=== PATIENT | male | born 1955 | race Hispanic/Latino ===

== ENCOUNTER 2018-04-17 01:37 | Inpatient (IN) | payer MEDICARE ==
[2018-04-17] MEDS ORDERED: Albuterol-Ipratrop 3 mg / 0.5 (3 ml) UD INH STA (01:52)
--- NOTE | 2018-04-17 01:54 | C.PDOC ---
History Of Present Illness 62-year-old male brought in by ambulance after he was found in a friend's bed having a seizure. EMS arrived and found patient to be post-ictal, with blood sugar of 28. Patient was given dextrose in the field, and sugar improved. Records reviewed, and patient was just discharged home on 03/12/18. PMHx includes stage 5 chronic kidney disease, HTN, hypercholesterolemia, CHF, CVA w/ resulting right hemiparesis, and diabetes mellitus. Last admission patient was refusing dialysis. Recent echocardiogram revealed diastolic dysfunction and EF of 55-56%. All history obtained via EMS. There is no evidence of trauma to head or extremities. Time Seen by Provider: 04/17/18 01:42 Chief Complaint (Nursing): Altered Mental Status History Per: EMS History/Exam Limitations: None Onset/Duration Of Symptoms: Unknown Onset Of Symptoms: Cannot Confirm Onset Current Symptoms Are (Timing): Better Associated Symptoms: Seizure Past Medical History Reviewed: Historical Data, Nursing Documentation, Vital Signs Vital Signs: Last Vital Signs Temp 97.4 F L 04/17/18 02:43 Pulse 47 L 04/17/18 04:09 Resp 12 04/17/18 04:09 BP 131/67 04/17/18 04:09 Pulse Ox 99 04/17/18 04:12 - Medical History PMH: CHF, CVA (x3), Diabetes, HTN, Kidney Stones, Chronic Kidney Disease Surgical History: No Surg Hx Family History: States: Unknown Family Hx - Social History Hx Alcohol Use: Yes Hx Substance Use: No - Immunization History Hx Tetanus Toxoid Vaccination: No Hx Influenza Vaccination: No Hx Pneumococcal Vaccination: No Review Of Systems Review Of Systems: ROS cannot be obtained secondary to pt's inabilty to answer questions. Constitutional: Negative for: Fever, Chills Eyes: Negative for: Pain, Vision Change ENT: Negative for: Ear Pain, Ear Discharge, Nose Pain Cardiovascular: Negative for: Chest Pain, Palpitations, Orthopnea, Paroxysmal Noc. Dyspnea Respiratory: Positive for: Shortness of Breath. Negative for: Cough Gastrointestinal: Negative for: Nausea, Vomiting Genitourinary: Negative for: Dysuria, Incontinence Neurological: Negative for: Weakness, Numbness Psych: Negative for: Anxiety Physical Exam - Physical Exam Appears: Non-toxic, No Acute Distress Skin: Normal Color, Warm Head: Atraumatic, Normacephalic, No Swelling (or hematoma) Eye(s): bilateral: Normal Inspection (no scleral icterus), PERRL, EOMI Ear(s): Bilateral: Normal Nose: Normal Oral Mucosa: Moist Tongue: Normal Appearing Lips: Normal Appearing Teeth: Normal Dentition Neck: Supple Chest: Symmetrical Cardiovascular: Rhythm Regular, No Murmur Respiratory: No Accessory Muscle Use, No Rales, No Rhonchi, Wheezing ( expiratory wheezing bilaterally) Gastrointestinal/Abdominal: Soft, No Tenderness, No Distention Extremity: Bilateral: Atraumatic, No Pedal Edema, Normal Color And Temperature, Normal ROM Pulses: Left Dorsalis Pedis: Normal, Right Dorsalis Pedis: Normal Neurological/Psych: Other (Alert, awake, responds appropriately to questions) ED Course And Treatment - Laboratory Results Result Diagrams: 04/17/18 02:06 04/17/18 02:06 ECG: Interpreted By Me, Viewed By Nh ECG Rhythm: Sinus Bradycardia Interpretation Of ECG: sinus meliza at 46 bpm, AK 196, QRS 126, QT 504, QTc 450. T-wave inversions in 1 and avL. Rate From EC O2 Sat by Pulse Oximetry: 99 (RA) Pulse Ox Interpretation: Normal - Radiology CXR: Interpreted by Me, Viewed By Nh CXR Interpretation: Yes: Infiltrates (Right-sided) - CT Scan/US Head CT Other Rad Studies (CT/US): Read By Radiologist, Radiology Report Reviewed CT/US Interpretation: Name: CHIARA CHAN Age: 62Years M Date: 04/17/2018. Requesting Physician: Mitchell Cassidy : 1955. [facility] Procedure Ordered As Accession Number of Images. CT HEAD WO CT HEAD W O CONTRAST [id number] 132. Provided Clinical History: AMS. EXAM: CT Head Without Intravenous Contrast. EXAM DATE/TIME: 04/17/2018 1:51 AM. CLINICAL HISTORY: 62 years old, male; Pain; Headache and other: AMS; Patient HX: 8- 18. TECHNIQUE: Axial computed tomography images of the head/brain without intravenous contrast. 132 images are. submitted. Axial reformatted images are submitted in bone windows. All CT scans at this facility use at least one of these dose optimization techniques: automated. exposure control; mA and/or kV adjustment per patient size (includes targeted exams where dose is. matched to clinical indication); or iterative reconstruction. COMPARISON: No relevant prior studies available. FINDINGS: Brain: Cerebral and cerebellar volume loss. Patchy hypodensity is seen in the periventricular and. subcortical white matter. Left hemispheric encephalomalacia near the vertex secondary to chronic. infarct. Bilateral chronic lacunar infarcts. Ventricles: Normal. No ventriculomegaly. Bones/joints: There is chronic fracture deformity of left medial orbital wall. Nonspecific nasal. fracture deformity representing chronic trauma. Sinuses: Patchy sinus disease. Mastoid air cells: Normal as visualized. No mastoid effusion. Orbits: The globe and lens are intact. Soft tissues: Normal. Vasculature: Vascular calcifications. IMPRESSION: No evidence of an acute intracranial hemorrhage, midline shift or mass effect is identified. Chest CT Other Rad Studies (CT/US): Read By Radiologist, Radiology Report Reviewed CT/US Interpretation: Name: CHIARA CHAN Age: 62Years M Date: 04/17/2018. Requesting Physician: Mitchell Cassidy : 1955. [facility] Procedure Ordered As Accession Number of Images. CT CHEST WO CT CHEST W O CONTRAST [id number]. CT ABDOMEN WO CT CHEST W O CONTRAST [id number]. Provided Clinical History: sob. EXAM: CT Chest Without Intravenous Contrast. EXAM DATE/TIME: 04/17/2018 2:38 AM. CLINICAL HISTORY: 62 years old, male; Pain; Chest pain; Patient HX: 11-3-17; Additional info: SOB. TECHNIQUE: Axial computed tomography images of the chest without intravenous contrast. All CT scans at this facility use at least one of these dose optimization techniques: automated. exposure control; mA and/or kV adjustment per patient size (includes targeted exams where dose is. matched to clinical indication); or iterative reconstruction. Coronal and sagittal reformatted images were created and reviewed. COMPARISON: SD - CHEST ONE VIEW 08/23/2015 6:48 PM. FINDINGS: Lungs: Mild parabronchial cuffing, with bilateral basilar infiltration which can be seen with bronchitis,. reactive airway disease or viral pneumonitis versus mild failure. Pleural space: Normal. No pneumothorax. No pleural effusion. Heart: Cardiomegaly. Mediastinum : Small hiatal hernia. Aorta: Normal. No aortic aneurysm. Lymph nodes: Unremarkable. No enlarged lymph nodes. Bones/joints: There is misregistration artifact involving the inferior sternum seen on image 95. series 602 with an artifactual fracture. Correlation with clinical data is recommended if sternal fracture. is clinically suspected. Soft tissues: Unremarkable. IMPRESSION: Mild parabronchial cuffing, with bilateral basilar infiltration which can be seen with bronchitis, reactive. airway disease or viral pneumonitis versus mild failure. Abdomen CT Other Rad Studies (CT/US): Read By Radiologist, Radiology Report Reviewed CT/US Interpretation: EXAM: CT Abdomen Without Intravenous Contrast. EXAM DATE /TIME: 04/17/2018 2:38 AM. CLINICAL HISTORY: 62 years old, male; Pain; Chest pain; Patient HX: 1117; Additional info: SOB. TECHNIQUE: Axial computed tomography images of the abdomen without intravenous contrast. COMPARISON: SD - CHEST ONE VIEW 08/23/2015 6:48 PM. FINDINGS: Lower thorax: Unremarkable. Liver: Hyperdense liver. Correlation with patient's clinical history of amiodarone use can be helpful. Gallbladder and bile ducts: Normal. No calcified stones. No ductal dilation. Pancreas: Normal. No ductal dilation. Spleen: Normal. No splenomegaly. Adrenals: Normal. No mass. Kidneys and ureters: There are renal hypodensities too small to characterize. Right renal. hypodensity with associated calcification. Stomach and bowel: Possible diverticulosis. No obstruction. No mucosal thickening. Intraperitoneal space: Unremarkable. No free air. No significant fluid collection. Bones/joints: Unremarkable.No acute fracture. No dislocation. Soft tissues: Unremarkable. Vasculature: The aorta demonstrates calcified plaque and is mildly ectatic but normal in caliber. Lymph nodes: Unremarkable. No enlarged lymph nodes. IMPRESSION: No acute abnormality on this noncontrast CT examination of the abdomen. Critical Care Time - Critical Care Note Total Time (in mins): 39 Documented critical care: time excludes all time spent performing seperately billable procedures. Medical Decision Making Medical Decision Making: Initial Impression: Seizure - loaded with keppra 1 grma her with hypoglycemia trteated with dextrose by EMS prior to arrival. Initial Plan: --EKG --Labs --Head CT- ordered adn reviewed without acute pathology --Chest X-Ray - right sided opacity --Duoneb x2 INH for sob/ wheezing and abdominal retractions --Peak Flow pre/post neb --Reassessment CXR shows right-sided infiltrate. Non-contrast CT Chest ordered for further evaluation. Head CT is negative. CT Chest shows mild parabronchial cuffing, with bilateral basilar infiltration. will cover with broda spectrum abx. pt wit second episode of hypoglycemia. dextrose 50 ml of 50% as well as 5mcg octreotide ordered 3:40am Paged Dr. Kiya Massey, who accepts patient for admission. Disposition Discussed With Dr.: Ji Massey Doctor Will See Patient In The: Hospital - Disposition Disposition: HOSPITALIZED Disposition Time: 03:40 Condition: GUARDED Forms: [employer] (Maltese) - Clinical Impression Clinical Impression: SOB (shortness of breath), Hypoglycemia, Seizure - Scribe Statement The provider has reviewed the documentation as recorded by the Dian Church Provider Attestation: All medical record entries made by the Aileenibloren were at my direction and personally dictated by me. I have reviewed the chart and agree that the record accurately reflects my personal performance of the history, physical exam, medical decision making, and the department course for this patient. I have also personally directed, reviewed, and agree with the discharge instructions and disposition.
[2018-04-17] MEDS ORDERED: Albuterol-Ipratrop 3 mg / 0.5 (3 ml) UD ONE (02:04)
[2018-04-17 02:28] LABS: ALB/GLOB RATIO 1.3 (1.0-2.1); ALBUMIN 4.5 g/dL (3.5-5.0); BASO # 0.1 K/uL (0.0-0.2); BASO % 1.1 % (0.0-2.0); BLOOD UREA NITROGEN 47 mg/dL (9-20); CALCIUM 8.8 mg/dl (8.6-10.4); EOS # 0.4 K/uL (0.0-0.7); EOS % 6.3 % (0.0-4.0); GFR NON-AFRICAN AMERICAN 15; HEMOGLOBIN 10.4 g/dL (12.0-18.0); LIPASE 160 U/L (23-300); LYMPH # 1.3 K/uL (1.0-4.3); LYMPH % 20.2 % (20.0-40.0); MEAN CELL VOLUME 90.9 fL (80.0-94.0); MEAN CORPUSCULAR HEMOGLOBIN 31.2 pg (27.0-31.0); MEAN CORPUSCULAR HGB CONC 34.4 g/dL (33.0-37.0); MEAN PLATELET VOLUME 7.2 fL (7.2-11.7); MONO # 0.6 K/uL (0.0-0.8); MONO % 9.5 % (0.0-10.0); NEUT # 4.1 K/uL (1.8-7.0); NEUT % 62.9 % (50.0-75.0); RBC 3.32 Mil/uL (4.40-5.90); RED CELL DISTRIBUTION WIDTH 13.7 % (11.5-14.5); WHITE BLOOD COUNT 6.6 K/uL (4.8-10.8)
[2018-04-17 02:30] LABS: PROTHROMBIN TIME 10.9 SECONDS (9.7-12.2)
[2018-04-17 02:51] LABS: ALT/SGPT 20 U/L (21-72); AST/SGOT 18 U/L (17-59)
[2018-04-17] MEDS ORDERED: Azithromycin 500mg/250ML NS 500 MG/250 ML BAG IV STA (03:38)
[2018-04-17] MEDS ORDERED: cefTRIAXone IV 1 gm in Dextros 50 ML IV STA (03:38)
[2018-04-17] MEDS ORDERED: Dextrose 50% SYRINGE Inj (50 ml) ONE (03:40)
[2018-04-17] MEDS: Dextrose 50% SYRINGE Inj (50 ml) IV STA ×2 (03:40→03:52)
[2018-04-17] MEDS ORDERED: Dextrose 50% SYRINGE Inj (50 ml) IV STA (03:45)
[2018-04-17] MEDS ORDERED: Ergocalciferol 50,000 Intl Units Cap PO SCH (04:00)
[2018-04-17] MEDS ORDERED: Azithromycin 500mg/250ML NS 500 MG/250 ML BAG IVPB ONE (05:03)
[2018-04-17 05:32] LABS: URINE BACTERIA RARE (<OCC); URINE BILIRUBIN NEGATIVE (NEGATIVE); URINE CLARITY Clear (Clear); URINE COLOR Straw (YELLOW); URINE GLUCOSE (UA) NORMAL (Normal); URINE LEUKOCYTE ESTERASE NEG Leu/uL (Negative); URINE PROTEIN 3+ mg/dL (NEGATIVE); URINE UROBILINOGEN NORMAL mg/dL (0.2-1.0)
[2018-04-17 05:46] LABS: BENZODIAZEPINES, UR NEGATIVE (NEGATIVE); OPIATES, UR NEGATIVE (NEGATIVE); PHENCYCLIDINE, UR NEGATIVE (NEGATIVE)
[2018-04-17 05:51] LABS: BARBITURATES, UR NEGATIVE (NEGATIVE)
[2018-04-17 06:05] LABS: URINE BLOOD TRACE (NEGATIVE)
--- NOTE | 2018-04-17 07:16 | CT ---
Date of service: 04/17/2018 PROCEDURE: CT HEAD WITHOUT CONTRAST. HISTORY: Altered mental status COMPARISON: None available. TECHNIQUE: Axial computed tomography images were obtained through the head/brain without intravenous contrast. Radiation dose: Total exam DLP = 971 mGy-cm. This CT exam was performed using one or more of the following dose reduction techniques: Automated exposure control, adjustment of the mA and/or kV according to patient size, and/or use of iterative reconstruction technique. FINDINGS: HEMORRHAGE: No intracranial hemorrhage. BRAIN: Cerebral and cerebellar volume loss. Scattered focal lucencies in the subcortical and periventricular white matter suggestive for chronic microvascular ischemic change. Left hemispheric encephalomalacia near the vertex secondary to chronic infarct. Bilateral chronic lacunar infarcts. Small focal hypodensity in the left inferior cerebellum suggestive for a small infarct. VENTRICLES: Unremarkable. No hydrocephalus. CALVARIUM: Chronic fracture deformity of the left medial orbital wall. Nonspecific nasal fracture deformity likely representing chronic trauma. PARANASAL SINUSES: Patchy sinus mucosal disease. MASTOID AIR CELLS: Unremarkable as visualized. No inflammatory changes. OTHER FINDINGS: Vascular calcifications. IMPRESSION: No acute intracranial abnormality. If symptoms persists, consider correlation with MRI. Chronic microvascular ischemic change. Left hemispheric encephalomalacia likely secondary to chronic infarct. Bilateral chronic lacunar infarcts. Small focal hypodensity in the left inferior cerebellum suggestive for a small infarct. Chronic fracture deformities as described above. These findings were preliminarily reported at 3:16 a.m. on 04/17/[address] Mirta Kerns from [facility].
--- NOTE | 2018-04-17 10:35 | RAD ---
Date of service: 04/17/2018 PROCEDURE: CHEST RADIOGRAPH, 1 VIEW HISTORY: AMS COMPARISON: Portable chest 06/08/2017. FINDINGS: LUNGS: Prominent elevation the right hemidiaphragm is appreciated of uncertain origin in the interval. No airspace disease identified bilaterally. PLEURA: No pneumothorax or pleural fluid seen. CARDIOVASCULAR: Cardiomegaly is stable. Mild pulmonary vascular congestion is suspected. Limited penetration technique accentuates the vascular anatomy however and further clinical correlation is recommended prior OSSEOUS STRUCTURES: No significant abnormalities. VISUALIZED UPPER ABDOMEN: Normal. OTHER FINDINGS: None. IMPRESSION: Mild pulmonary vascular congestion suspected. Stable cardiomegaly. No acute airspace disease bilaterally. The liver hemidiaphragm of uncertain origin.
[2018-04-17] MEDS: Pantoprazole 40 mg EC Tab PO SCH (11:08)
[2018-04-17] MEDS: Ergocalciferol 50,000 Intl Units Cap PO SCH (11:08)
[2018-04-17] MEDS: Azithromycin 500 MG in Sodium Chloride 0.9% 250 ML IVPB SCH (11:09)
[2018-04-17] MEDS ORDERED: Potassium Chloride 20 mEq/15 ml LIQ UD PO ONE (14:30)
--- NOTE | 2018-04-17 15:20 | CT ---
Date of Service: 04/17/18 CT chest without IV contrast Indication: Shortness of breath Technique: Contiguous axial images were obtained through the chest without intravenous contrast enhancement. Sagittal and coronal reconstructions were generated and reviewed. This CT exam was performed using 1 or more of the following dose reduction techniques: Automated exposure control, adjustment of the MAA and/or kV according to patient size, and/or use of iterative reconstruction technique. Radiation dose (DLP): 1127.62 MGy-cm. Comparison: Chest x-ray performed 04/17/18 Findings: Visualized portions of the inferior thyroid gland appear unremarkable. Cardiomegaly. Coronary artery calcifications. At the right lung base, irregularly-shaped opacity re-identified with questionable vascular continuity with the esophagus; indeterminate by noncontrast chest CT. Considerations include but not limited to pulmonary sequestration.Mild peribronchial cuffing and bibasilar atelectasis which may be seen with reactive airways disease, bronchitis, viral pneumonitis. No pleural effusion. No pneumothorax. Small hiatal hernia/distal esophageal wall thickening. Hyperdense liver ; correlate clinically for amiodarone use. The noncontrast gallbladder, pancreas, spleen, and adrenal glands appear unremarkable. Too small to characterize renal hypodensities ; statistically likely cysts. Right renal hypodensity contains punctate calcification and measures approximately 3.2 cm. Degenerative changes of the osseous structures. Impression: At the right lung base, irregularly-shaped opacity re-identified with questionable vascular continuity with the esophagus; indeterminate by noncontrast chest CT. Considerations include but not limited to pulmonary sequestration.Mild peribronchial cuffing and bibasilar atelectasis which may be seen with reactive airways disease, bronchitis, viral pneumonitis. Hyperdense liver ; correlate clinically for amiodarone use. Too small to characterize renal hypodensities ; statistically likely cysts. Indeterminate right renal hypodensity contains punctate calcification and measures approximately 3.2 cm in 20 HU higher than expected for simple cyst ; renal ultrasound may be considered for further evaluation. Additional findings as above. Preliminary impression was provided by [facility].
[2018-04-17] MEDS ORDERED: Pneumococcal 23-Valent Vaccine IM ONE (19:53)
[2018-04-17] MEDS ORDERED: Potassium Chloride 20 mEq ER Tab PO STA (19:53)
[2018-04-17] MEDS ORDERED: Potassium Chloride 10 mEq ER Tab PO STA (19:55)
--- NOTE | 2018-04-17 20:38 | CP.PCM.HP ---
Past Patient History - Infectious Disease Hx of Infectious Diseases: None - Past Medical History & Family History Past Medical History?: Yes - Past Social History Smoking Status: Former Smoker - CARDIAC Hx Cardiac Disorders: Yes Hx Congestive Heart Failure: Yes Hx Hypertension: Yes - PULMONARY Hx Respiratory Disorders: No - NEUROLOGICAL Hx Neurological Disorder: Yes HX Cerebrovascular Accident: Yes Hx Seizures: Yes - HEENT Hx HEENT Problems: No - RENAL Hx Chronic Kidney Disease: Yes Hx Kidney Stones: Yes - ENDOCRINE/METABOLIC Hx Endocrine Disorders: Yes Hx Diabetes Mellitus Type 2: Yes - HEMATOLOGICAL/ONCOLOGICAL Hx Blood Disorders: No Hx Blood Transfusions: No - INTEGUMENTARY Hx Dermatological Problems: No - MUSCULOSKELETAL/RHEUMATOLOGICAL Hx Falls: No - GASTROINTESTINAL Hx Gastrointestinal Disorders: No - GENITOURINARY/GYNECOLOGICAL Hx Genitourinary Disorders: No - PSYCHIATRIC Hx Psychophysiologic Disorder: No Hx Substance Use: No - SURGICAL HISTORY Hx Surgeries: No - ANESTHESIA Hx Anesthesia: No Hx Anesthesia Reactions: No Hx Malignant Hyperthermia: No Has any member of the family had a problem w/ anesthesia?: No Meds Allergies/Adverse Reactions: Allergies Allergy/AdvReac Type Severity Reaction Status Date / Time No Known Allergies Allergy Verified 04/17/18 01:49 Physical Exam - Constitutional Appears: Well - Head Exam Head Exam: ATRAUMATIC, NORMAL INSPECTION, NORMOCEPHALIC - Eye Exam Eye Exam: EOMI, Normal appearance, PERRL Pupil Exam: NORMAL ACCOMODATION, PERRL - ENT Exam ENT Exam: Mucous Membranes Moist, Normal Exam - Neck Exam Neck exam: Positive for: Normal Inspection - Respiratory Exam Respiratory Exam: Decreased Breath Sounds - Cardiovascular Exam Cardiovascular Exam: REGULAR RHYTHM, +S1, +S2 - GI/Abdominal Exam GI & Abdominal Exam: Diminished Bowel Sounds, Soft - Rectal Exam Rectal Exam: Deferred Results - Vital Signs Recent Vital Signs: Last Vital Signs Temp 98.6 F 04/17/18 20:34 Pulse 68 04/17/18 20:34 Resp 24 04/17/18 20:34 BP 169/85 H 04/17/18 20:34 Pulse Ox 100 04/17/18 20:34 - Labs Result Diagrams: 04/17/18 02:06 04/17/18 02:06 Labs: Laboratory Results - last 24 hr 04/17/18 04/17/18 04/17/18 01:43 02:06 02:06 WBC 6.6 D RBC 3.32 L Hgb 10.4 L Hct 30.2 L MCV 90.9 D MCH 31.2 H MCHC 34.4 RDW 13.7 Plt Count 233 MPV 7.2 Neut % (Auto) 62.9 Lymph % (Auto) 20.2 Cannon % (Auto) 9.5 Eos % (Auto) 6.3 H Baso % (Auto) 1.1 Neut # (Auto) 4.1 Lymph # (Auto) 1.3 Cannon # (Auto) 0.6 Eos # (Auto) 0.4 Baso # (Auto) 0.1 PT 10.9 INR 1.0 APTT 31 Sodium Potassium Chloride Carbon Dioxide Anion Gap BUN Creatinine Est GFR ( Amer) Est GFR (Non-Af Amer) POC Glucose (mg/dL) 112 H Random Glucose Lactic Acid Calcium Total Bilirubin AST ALT Alkaline Phosphatase Troponin I Total Protein Albumin Globulin Albumin/Globulin Ratio Lipase Urine Color Urine Clarity Urine pH Ur Specific [place] Urine Protein Urine Glucose (UA) Urine Ketones Urine Blood Urine Nitrate Urine Bilirubin Urine Urobilinogen Ur Leukocyte Esterase Urine WBC (Auto) Urine RBC (Auto) Urine Bacteria Urine Opiates Screen Urine Methadone Screen Ur Barbiturates Screen Ur Phencyclidine Scrn Ur Amphetamines Screen U Benzodiazepines Scrn U Oth Cocaine Metabols U Cannabinoids Screen Alcohol, Quantitative 04/17/18 04/17/18 04/17/18 02:06 02:07 03:32 WBC RBC Hgb Hct MCV MCH MCHC RDW Plt Count MPV Neut % (Auto) Lymph % (Auto) Cannon % (Auto) Eos % (Auto) Baso % (Auto) Neut # (Auto) Lymph # (Auto) Cannon # (Auto) Eos # (Auto) Baso # (Auto) PT INR APTT Sodium 138 Potassium 3.3 L Chloride 101 Carbon Dioxide 18 L Anion Gap 22 H BUN 47 H Creatinine 4.1 H Est GFR ( Amer) 18 Est GFR (Non-Af Amer) 15 POC Glucose (mg/dL) 37 L* Random Glucose 100 Lactic Acid 0.8 Calcium 8.8 Total Bilirubin 0.6 AST 18 ALT 20 L Alkaline Phosphatase 123 Troponin I 0.0330 Total Protein 8.1 Albumin 4.5 Globulin 3.6 Albumin/Globulin Ratio 1.3 Lipase 160 Urine Color Urine Clarity Urine pH Ur Specific [place] Urine Protein Urine Glucose (UA) Urine Ketones Urine Blood Urine Nitrate Urine Bilirubin Urine Urobilinogen Ur Leukocyte Esterase Urine WBC (Auto) Urine RBC (Auto) Urine Bacteria Urine Opiates Screen Urine Methadone Screen Ur Barbiturates Screen Ur Phencyclidine Scrn Ur Amphetamines Screen U Benzodiazepines Scrn U Oth Cocaine Metabols U Cannabinoids Screen Alcohol, Quantitative < 10 04/17/18 04/17/18 04/17/18 03:34 04:16 05:27 WBC RBC Hgb Hct MCV MCH MCHC RDW Plt Count MPV Neut % (Auto) Lymph % (Auto) Cannon % (Auto) Eos % (Auto) Baso % (Auto) Neut # (Auto) Lymph # (Auto) Cannon # (Auto) Eos # (Auto) Baso # (Auto) PT INR APTT Sodium Potassium Chloride Carbon Dioxide Anion Gap BUN Creatinine Est GFR ( Amer) Est GFR (Non-Af Amer) POC Glucose (mg/dL) 36 L* 120 H Random Glucose Lactic Acid Calcium Total Bilirubin AST ALT Alkaline Phosphatase Troponin I Total Protein Albumin Globulin Albumin/Globulin Ratio Lipase Urine Color Straw Urine Clarity Clear Urine pH 6.0 Ur Specific [place] 1.007 Urine Protein 3+ H Urine Glucose (UA) Normal Urine Ketones Negative Urine Blood Trace H Urine Nitrate Negative Urine Bilirubin Negative Urine Urobilinogen Normal Ur Leukocyte Esterase Neg Urine WBC (Auto) 1 Urine RBC (Auto) 1 Urine Bacteria Rare Urine Opiates Screen Urine Methadone Screen Ur Barbiturates Screen Ur Phencyclidine Scrn Ur Amphetamines Screen U Benzodiazepines Scrn U Oth Cocaine Metabols U Cannabinoids Screen Alcohol, Quantitative 04/17/18 04/17/18 04/17/18 05:27 05:36 06:19 WBC RBC Hgb Hct MCV MCH MCHC RDW Plt Count MPV Neut % (Auto) Lymph % (Auto) Cannon % (Auto) Eos % (Auto) Baso % (Auto) Neut # (Auto) Lymph # (Auto) Cannon # (Auto) Eos # (Auto) Baso # (Auto) PT INR APTT Sodium Potassium Chloride Carbon Dioxide Anion Gap BUN Creatinine Est GFR ( Amer) Est GFR (Non-Af Amer) POC Glucose (mg/dL) 93 85 Random Glucose Lactic Acid Calcium Total Bilirubin AST ALT Alkaline Phosphatase Troponin I Total Protein Albumin Globulin Albumin/Globulin Ratio Lipase Urine Color Urine Clarity Urine pH Ur Specific [place] Urine Protein Urine Glucose (UA) Urine Ketones Urine Blood Urine Nitrate Urine Bilirubin Urine Urobilinogen Ur Leukocyte Esterase Urine WBC (Auto) Urine RBC (Auto) Urine Bacteria Urine Opiates Screen Negative Urine Methadone Screen Negative Ur Barbiturates Screen Negative Ur Phencyclidine Scrn Negative Ur Amphetamines Screen Negative U Benzodiazepines Scrn Negative U Oth Cocaine Metabols Negative U Cannabinoids Screen Negative Alcohol, Quantitative 04/17/18 04/17/18 04/17/18 08:32 12:49 16:03 WBC RBC Hgb Hct MCV MCH MCHC RDW Plt Count MPV Neut % (Auto) Lymph % (Auto) Cannon % (Auto) Eos % (Auto) Baso % (Auto) Neut # (Auto) Lymph # (Auto) Cannon # (Auto) Eos # (Auto) Baso # (Auto) PT INR APTT Sodium Potassium Chloride Carbon Dioxide Anion Gap BUN Creatinine Est GFR ( Amer) Est GFR (Non-Af Amer) POC Glucose (mg/dL) 117 H 145 H 127 H Random Glucose Lactic Acid Calcium Total Bilirubin AST ALT Alkaline Phosphatase Troponin I Total Protein Albumin Globulin Albumin/Globulin Ratio Lipase Urine Color Urine Clarity Urine pH Ur Specific [place] Urine Protein Urine Glucose (UA) Urine Ketones Urine Blood Urine Nitrate Urine Bilirubin Urine Urobilinogen Ur Leukocyte Esterase Urine WBC (Auto) Urine RBC (Auto) Urine Bacteria Urine Opiates Screen Urine Methadone Screen Ur Barbiturates Screen Ur Phencyclidine Scrn Ur Amphetamines Screen U Benzodiazepines Scrn U Oth Cocaine Metabols U Cannabinoids Screen Alcohol, Quantitative
[2018-04-18 08:43] VITALS: RESP 20
--- NOTE | 2018-04-18 10:32 | CP.PCM.PN ---
Subjective - Date & Time of Evaluation Date of Evaluation: 04/18/18 Time of Evaluation: 10:30 - Subjective Subjective: clinically same Objective - Vital Signs/Intake and Output Vital Signs (last 24 hours): Temp Pulse Resp BP Pulse Ox 98.5 F 68 20 168/82 H 99 04/18/18 08:42 04/18/18 08:45 04/18/18 08:42 04/18/18 08:42 04/18/18 08:42 Intake and Output: 04/18/18 04/18/18 06:59 18:59 Intake Total 660 Output Total 900 Balance -240 - Medications Medications: Current Medications Allopurinol (Zyloprim) 100 mg PO DAILY [facility] Last Admin: 04/17/18 11:09 Dose: 100 mg Amlodipine Besylate (Norvasc) 10 mg PO Q24H [facility] Last Admin: 04/17/18 17:44 Dose: 10 mg Aspirin (Aspirin Chewable) 81 mg PO DAILY [facility] Last Admin: 04/17/18 11:07 Dose: 81 mg Calcitriol (Rocaltrol) 0.5 mcg PO DAILY [facility] Last Admin: 04/17/18 11:09 Dose: 0.5 mcg Carvedilol (Coreg) 25 mg PO BID [facility] Last Admin: 04/17/18 17:44 Dose: 25 mg Ergocalciferol (Drisdol 50,000 Intl Units Cap) 1 cap PO Q7D [facility] Last Admin: 04/17/18 11:08 Dose: 1 cap Finasteride (Proscar) 5 mg PO DAILY [facility] Last Admin: 04/17/18 11:08 Dose: 5 mg Furosemide (Lasix) 20 mg PO DAILY [facility] Last Admin: 04/17/18 11:08 Dose: 20 mg Heparin Sodium (Porcine) (Heparin) 5,000 units SC DAILY [facility] Last Admin: 04/17/18 12:09 Dose: Not Given Azithromycin 500 mg/ Sodium (Chloride) 250 mls @ 250 mls/hr IVPB DAILY [facility] PRN Reason: Protocol Last Admin: 04/17/18 11:09 Dose: 250 mls/hr Ceftriaxone Sodium 1 gm/ (Sodium Chloride) 100 mls @ 50 mls/30 min IVPB Q24H [facility] PRN Reason: Protocol Last Admin: 04/18/18 03:58 Dose: 50 mls/30 min Dextrose (Dextrose 10% In Water) 1,000 mls @ 20 mls/hr IV .Q24H [facility] Last Admin: 04/18/18 03:51 Dose: Not Given Pantoprazole Sodium (Protonix Ec Tab) 40 mg PO DAILY [facility] Last Admin: 04/17/18 11:08 Dose: 40 mg Rosuvastatin Calcium (Crestor) 5 mg PO HS [facility] Last Admin: 04/17/18 21:34 Dose: 5 mg Sodium Bicarbonate (Sodium Bicarbonate Tab) 1,300 mg PO BID [facility] Last Admin: 04/17/18 17:45 Dose: 1,300 mg Tamsulosin HCl (Flomax) 0.4 mg PO DAILY [facility] Last Admin: 04/17/18 11:08 Dose: 0.4 mg - Labs Labs: 04/17/18 02:06 04/17/18 02:06 PT 10.9 SECONDS (9.7-12.2) 04/17/18 02:06 INR 1.0 04/17/18 02:06 APTT 31 SECONDS (21-34) 04/17/18 02:06
[2018-04-18] MEDS: Azithromycin 500 MG in Sodium Chloride 0.9% 250 ML IVPB SCH (10:54)
[2018-04-18] MEDS: Pantoprazole 40 mg EC Tab PO SCH (10:55)
[2018-04-18 13:38] VITALS: BMI 32.4
[2018-04-18] MEDS: Albuterol-Ipratrop 3 mg / 0.5 (3 ml) UD INH SCH ×2 (13:39→19:48)
--- NOTE | 2018-04-18 17:57 | CP.PCM.CON ---
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 On the morning of admission, patient was found in bed having a seizure. EMS found patient in postictal state on arrival. EMS assessed blood glucose to be 28 and he was given dextrose. He does not recall when his last meal was before going to bed and was feeling well before bed. He does not know how long he was convulsing for or if it was a whole body convulsion vs local shaking. He's had recent admission for symptoms related to low glucose in the past, In ED patient was given 1g Keppra. CT scan ordered in ED showed no ICH. At the time of exam he denies headache, blurry vision, dizziness, lightheadedness, numbness, weakness, paresthesias. 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 Denies alcohol use. Former Smoker quit 25 years ago. Review of Systems - Constitutional Constitutional: absent: Chills, Fever - EENT Eyes: absent: Blurred Vision - Cardiovascular Cardiovascular: absent: Chest Pain - Respiratory Respiratory: absent: Dyspnea - Gastrointestinal Gastrointestinal: absent: Abdominal Pain - Neurological Neurological: Numbness, Focal Weakness. absent: Abnormal Hearing, Convulsions, Disequilibrium, Dizziness, Restless Legs, Syncope, Vertigo Past Patient History - Infectious Disease Hx of Infectious Diseases: None - Past Medical History & Family History Past Medical History?: Yes - Past Social History Smoking Status: Former Smoker - CARDIAC Hx Cardiac Disorders: Yes Hx Congestive Heart Failure: Yes Hx Hypertension: Yes - PULMONARY Hx Respiratory Disorders: No - NEUROLOGICAL Hx Neurological Disorder: Yes HX Cerebrovascular Accident: Yes Hx Seizures: Yes - HEENT Hx HEENT Problems: No - RENAL Hx Chronic Kidney Disease: Yes Hx Kidney Stones: Yes - ENDOCRINE/METABOLIC Hx Endocrine Disorders: Yes Hx Diabetes Mellitus Type 2: Yes - HEMATOLOGICAL/ONCOLOGICAL Hx Blood Disorders: No Hx Blood Transfusions: No - INTEGUMENTARY Hx Dermatological Problems: No - MUSCULOSKELETAL/RHEUMATOLOGICAL Hx Falls: No - GASTROINTESTINAL Hx Gastrointestinal Disorders: No - GENITOURINARY/GYNECOLOGICAL Hx Genitourinary Disorders: No - PSYCHIATRIC Hx Psychophysiologic Disorder: No Hx Substance Use: No - SURGICAL HISTORY Hx Surgeries: No - ANESTHESIA Hx Anesthesia: No Hx Anesthesia Reactions: No Hx Malignant Hyperthermia: No Has any member of the family had a problem w/ anesthesia?: No Meds Allergies/Adverse Reactions: Allergies Allergy/AdvReac Type Severity Reaction Status Date / Time No Known Allergies Allergy Verified 04/17/18 01:49 - Medications Medications: Current Medications Albuterol/Ipratropium (Duoneb 3 Mg/0.5 Mg (3 Ml) Ud) 3 ml INH RQ6 [facility] Last Admin: 04/18/18 13:39 Dose: Not Given Allopurinol (Zyloprim) 100 mg PO DAILY [facility] Last Admin: 04/18/18 10:56 Dose: 100 mg Amlodipine Besylate (Norvasc) 10 mg PO Q24H [facility] Last Admin: 04/18/18 17:37 Dose: 10 mg Aspirin (Aspirin Chewable) 81 mg PO DAILY [facility] Last Admin: 04/18/18 10:56 Dose: 81 mg Calcitriol (Rocaltrol) 0.5 mcg PO DAILY [facility] Last Admin: 04/18/18 10:55 Dose: 0.5 mcg Carvedilol (Coreg) 25 mg PO BID [facility] Last Admin: 04/18/18 17:37 Dose: 25 mg Ergocalciferol (Drisdol 50,000 Intl Units Cap) 1 cap PO Q7D [facility] Last Admin: 04/17/18 11:08 Dose: 1 cap Finasteride (Proscar) 5 mg PO DAILY [facility] Last Admin: 04/18/18 10:56 Dose: 5 mg Furosemide (Lasix) 40 mg IVP Q12 [facility] Last Admin: 04/18/18 12:38 Dose: 40 mg Heparin Sodium (Porcine) (Heparin) 5,000 units SC Q12 [facility] Azithromycin 500 mg/ Sodium (Chloride) 250 mls @ 250 mls/hr IVPB DAILY [facility] PRN Reason: Protocol Last Admin: 04/18/18 10:54 Dose: 250 mls/hr Ceftriaxone Sodium 1 gm/ (Sodium Chloride) 100 mls @ 50 mls/30 min IVPB Q24H [facility] PRN Reason: Protocol Last Admin: 04/18/18 03:58 Dose: 50 mls/30 min Dextrose (Dextrose 10% In Water) 1,000 mls @ 20 mls/hr IV .Q24H [facility] Last Admin: 04/18/18 03:51 Dose: Not Given Pantoprazole Sodium (Protonix Ec Tab) 40 mg PO DAILY [facility] Last Admin: 04/18/18 10:55 Dose: 40 mg Potassium Chloride (K-Dur 20 Meq Er Tab) 20 meq PO DAILY [facility] Stop: 04/21/18 23:59 Rosuvastatin Calcium (Crestor) 5 mg PO HS [facility] Last Admin: 04/17/18 21:34 Dose: 5 mg Sodium Bicarbonate (Sodium Bicarbonate Tab) 1,300 mg PO BID [facility] Last Admin: 04/18/18 17:36 Dose: 1,300 mg Tamsulosin HCl (Flomax) 0.4 mg PO DAILY [facility] Last Admin: 04/18/18 10:55 Dose: 0.4 mg Physical Exam - Constitutional Appears: Well, Non-toxic, No Acute Distress - Head Exam Head Exam: ATRAUMATIC, NORMAL INSPECTION - Eye Exam Eye Exam: EOMI, PERRL. absent: Nystagmus, Scleral icterus - ENT Exam ENT Exam: Mucous Membranes Moist - Neck Exam Neck exam: Positive for: Normal Inspection. Negative for: Tenderness - Respiratory Exam Respiratory Exam: Clear to Auscultation Bilateral, NORMAL BREATHING PATTERN. absent: Rales, Rhonchi, Wheezes - Cardiovascular Exam Cardiovascular Exam: REGULAR RHYTHM, +S1, +S2. absent: Tachycardia, JVD, Systolic Murmur - GI/Abdominal Exam GI & Abdominal Exam: Normal Bowel Sounds, Soft. absent: Tenderness - Extremities Exam Extremities exam: Positive for: pedal edema - Neurological Exam Neurological exam: Abnormal Gait, Alert, Motor Sensory Deficit, Oriented x3 - Expanded Neurological Exam Expanded Patient oriented to: person, place, time Speech: Stutter Cranial nerves: EOM's Intact: Normal, Facial Sensation: Normal, Gag Reflex: Normal, Nystagmus: Normal, Tongue Deviation: Normal Cerebellar Function: Finger to Nose: Normal Upper motor neuron: Babinski Sign: Normal Sensory exam: Lower Extremity 2 Point Discrimination: Normal, Upper Extremity 2 Point Discrimination: Normal Neuro motor strength exam: Left Upper Extremity: 5, Right Upper Extremity: 4, Left Lower Extremity: 5, Right Lower Extremity: 4 DTR: Patellar Left: 2+, Patellar Right: 2+ Coma Scale Eye Opening: SPONTANEOUS Coma Scale Motor Response: OBEYS COMMANDS - Skin Skin Exam: Normal Color, Warm Results - Vital Signs Recent Vital Signs: Last Vital Signs Temp 97.7 F 04/18/18 16:00 Pulse 66 04/18/18 16:00 Resp 20 04/18/18 16:00 BP 155/66 H 04/18/18 17:37 Pulse Ox 98 04/18/18 16:00 - Labs Result Diagrams: 04/17/18 02:06 04/17/18 02:06 Labs: Laboratory Results - last 24 hr 04/17/18 04/18/18 04/18/18 20:48 02:23 06:06 POC Glucose (mg/dL) 116 H 98 90 04/18/18 04/18/18 11:48 17:00 POC Glucose (mg/dL) 163 H 117 H Assessment & Plan - Assessment and Plan (Free Text) Plan: Patient is a 62yo M with PMHx of CVAx3 w/ residual right hemiparesis, Diastolic CHF, DM, HTN, CKD stage 5, and nephrolithiasis, who presented with seizure activity: Seizure -Likely 2/2 to hypoglycemia, EMS found blood glucose to be 28 -No additional seizure activity reported -CT head w/o contrast: * No acute intracranial abnormality. If symptoms persists, consider correlation with MRI. Chronic microvascular ischemic change. Left hemispheric encephalomalacia likely secondary to chronic infarct. Bilateral chronic lacunar infarcts. Small focal hypodensity in the left inferior cerebellum suggestive for a small infarct. Chronic fracture deformities as described above. -MRI Brain w/o contrast ordered: -Ativan 2mg IVP Q4h PRN for seizure activity -AED agents not needed as seizure isolated and secondary to hypoglycemia, patient needs better management of his diabetes to avoid future hypoglycemia episodes -Seizure precautions Case discussed with Dr Biswas
[2018-04-19] MEDS: Albuterol-Ipratrop 3 mg / 0.5 (3 ml) UD INH SCH ×4 (01:17→19:58)
--- NOTE | 2018-04-19 10:45 | MRI ---
Date of service: 04/18/2018 PROCEDURE: MRI BRAIN WITHOUT CONTRAST HISTORY: abnormal ct scan of the head COMPARISON: Noncontrast head CT from 04/17/2018. TECHNIQUE: Multiplanar, multisequence MR images of the brain were obtained without intravenous contrast enhancement. FINDINGS: HEMORRHAGE: None DWI: No evidence of an acute or early subacute infarction. BRAIN PARENCHYMA: There are severe chronic microangiopathic changes. There are focal areas of cystic encephalomalacia and gliosis in the left frontal and left parietal lobes. There are old infarctions in the right basal ganglia. There is a small lacunar infarction in the left basal ganglia. The midline sagittal structures are normal. There are normal signal voids in the larger intracranial arteries. VENTRICLES: There is moderate age advanced global parenchymal volume loss and proportionate enlargement of the ventricles and cortical sulci. CRANIUM: There is normal bone marrow signal pattern. ORBITS: Grossly unremarkable. PARANASAL SINUSES/MASTOIDS: There is mild mucosal thickening in the paranasal sinuses and a small retention cyst/ polyp in the left maxillary sinus. VASCULAR SYSTEM: There are normal signal voids in the larger intracranial arteries. OTHER FINDINGS: None. IMPRESSION: No acute intracranial abnormality. Old lacunar infarctions in the bilateral basal ganglia, worse on the right. Multifocal cystic encephalomalacia and gliosis in the left frontal and parietal lobes, sequela of remote MCA territory infarction. Severe chronic microangiopathic changes and moderate age advanced global parenchymal volume loss. . A preliminary report was provided by [facility] services.
[2018-04-19] MEDS: Potassium Chloride 20 mEq ER Tab PO SCH (10:46)
[2018-04-19] MEDS: Azithromycin 500 MG in Sodium Chloride 0.9% 250 ML IVPB SCH (13:37)
--- NOTE | 2018-04-19 15:49 | CP.PCM.PN ---
Subjective - Date & Time of Evaluation Date of Evaluation: 04/19/18 Time of Evaluation: 11:15 - Subjective Subjective: clinically same Objective - Vital Signs/Intake and Output Vital Signs (last 24 hours): Temp Pulse Resp BP Pulse Ox 97.8 F 69 20 164/84 H 96 04/19/18 08:20 04/19/18 08:20 04/19/18 08:20 04/19/18 10:47 04/19/18 08:20 Intake and Output: 04/19/18 04/19/18 06:59 18:59 Intake Total 500 Output Total 1000 Balance -500 - Medications Medications: Current Medications Albuterol/Ipratropium (Duoneb 3 Mg/0.5 Mg (3 Ml) Ud) 3 ml INH RQ6 [facility] Last Admin: 04/19/18 13:43 Dose: Not Given Allopurinol (Zyloprim) 100 mg PO DAILY [facility] Last Admin: 04/19/18 10:46 Dose: 100 mg Amlodipine Besylate (Norvasc) 10 mg PO Q24H [facility] Last Admin: 04/18/18 17:37 Dose: 10 mg Aspirin (Aspirin Chewable) 81 mg PO DAILY [facility] Last Admin: 04/19/18 10:46 Dose: 81 mg Calcitriol (Rocaltrol) 0.5 mcg PO DAILY [facility] Last Admin: 04/19/18 10:46 Dose: 0.5 mcg Carvedilol (Coreg) 25 mg PO BID [facility] Last Admin: 04/19/18 10:46 Dose: 25 mg Ergocalciferol (Drisdol 50,000 Intl Units Cap) 1 cap PO Q7D [facility] Last Admin: 04/17/18 11:08 Dose: 1 cap Finasteride (Proscar) 5 mg PO DAILY [facility] Last Admin: 04/19/18 10:46 Dose: 5 mg Furosemide (Lasix) 40 mg IVP Q12 [facility] Last Admin: 04/19/18 10:47 Dose: 40 mg Heparin Sodium (Porcine) (Heparin) 5,000 units SC Q12 [facility] Last Admin: 04/19/18 10:51 Dose: Not Given Azithromycin 500 mg/ Sodium (Chloride) 250 mls @ 250 mls/hr IVPB DAILY [facility] PRN Reason: Protocol Last Admin: 04/19/18 13:37 Dose: 250 mls/hr Ceftriaxone Sodium 1 gm/ (Sodium Chloride) 100 mls @ 50 mls/30 min IVPB Q24H [facility] PRN Reason: Protocol Last Admin: 04/19/18 03:41 Dose: 50 mls/30 min Dextrose (Dextrose 10% In Water) 1,000 mls @ 20 mls/hr IV .Q24H [facility] Last Admin: 04/18/18 03:51 Dose: Not Given Lorazepam (Ativan) 2 mg IVP Q6H [facility] PRN Reason: Seizure activity Pantoprazole Sodium (Protonix Ec Tab) 40 mg PO DAILY [facility] Last Admin: 04/18/18 10:55 Dose: 40 mg Potassium Chloride (K-Dur 20 Meq Er Tab) 20 meq PO DAILY [facility] Stop: 04/21/18 23:59 Last Admin: 04/19/18 10:46 Dose: 20 meq Rosuvastatin Calcium (Crestor) 5 mg PO HS [facility] Last Admin: 04/18/18 22:30 Dose: 5 mg Sodium Bicarbonate (Sodium Bicarbonate Tab) 1,300 mg PO BID [facility] Last Admin: 04/19/18 10:46 Dose: 1,300 mg Tamsulosin HCl (Flomax) 0.4 mg PO DAILY [facility] Last Admin: 04/19/18 10:46 Dose: 0.4 mg - Labs Labs: 04/17/18 02:06 04/17/18 02:06 PT 10.9 SECONDS (9.7-12.2) 04/17/18 02:06 INR 1.0 04/17/18 02:06 APTT 31 SECONDS (21-34) 04/17/18 02:06
--- NOTE | 2018-04-19 19:09 | PQF ---
PROVIDER RESPONSE TEXT: Acute on chronic Diastolic CHF REVIEWER QUERY TEXT: CHF Acuity and Type Congestive Heart Failure is documented in the Medical Record. Please document the type and acuity (in cludes probable or suspected) Such as: Type: -- Systolic -- Diastolic -- Combined -- Other, please specify Acuity: -- Acute -- Chronic -- Acute on chronic -- Other, please specify Also please document the underlying cause of the CHF (includes probable or suspected) The patient's Clinical Indicators include: Pt. is 62 Y.O. male brought in by ambulance for seizure, EMS found pt. post-ictal with blood sugar 28 , Dextrose given in the field, and sugar improved. PMHx. CKD 5, HTN, CHF, CVA, DM. Admitted with Dx. SOB, Hypoglycemia, Seizure Echo: 03/09/18: Left EF is 55-60% As per ER notes: "Pt. with Diastolic Dysfunction". As per Discharge Notes: 03/12/18 : Dx. Chronic CHF Diastolic Dysfunction Tx; Lasix 20 mg PO OD, CMP monitoring. CXR: Cardiomegaly is stable, Mild Pulmonary vascular congestion. Query created by: Leidy Bettencourt on 04/18/2018 12:02 PM Electronically signed by: Ji GARCIA 04/19/2018 7:07 PM
[2018-04-19] MEDS ORDERED: Potassium Chloride 20 mEq ER Tab PO STA (19:11)
[2018-04-20] MEDS: Albuterol-Ipratrop 3 mg / 0.5 (3 ml) UD INH SCH ×5 (01:24→19:23)
[2018-04-20] MEDS: Potassium Chloride 20 mEq ER Tab PO SCH (10:50)
[2018-04-20] MEDS: Pantoprazole 40 mg EC Tab PO SCH (10:51)
[2018-04-20] MEDS: Azithromycin 500 MG in Sodium Chloride 0.9% 250 ML IVPB SCH (14:18)
--- NOTE | 2018-04-20 16:05 | CP.PCM.PN ---
Subjective - Date & Time of Evaluation Date of Evaluation: 04/20/18 Time of Evaluation: 11:15 - Subjective Subjective: clinically same Objective - Vital Signs/Intake and Output Vital Signs (last 24 hours): Temp Pulse Resp BP Pulse Ox 97.7 F 76 20 166/90 H 96 04/20/18 07:47 04/20/18 07:47 04/20/18 07:47 04/20/18 10:51 04/20/18 07:47 Intake and Output: 04/20/18 04/20/18 06:59 18:59 Output Total 650 Balance -650 - Medications Medications: Current Medications Albuterol/Ipratropium (Duoneb 3 Mg/0.5 Mg (3 Ml) Ud) 3 ml INH RQ6 [facility] Last Admin: 04/20/18 13:34 Dose: Not Given Allopurinol (Zyloprim) 100 mg PO DAILY [facility] Last Admin: 04/20/18 10:51 Dose: 100 mg Amlodipine Besylate (Norvasc) 10 mg PO Q24H [facility] Last Admin: 04/19/18 17:14 Dose: 10 mg Aspirin (Aspirin Chewable) 81 mg PO DAILY [facility] Last Admin: 04/20/18 10:50 Dose: 81 mg Calcitriol (Rocaltrol) 0.5 mcg PO DAILY [facility] Last Admin: 04/20/18 10:51 Dose: 0.5 mcg Carvedilol (Coreg) 25 mg PO BID [facility] Last Admin: 04/20/18 10:50 Dose: 25 mg Ergocalciferol (Drisdol 50,000 Intl Units Cap) 1 cap PO Q7D [facility] Last Admin: 04/17/18 11:08 Dose: 1 cap Finasteride (Proscar) 5 mg PO DAILY [facility] Last Admin: 04/20/18 10:51 Dose: 5 mg Furosemide (Lasix) 40 mg IVP Q12 [facility] Last Admin: 04/20/18 10:51 Dose: 40 mg Heparin Sodium (Porcine) (Heparin) 5,000 units SC Q12 [facility] Last Admin: 04/20/18 10:52 Dose: Not Given Azithromycin 500 mg/ Sodium (Chloride) 250 mls @ 250 mls/hr IVPB DAILY [facility] PRN Reason: Protocol Last Admin: 04/20/18 14:18 Dose: Not Given Ceftriaxone Sodium 1 gm/ (Sodium Chloride) 100 mls @ 50 mls/30 min IVPB Q24H [facility] PRN Reason: Protocol Last Admin: 04/20/18 03:17 Dose: 50 mls/30 min Lorazepam (Ativan) 2 mg IVP Q6H [facility] PRN Reason: Seizure activity Pantoprazole Sodium (Protonix Ec Tab) 40 mg PO DAILY [facility] Last Admin: 04/20/18 10:51 Dose: 40 mg Potassium Chloride (K-Dur 20 Meq Er Tab) 20 meq PO DAILY [facility] Stop: 04/21/18 23:59 Last Admin: 04/20/18 10:50 Dose: 20 meq Rosuvastatin Calcium (Crestor) 5 mg PO HS [facility] Last Admin: 04/19/18 21:39 Dose: 5 mg Sodium Bicarbonate (Sodium Bicarbonate Tab) 1,300 mg PO BID [facility] Last Admin: 04/20/18 10:51 Dose: 1,300 mg Tamsulosin HCl (Flomax) 0.4 mg PO DAILY [facility] Last Admin: 04/20/18 10:50 Dose: 0.4 mg - Labs Labs: 04/17/18 02:06 04/17/18 02:06 PT 10.9 SECONDS (9.7-12.2) 04/17/18 02:06 INR 1.0 04/17/18 02:06 APTT 31 SECONDS (21-34) 04/17/18 02:06 - Constitutional Appears: Well - Head Exam Head Exam: ATRAUMATIC, NORMAL INSPECTION, NORMOCEPHALIC - Eye Exam Eye Exam: EOMI, Normal appearance, PERRL Pupil Exam: NORMAL ACCOMODATION, PERRL - ENT Exam ENT Exam: Mucous Membranes Moist, Normal Exam - Neck Exam Neck Exam: Full ROM, Normal Inspection. absent: Lymphadenopathy - Respiratory Exam Respiratory Exam: Decreased Breath Sounds - Cardiovascular Exam Cardiovascular Exam: REGULAR RHYTHM, +S1, +S2 - GI/Abdominal Exam GI & Abdominal Exam: Soft, Diminished Bowel Sounds - Rectal Exam Rectal Exam: Deferred
[2018-04-21] MEDS: Albuterol-Ipratrop 3 mg / 0.5 (3 ml) UD INH SCH ×4 (01:30→20:28)
--- NOTE | 2018-04-21 08:21 | CARD ---
APPROVED REPORT Date of service: 04/17/2018 EKG Measurement Heart [id number] <Conclusion> Sinus bradycardia Left ventricular hypertrophy with QRS widening T wave abnormality, consider lateral ischemia Abnormal ECG
[2018-04-21] MEDS: Potassium Chloride 20 mEq ER Tab PO SCH ×2 (10:00→10:30)
[2018-04-21] MEDS: Azithromycin 500 MG in Sodium Chloride 0.9% 250 ML IVPB SCH ×2 (10:22→10:42)
[2018-04-21] MEDS: Pantoprazole 40 mg EC Tab PO SCH (10:30)
--- NOTE | 2018-04-21 12:02 | US ---
Date of service: 04/21/2018 PROCEDURE: Ultrasound of the Kidneys HISTORY: abn chest ct COMPARISON: Renal ultrasound dated 06/08/2017. TECHNIQUE: Sonogram of the kidneys. FINDINGS: RIGHT KIDNEY: Measures: 10.4 x 5.1 x 5.4 cm. Upper pole cyst measuring 1.8 x 1.4 x 1.5 cm. Midpole cyst with calcifications lying dependently measuring 3.4 x 2.9 x 3.4 cm. Normal in size, contour and echogenicity. No stone, solid mass lesion or hydronephrosis visualized. LEFT KIDNEY: Measures: 10.1 x 4.6 x 4.9 cm. Upper pole cyst measuring 1.5 x 1.3 x 1.3 cm. Normal in size, contour and echogenicity. No stone, solid mass lesion or hydronephrosis visualized. OTHER FINDINGS: Prevoid urinary bladder volume measures 113.4 cm. No significant postvoid residual volume. Bilateral ureteral jets were not visualized. Prostate volume measures 10.3 mL. IMPRESSION: Stable bilateral renal cysts. Right midpole cyst contains dependent calcifications, grossly unchanged in appearance. Unremarkable ultrasound of the bladder.
--- NOTE | 2018-04-21 14:10 | CP.PCM.PN ---
Subjective - Date & Time of Evaluation Date of Evaluation: 04/21/18 Time of Evaluation: 11:30 - Subjective Subjective: clinically same Objective - Vital Signs/Intake and Output Vital Signs (last 24 hours): Temp Pulse Resp BP Pulse Ox 97.9 F 59 L 20 170/90 H 97 04/21/18 07:25 04/21/18 12:09 04/21/18 07:25 04/21/18 10:32 04/21/18 07:25 Intake and Output: 04/21/18 04/21/18 06:59 18:59 Intake Total 900 Output Total 800 Balance 100 - Medications Medications: Current Medications Albuterol/Ipratropium (Duoneb 3 Mg/0.5 Mg (3 Ml) Ud) 3 ml INH RQ6 [facility] Last Admin: 04/21/18 13:31 Dose: Not Given Allopurinol (Zyloprim) 100 mg PO DAILY [facility] Last Admin: 04/21/18 10:30 Dose: 100 mg Amlodipine Besylate (Norvasc) 10 mg PO Q24H [facility] Last Admin: 04/20/18 18:00 Dose: 10 mg Aspirin (Aspirin Chewable) 81 mg PO DAILY [facility] Last Admin: 04/21/18 10:31 Dose: 81 mg Calcitriol (Rocaltrol) 0.5 mcg PO DAILY [facility] Last Admin: 04/21/18 10:30 Dose: 0.5 mcg Carvedilol (Coreg) 25 mg PO BID [facility] Last Admin: 04/21/18 10:32 Dose: 25 mg Ergocalciferol (Drisdol 50,000 Intl Units Cap) 1 cap PO Q7D [facility] Last Admin: 04/17/18 11:08 Dose: 1 cap Finasteride (Proscar) 5 mg PO DAILY [facility] Last Admin: 04/21/18 10:31 Dose: 5 mg Furosemide (Lasix) 40 mg IVP Q12 [facility] Last Admin: 04/21/18 10:25 Dose: 40 mg Heparin Sodium (Porcine) (Heparin) 5,000 units SC Q12 [facility] Last Admin: 04/21/18 10:37 Dose: Not Given Azithromycin 500 mg/ Sodium (Chloride) 250 mls @ 250 mls/hr IVPB DAILY [facility] PRN Reason: Protocol Last Admin: 04/21/18 10:42 Dose: Not Given Ceftriaxone Sodium 1 gm/ (Sodium Chloride) 100 mls @ 50 mls/30 min IVPB Q24H [facility] PRN Reason: Protocol Last Admin: 04/21/18 03:18 Dose: Not Given Lorazepam (Ativan) 2 mg IVP Q6H PRN PRN Reason: Seizure activity Pantoprazole Sodium (Protonix Ec Tab) 40 mg PO DAILY [facility] Last Admin: 04/21/18 10:30 Dose: 40 mg Potassium Chloride (K-Dur 20 Meq Er Tab) 20 meq PO DAILY [facility] Stop: 04/21/18 23:59 Last Admin: 04/21/18 10:30 Dose: 20 meq Potassium Chloride (K-Dur 20 Meq Er Tab) 20 meq PO DAILY [facility] Last Admin: 04/21/18 10:00 Dose: Not Given Rosuvastatin Calcium (Crestor) 5 mg PO HS [facility] Last Admin: 04/20/18 21:46 Dose: 5 mg Sodium Bicarbonate (Sodium Bicarbonate Tab) 1,300 mg PO BID [facility] Last Admin: 04/21/18 10:30 Dose: 1,300 mg Tamsulosin HCl (Flomax) 0.4 mg PO DAILY [facility] Last Admin: 04/21/18 10:30 Dose: 0.4 mg - Labs Labs: 04/17/18 02:06 04/17/18 02:06 PT 10.9 SECONDS (9.7-12.2) 04/17/18 02:06 INR 1.0 04/17/18 02:06 APTT 31 SECONDS (21-34) 04/17/18 02:06 - Constitutional Appears: Well - Head Exam Head Exam: ATRAUMATIC, NORMAL INSPECTION, NORMOCEPHALIC - Eye Exam Eye Exam: EOMI, Normal appearance, PERRL Pupil Exam: NORMAL ACCOMODATION, PERRL - ENT Exam ENT Exam: Mucous Membranes Moist, Normal Exam - Neck Exam Neck Exam: Full ROM, Normal Inspection. absent: Lymphadenopathy - Respiratory Exam Respiratory Exam: Decreased Breath Sounds - Cardiovascular Exam Cardiovascular Exam: REGULAR RHYTHM, +S1, +S2 - GI/Abdominal Exam GI & Abdominal Exam: Soft, Diminished Bowel Sounds - Rectal Exam Rectal Exam: Deferred Assessment and Plan - Assessment and Plan (Free Text) Plan: Next continue IV Zithromax Continue IV Rocephin Continue Lasix every 12 Follow-up with the consultations neurology consultations Discharge planning Bladder ultrasound which revealed stable bilateral renal cyst Brain MRI no acute abnormality old infarct CT chest Ill-defined questionable vascular cannot continue DVT in the esophagus workup can be done as an outpatient's CT chest is abnormal workup as an outpatient status post bladder ultrasound done
[2018-04-22] MEDS: Albuterol-Ipratrop 3 mg / 0.5 (3 ml) UD INH SCH ×3 (01:55→13:42)
[2018-04-22] MEDS: Potassium Chloride 20 mEq ER Tab PO SCH (09:22)
[2018-04-22] MEDS: Pantoprazole 40 mg EC Tab PO SCH (09:23)
[2018-04-22] MEDS: Azithromycin 500 MG in Sodium Chloride 0.9% 250 ML IVPB SCH (09:24)
--- NOTE | 2018-04-22 12:56 | CP.PCM.PN ---
Subjective - Date & Time of Evaluation Date of Evaluation: 04/22/18 Time of Evaluation: 12:56 - Subjective Subjective: PATIENT SEEN AND EXAMNIED AT THE BEDSIDE CLEAR BY NEURO / REFUSING FUTHER [place] Objective - Vital Signs/Intake and Output Vital Signs (last 24 hours): Temp Pulse Resp BP Pulse Ox 97.6 F 63 20 163/83 H 94 L 04/22/18 08:23 04/22/18 08:23 04/22/18 08:23 04/22/18 09:26 04/22/18 08:23 Intake and Output: 04/22/18 04/22/18 06:59 18:59 Intake Total 240 Output Total 500 Balance -260 - Medications Medications: Current Medications Albuterol/Ipratropium (Duoneb 3 Mg/0.5 Mg (3 Ml) Ud) 3 ml INH RQ6 [facility] Last Admin: 04/22/18 08:29 Dose: Not Given Allopurinol (Zyloprim) 100 mg PO DAILY [facility] Last Admin: 04/22/18 09:23 Dose: 100 mg Amlodipine Besylate (Norvasc) 10 mg PO Q24H [facility] Last Admin: 04/21/18 17:28 Dose: 10 mg Aspirin (Aspirin Chewable) 81 mg PO DAILY [facility] Last Admin: 04/22/18 09:22 Dose: 81 mg Calcitriol (Rocaltrol) 0.5 mcg PO DAILY [facility] Last Admin: 04/22/18 09:26 Dose: 0.5 mcg Carvedilol (Coreg) 25 mg PO BID [facility] Last Admin: 04/22/18 09:26 Dose: 25 mg Ergocalciferol (Drisdol 50,000 Intl Units Cap) 1 cap PO Q7D [facility] Last Admin: 04/17/18 11:08 Dose: 1 cap Finasteride (Proscar) 5 mg PO DAILY [facility] Last Admin: 04/22/18 09:22 Dose: 5 mg Furosemide (Lasix) 40 mg PO DAILY [facility] Last Admin: 04/22/18 09:24 Dose: 40 mg Azithromycin 500 mg/ Sodium (Chloride) 250 mls @ 250 mls/hr IVPB DAILY [facility] PRN Reason: Protocol Last Admin: 04/22/18 09:24 Dose: Not Given Lorazepam (Ativan) 2 mg IVP Q6H PRN PRN Reason: Seizure activity Pantoprazole Sodium (Protonix Ec Tab) 40 mg PO DAILY [facility] Last Admin: 04/22/18 09:23 Dose: 40 mg Potassium Chloride (K-Dur 20 Meq Er Tab) 20 meq PO DAILY [facility] Last Admin: 04/22/18 09:22 Dose: 20 meq Rosuvastatin Calcium (Crestor) 5 mg PO HS [facility] Last Admin: 04/21/18 21:43 Dose: 5 mg Sodium Bicarbonate (Sodium Bicarbonate Tab) 1,300 mg PO BID [facility] Last Admin: 04/22/18 09:23 Dose: 1,300 mg Tamsulosin HCl (Flomax) 0.4 mg PO DAILY [facility] Last Admin: 04/22/18 09:23 Dose: 0.4 mg - Labs Labs: 04/17/18 02:06 04/17/18 02:06 PT 10.9 SECONDS (9.7-12.2) 04/17/18 02:06 INR 1.0 04/17/18 02:06 APTT 31 SECONDS (21-34) 04/17/18 02:06 Assessment and Plan - Assessment and Plan (Free Text) Assessment: FOLLOW UP WITH DR Kiya GRISSOM IN 1-2 WEEK AT HIS OFFICE ---CALL FOR APPOINTMENT CONTINUE HOME MEDICATION ASA ORDER NEW PRESCRIPTION GIVEN AUGMENTIN PO Q12H FOR 5 DAYS ACTIVITY TOLERATED CALL DR Kiya GRISSOM OR GO TO THE EMERGENCY ROOM IF SYMPTOM RETURN OR WORSENING
--- NOTE | 2018-04-22 15:22 | CP.PCM.PN ---
Subjective - Date & Time of Evaluation Date of Evaluation: 04/22/18 Time of Evaluation: 10:45 - Subjective Subjective: clinically same Objective - Vital Signs/Intake and Output Vital Signs (last 24 hours): Temp Pulse Resp BP Pulse Ox 97.6 F 63 20 163/83 H 94 L 04/22/18 08:23 04/22/18 08:23 04/22/18 08:23 04/22/18 09:26 04/22/18 08:23 Intake and Output: 04/22/18 04/22/18 06:59 18:59 Intake Total 240 Output Total 500 Balance -260 - Medications Medications: Current Medications Albuterol/Ipratropium (Duoneb 3 Mg/0.5 Mg (3 Ml) Ud) 3 ml INH RQ6 [facility] Last Admin: 04/22/18 13:42 Dose: Not Given Allopurinol (Zyloprim) 100 mg PO DAILY [facility] Last Admin: 04/22/18 09:23 Dose: 100 mg Amlodipine Besylate (Norvasc) 10 mg PO Q24H [facility] Last Admin: 04/21/18 17:28 Dose: 10 mg Aspirin (Aspirin Chewable) 81 mg PO DAILY [facility] Last Admin: 04/22/18 09:22 Dose: 81 mg Calcitriol (Rocaltrol) 0.5 mcg PO DAILY [facility] Last Admin: 04/22/18 09:26 Dose: 0.5 mcg Carvedilol (Coreg) 25 mg PO BID [facility] Last Admin: 04/22/18 09:26 Dose: 25 mg Ergocalciferol (Drisdol 50,000 Intl Units Cap) 1 cap PO Q7D [facility] Last Admin: 04/17/18 11:08 Dose: 1 cap Finasteride (Proscar) 5 mg PO DAILY [facility] Last Admin: 04/22/18 09:22 Dose: 5 mg Furosemide (Lasix) 40 mg PO DAILY [facility] Last Admin: 04/22/18 09:24 Dose: 40 mg Azithromycin 500 mg/ Sodium (Chloride) 250 mls @ 250 mls/hr IVPB DAILY [facility] PRN Reason: Protocol Last Admin: 04/22/18 09:24 Dose: Not Given Lorazepam (Ativan) 2 mg IVP Q6H PRN PRN Reason: Seizure activity Pantoprazole Sodium (Protonix Ec Tab) 40 mg PO DAILY [facility] Last Admin: 04/22/18 09:23 Dose: 40 mg Potassium Chloride (K-Dur 20 Meq Er Tab) 20 meq PO DAILY [facility] Last Admin: 04/22/18 09:22 Dose: 20 meq Rosuvastatin Calcium (Crestor) 5 mg PO HS [facility] Last Admin: 04/21/18 21:43 Dose: 5 mg Sodium Bicarbonate (Sodium Bicarbonate Tab) 1,300 mg PO BID [facility] Last Admin: 04/22/18 09:23 Dose: 1,300 mg Tamsulosin HCl (Flomax) 0.4 mg PO DAILY [facility] Last Admin: 04/22/18 09:23 Dose: 0.4 mg - Labs Labs: 04/17/18 02:06 04/17/18 02:06 PT 10.9 SECONDS (9.7-12.2) 04/17/18 02:06 INR 1.0 04/17/18 02:06 APTT 31 SECONDS (21-34) 04/17/18 02:06 - Constitutional Appears: Well - Head Exam Head Exam: ATRAUMATIC, NORMAL INSPECTION, NORMOCEPHALIC - Eye Exam Eye Exam: EOMI, Normal appearance, PERRL Pupil Exam: NORMAL ACCOMODATION, PERRL - ENT Exam ENT Exam: Mucous Membranes Moist, Normal Exam - Neck Exam Neck Exam: Full ROM, Normal Inspection. absent: Lymphadenopathy - Respiratory Exam Respiratory Exam: Decreased Breath Sounds - Cardiovascular Exam Cardiovascular Exam: REGULAR RHYTHM, +S1, +S2 - GI/Abdominal Exam GI & Abdominal Exam: Soft, Diminished Bowel Sounds - Rectal Exam Rectal Exam: Deferred
[2018-04-23] MEDS: Albuterol-Ipratrop 3 mg / 0.5 (3 ml) UD INH SCH ×4 (02:43→20:17)
[2018-04-23] MEDS: Pantoprazole 40 mg EC Tab PO SCH (09:31)
[2018-04-23] MEDS: Azithromycin 500 MG in Sodium Chloride 0.9% 250 ML IVPB SCH (09:32)
[2018-04-23] MEDS: Potassium Chloride 20 mEq ER Tab PO SCH (09:32)
--- NOTE | 2018-04-23 16:59 | CP.PCM.PN ---
Subjective - Date & Time of Evaluation Date of Evaluation: 04/23/18 Time of Evaluation: 10:15 - Subjective Subjective: clinically same Objective - Vital Signs/Intake and Output Vital Signs (last 24 hours): Temp Pulse Resp BP Pulse Ox 98.2 F 61 20 160/79 H 97 04/23/18 15:00 04/23/18 15:00 04/23/18 15:00 04/23/18 15:00 04/23/18 15:00 Intake and Output: 04/23/18 04/23/18 06:59 18:59 Intake Total 240 Output Total 1500 Balance -1260 - Medications Medications: Current Medications Albuterol/Ipratropium (Duoneb 3 Mg/0.5 Mg (3 Ml) Ud) 3 ml INH RQ6 [facility] Last Admin: 04/23/18 13:33 Dose: Not Given Allopurinol (Zyloprim) 100 mg PO DAILY [facility] Last Admin: 04/23/18 09:31 Dose: 100 mg Amlodipine Besylate (Norvasc) 10 mg PO Q24H [facility] Last Admin: 04/22/18 17:02 Dose: 10 mg Aspirin (Aspirin Chewable) 81 mg PO DAILY [facility] Last Admin: 04/23/18 09:31 Dose: 81 mg Calcitriol (Rocaltrol) 0.5 mcg PO DAILY [facility] Last Admin: 04/23/18 09:31 Dose: 0.5 mcg Carvedilol (Coreg) 25 mg PO BID [facility] Last Admin: 04/23/18 09:31 Dose: 25 mg Ergocalciferol (Drisdol 50,000 Intl Units Cap) 1 cap PO Q7D [facility] Last Admin: 04/17/18 11:08 Dose: 1 cap Finasteride (Proscar) 5 mg PO DAILY [facility] Last Admin: 04/23/18 09:31 Dose: 5 mg Furosemide (Lasix) 40 mg PO DAILY [facility] Last Admin: 04/23/18 09:32 Dose: 40 mg Azithromycin 500 mg/ Sodium (Chloride) 250 mls @ 250 mls/hr IVPB DAILY [facility] PRN Reason: Protocol Last Admin: 04/23/18 09:32 Dose: Not Given Lorazepam (Ativan) 2 mg IVP Q6H PRN PRN Reason: Seizure activity Pantoprazole Sodium (Protonix Ec Tab) 40 mg PO DAILY [facility] Last Admin: 04/23/18 09:31 Dose: 40 mg Potassium Chloride (K-Dur 20 Meq Er Tab) 20 meq PO DAILY [facility] Last Admin: 04/23/18 09:32 Dose: 20 meq Rosuvastatin Calcium (Crestor) 5 mg PO HS [facility] Last Admin: 04/22/18 21:05 Dose: 5 mg Sodium Bicarbonate (Sodium Bicarbonate Tab) 1,300 mg PO BID [facility] Last Admin: 04/23/18 09:31 Dose: 1,300 mg Tamsulosin HCl (Flomax) 0.4 mg PO DAILY [facility] Last Admin: 04/23/18 09:31 Dose: 0.4 mg - Labs Labs: 04/17/18 02:06 04/17/18 02:06 PT 10.9 SECONDS (9.7-12.2) 04/17/18 02:06 INR 1.0 04/17/18 02:06 APTT 31 SECONDS (21-34) 04/17/18 02:06 - Constitutional Appears: Well - Head Exam Head Exam: ATRAUMATIC, NORMAL INSPECTION, NORMOCEPHALIC - Eye Exam Eye Exam: EOMI, Normal appearance, PERRL Pupil Exam: NORMAL ACCOMODATION, PERRL - ENT Exam ENT Exam: Mucous Membranes Moist, Normal Exam - Neck Exam Neck Exam: Full ROM, Normal Inspection. absent: Lymphadenopathy - Respiratory Exam Respiratory Exam: Decreased Breath Sounds - Cardiovascular Exam Cardiovascular Exam: REGULAR RHYTHM, +S1, +S2 - GI/Abdominal Exam GI & Abdominal Exam: Soft, Diminished Bowel Sounds - Rectal Exam Rectal Exam: Deferred
[2018-04-24] MEDS: Albuterol-Ipratrop 3 mg / 0.5 (3 ml) UD INH SCH ×3 (01:56→19:20)
[2018-04-24] MEDS: Pantoprazole 40 mg EC Tab PO SCH (09:26)
[2018-04-24] MEDS: Potassium Chloride 20 mEq ER Tab PO SCH (09:27)
[2018-04-24] MEDS: Ergocalciferol 50,000 Intl Units Cap PO SCH (11:48)
--- NOTE | 2018-04-24 20:30 | CP.PCM.PN ---
Subjective - Date & Time of Evaluation Date of Evaluation: 04/24/18 Time of Evaluation: 09:30 - Subjective Subjective: clinically same Objective - Vital Signs/Intake and Output Vital Signs (last 24 hours): Temp Pulse Resp BP Pulse Ox 97.8 F 64 20 172/82 H 97 04/24/18 15:00 04/24/18 15:00 04/24/18 15:00 04/24/18 17:59 04/24/18 15:00 Intake and Output: 04/24/18 04/25/18 18:59 06:59 Intake Total 800 Balance 800 - Medications Medications: Current Medications Albuterol/Ipratropium (Duoneb 3 Mg/0.5 Mg (3 Ml) Ud) 3 ml INH RQ6 [facility] Last Admin: 04/24/18 19:20 Dose: Not Given Allopurinol (Zyloprim) 100 mg PO DAILY [facility] Last Admin: 04/24/18 09:27 Dose: 100 mg Amlodipine Besylate (Norvasc) 10 mg PO Q24H [facility] Last Admin: 04/24/18 17:59 Dose: 10 mg Aspirin (Aspirin Chewable) 81 mg PO DAILY [facility] Last Admin: 04/24/18 09:27 Dose: 81 mg Azithromycin (Zithromax) 500 mg PO DAILY [facility] Last Admin: 04/24/18 09:26 Dose: 500 mg Calcitriol (Rocaltrol) 0.5 mcg PO DAILY [facility] Last Admin: 04/24/18 09:27 Dose: 0.5 mcg Carvedilol (Coreg) 25 mg PO BID [facility] Last Admin: 04/24/18 17:59 Dose: 25 mg Ergocalciferol (Drisdol 50,000 Intl Units Cap) 1 cap PO Q7D [facility] Last Admin: 04/24/18 11:48 Dose: Not Given Finasteride (Proscar) 5 mg PO DAILY [facility] Last Admin: 04/24/18 09:27 Dose: 5 mg Furosemide (Lasix) 40 mg PO DAILY [facility] Last Admin: 04/24/18 09:27 Dose: 40 mg Lorazepam (Ativan) 2 mg IVP Q6H PRN PRN Reason: Seizure activity Pantoprazole Sodium (Protonix Ec Tab) 40 mg PO DAILY [facility] Last Admin: 04/24/18 09:26 Dose: 40 mg Potassium Chloride (K-Dur 20 Meq Er Tab) 20 meq PO DAILY [facility] Last Admin: 04/24/18 09:27 Dose: 20 meq Rosuvastatin Calcium (Crestor) 5 mg PO HS [facility] Last Admin: 04/23/18 21:08 Dose: 5 mg Sodium Bicarbonate (Sodium Bicarbonate Tab) 1,300 mg PO BID [facility] Last Admin: 04/24/18 18:00 Dose: 1,300 mg Tamsulosin HCl (Flomax) 0.4 mg PO DAILY [facility] Last Admin: 04/24/18 09:27 Dose: 0.4 mg - Labs Labs: 04/17/18 02:06 04/17/18 02:06 PT 10.9 SECONDS (9.7-12.2) 04/17/18 02:06 INR 1.0 04/17/18 02:06 APTT 31 SECONDS (21-34) 04/17/18 02:06
[2018-04-25] MEDS: Albuterol-Ipratrop 3 mg / 0.5 (3 ml) UD INH SCH ×4 (03:44→19:43)
[2018-04-25] MEDS: Pantoprazole 40 mg EC Tab PO SCH (09:02)
[2018-04-25] MEDS: Potassium Chloride 20 mEq ER Tab PO SCH (09:02)
--- NOTE | 2018-04-25 16:08 | CP.PCM.PN ---
Subjective - Date & Time of Evaluation Date of Evaluation: 04/25/18 Time of Evaluation: 09:15 - Subjective Subjective: clinically same Objective - Vital Signs/Intake and Output Vital Signs (last 24 hours): Temp Pulse Resp BP Pulse Ox 97.8 F 65 20 159/84 H 96 04/25/18 07:41 04/25/18 07:41 04/25/18 07:41 04/25/18 09:03 04/25/18 07:41 Intake and Output: 04/25/18 04/25/18 06:59 18:59 Intake Total 500 800 Output Total 400 600 Balance 100 200 - Medications Medications: Current Medications Albuterol/Ipratropium (Duoneb 3 Mg/0.5 Mg (3 Ml) Ud) 3 ml INH RQ6 [facility] Last Admin: 04/25/18 07:58 Dose: Not Given Allopurinol (Zyloprim) 100 mg PO DAILY [facility] Last Admin: 04/25/18 09:02 Dose: 100 mg Amlodipine Besylate (Norvasc) 10 mg PO Q24H [facility] Last Admin: 04/24/18 17:59 Dose: 10 mg Aspirin (Aspirin Chewable) 81 mg PO DAILY [facility] Last Admin: 04/25/18 09:02 Dose: 81 mg Azithromycin (Zithromax) 500 mg PO DAILY [facility] Last Admin: 04/25/18 09:06 Dose: 500 mg Calcitriol (Rocaltrol) 0.5 mcg PO DAILY [facility] Last Admin: 04/25/18 09:05 Dose: 0.5 mcg Carvedilol (Coreg) 25 mg PO BID [facility] Last Admin: 04/25/18 09:03 Dose: 25 mg Ergocalciferol (Drisdol 50,000 Intl Units Cap) 1 cap PO Q7D [facility] Last Admin: 04/24/18 11:48 Dose: Not Given Finasteride (Proscar) 5 mg PO DAILY [facility] Last Admin: 04/25/18 09:02 Dose: 5 mg Furosemide (Lasix) 40 mg PO DAILY [facility] Last Admin: 04/25/18 09:03 Dose: 40 mg Lorazepam (Ativan) 2 mg IVP Q6H PRN PRN Reason: Seizure activity Pantoprazole Sodium (Protonix Ec Tab) 40 mg PO DAILY [facility] Last Admin: 04/25/18 09:02 Dose: 40 mg Potassium Chloride (K-Dur 20 Meq Er Tab) 20 meq PO DAILY [facility] Last Admin: 04/25/18 09:02 Dose: 20 meq Rosuvastatin Calcium (Crestor) 5 mg PO HS [facility] Last Admin: 04/24/18 21:18 Dose: 5 mg Sodium Bicarbonate (Sodium Bicarbonate Tab) 1,300 mg PO BID [facility] Last Admin: 04/25/18 09:02 Dose: 1,300 mg Tamsulosin HCl (Flomax) 0.4 mg PO DAILY [facility] Last Admin: 04/25/18 09:02 Dose: 0.4 mg - Labs Labs: 04/17/18 02:06 04/17/18 02:06 PT 10.9 SECONDS (9.7-12.2) 04/17/18 02:06 INR 1.0 04/17/18 02:06 APTT 31 SECONDS (21-34) 04/17/18 02:06
--- NOTE | 2018-04-25 18:52 | PCM.PSYCH ---
Initial Psychiatric Evaluation - Initial Psychiatric Evaluation Type of Admission: Voluntary Legal Status: Capacity History of Present Illness and Precipitating Events: He is cleared for d/c full note to follow but case is discussed Current Medications: Active Medications Generic Name Dose Route Start Last Admin Trade Name Freq PRN Reason Stop Dose Admin Albuterol/Ipratropium 3 ml 04/18/18 14:00 04/25/18 07:58 Duoneb 3 Mg/0.5 Mg (3 Ml) Ud INH Not Given RQ6 [facility] Allopurinol 100 mg 04/17/18 10:00 04/25/18 09:02 Zyloprim PO 100 mg DAILY [facility] Administration Amlodipine Besylate 10 mg 04/17/18 18:00 04/25/18 17:30 Norvasc PO 10 mg Q24H [facility] Administration Aspirin 81 mg 04/17/18 10:00 04/25/18 09:02 Aspirin Chewable PO 81 mg DAILY [facility] Administration Azithromycin 500 mg 04/24/18 10:00 04/25/18 09:06 Zithromax PO 500 mg DAILY [facility] Administration Calcitriol 0.5 mcg 04/17/18 10:00 04/25/18 09:05 Rocaltrol PO 0.5 mcg DAILY [facility] Administration Carvedilol 25 mg 04/17/18 10:00 04/25/18 17:29 Coreg PO 25 mg BID [facility] Administration Ergocalciferol 1 cap 04/17/18 10:00 04/24/18 11:48 Drisdol 50,000 Intl Units Cap PO Not Given Q7D [facility] Finasteride 5 mg 04/17/18 10:00 04/25/18 09:02 Proscar PO 5 mg DAILY [facility] Administration Furosemide 40 mg 04/22/18 10:00 04/25/18 09:03 Lasix PO 40 mg DAILY [facility] Administration Lorazepam 2 mg 04/18/18 18:05 Ativan IVP Q6H PRN Seizure activity Pantoprazole Sodium 40 mg 04/17/18 10:00 04/25/18 09:02 Protonix Ec Tab PO 40 mg DAILY [facility] Administration Potassium Chloride 20 meq 04/21/18 10:00 04/25/18 09:02 K-Dur 20 Meq Er Tab PO 20 meq DAILY [facility] Administration Rosuvastatin Calcium 5 mg 04/17/18 22:00 04/24/18 21:18 Crestor PO 5 mg HS [facility] Administration Sodium Bicarbonate 1,300 mg 04/17/18 10:00 04/25/18 17:27 Sodium Bicarbonate Tab PO 1,300 mg BID [facility] Administration Tamsulosin HCl 0.4 mg 04/17/18 10:00 04/25/18 09:02 Flomax PO 0.4 mg DAILY [facility] Administration Past Psychiatric History - Past Psychiatric History Pertinent Medical Hx (Current Medical&Sleep Prob, Allergies): Allergies Allergy/AdvReac Type Severity Reaction Status Date / Time No Known Allergies Allergy Verified 04/17/18 01:49 Aspirin [Aspirin Chewable] 81 mg PO DAILY 03/08/18 Atorvastatin [Lipitor] 10 mg PO DAILY 03/08/18 Carvedilol [Coreg] 25 mg PO BID 03/08/18 Allopurinol [Zyloprim] 100 mg PO DAILY #30 tab 03/12/18 Calcitriol [Rocaltrol] 0.5 mcg PO DAILY sgl 03/12/18 Ergocalciferol [Drisdol 50,000 Intl Units Cap] 1 cap PO Q7D cap 03/12/18 Finasteride [Proscar] 5 mg PO DAILY #30 tab 03/12/18 Furosemide [Lasix] 20 mg PO DAILY #30 tab 03/12/18 Sodium Bicarbonate Tab 1,300 mg PO BID #120 tab 03/12/18 Tamsulosin [Flomax] 0.4 mg PO DAILY #30 cap 03/12/18 amLODIPine [Norvasc] 10 mg PO DAILY tab 03/12/18 Amoxicillin/Potassium Clav [Augmentin 500 mg-125 mg] 1 tab PO Q12H 5 Days tab 04/22/18
[2018-04-26] MEDS: Albuterol-Ipratrop 3 mg / 0.5 (3 ml) UD INH SCH ×3 (02:30→13:20)
[2018-04-26 08:01] VITALS: O2SAT 97
[2018-04-26] MEDS: Pantoprazole 40 mg EC Tab PO SCH (09:07)
[2018-04-26] MEDS: Potassium Chloride 20 mEq ER Tab PO SCH (09:08)
--- NOTE | 2018-04-26 12:16 | CP.PCM.PN ---
Subjective - Date & Time of Evaluation Date of Evaluation: 04/26/18 Time of Evaluation: 08:30 - Subjective Subjective: clinically same Objective - Vital Signs/Intake and Output Vital Signs (last 24 hours): Temp Pulse Resp BP Pulse Ox 98.1 F 65 20 160/75 H 97 04/26/18 08:00 04/26/18 09:06 04/26/18 08:00 04/26/18 09:07 04/26/18 08:00 Intake and Output: 04/26/18 04/26/18 06:59 18:59 Intake Total 620 Output Total 400 Balance 220 - Medications Medications: Current Medications Albuterol/Ipratropium (Duoneb 3 Mg/0.5 Mg (3 Ml) Ud) 3 ml INH RQ6 [facility] Last Admin: 04/26/18 07:57 Dose: Not Given Allopurinol (Zyloprim) 100 mg PO DAILY [facility] Last Admin: 04/26/18 09:07 Dose: 100 mg Amlodipine Besylate (Norvasc) 10 mg PO Q24H [facility] Last Admin: 04/25/18 17:30 Dose: 10 mg Aspirin (Aspirin Chewable) 81 mg PO DAILY [facility] Last Admin: 04/26/18 09:07 Dose: 81 mg Azithromycin (Zithromax) 500 mg PO DAILY [facility] Last Admin: 04/26/18 09:07 Dose: 500 mg Calcitriol (Rocaltrol) 0.5 mcg PO DAILY [facility] Last Admin: 04/26/18 09:07 Dose: 0.5 mcg Carvedilol (Coreg) 25 mg PO BID [facility] Last Admin: 04/26/18 09:06 Dose: 25 mg Ergocalciferol (Drisdol 50,000 Intl Units Cap) 1 cap PO Q7D [facility] Last Admin: 04/24/18 11:48 Dose: Not Given Finasteride (Proscar) 5 mg PO DAILY [facility] Last Admin: 04/26/18 09:07 Dose: 5 mg Furosemide (Lasix) 40 mg PO DAILY [facility] Last Admin: 04/26/18 09:07 Dose: 40 mg Lorazepam (Ativan) 2 mg IVP Q6H PRN PRN Reason: Seizure activity Pantoprazole Sodium (Protonix Ec Tab) 40 mg PO DAILY [facility] Last Admin: 04/26/18 09:07 Dose: 40 mg Potassium Chloride (K-Dur 20 Meq Er Tab) 20 meq PO DAILY [facility] Last Admin: 04/26/18 09:08 Dose: 20 meq Rosuvastatin Calcium (Crestor) 5 mg PO HS [facility] Last Admin: 04/25/18 21:15 Dose: 5 mg Sodium Bicarbonate (Sodium Bicarbonate Tab) 1,300 mg PO BID [facility] Last Admin: 04/26/18 09:08 Dose: 1,300 mg Tamsulosin HCl (Flomax) 0.4 mg PO DAILY [facility] Last Admin: 04/26/18 09:08 Dose: 0.4 mg - Labs Labs: 04/17/18 02:06 04/17/18 02:06 PT 10.9 SECONDS (9.7-12.2) 04/17/18 02:06 INR 1.0 04/17/18 02:06 APTT 31 SECONDS (21-34) 04/17/18 02:06
[2018-04-26 15:55] VITALS: BP 163/79; PULSE 62; TEMP 98
== END 2018-04-26 17:19 | disposition home or self-care (01) | DRG 637 ==
LOC: C.ER 01:37 → C.9E 03:40 → C.5S 13:04
PROVIDERS: ADMIT Internal Medicine Nephrology; ATTEND Internal Medicine Nephrology
DX: E11.649 Type 2 diabetes mellitus with hypoglycemia without coma (principal); I50.33 Acute on chronic diastolic (congestive) heart failure; I13.2 Hypertensive heart and chronic kidney disease with heart failure and with stage 5 chronic kidney disease, or end stage renal disease; I69.351 Hemiplegia and hemiparesis following cerebral infarction affecting right dominant side; R56.9 Unspecified convulsions; N18.5 Chronic kidney disease, stage 5; E11.22 Type 2 diabetes mellitus with diabetic chronic kidney disease; E78.00 Pure hypercholesterolemia, unspecified; Z87.442 Personal history of urinary calculi; Z87.891 Personal history of nicotine dependence

== ENCOUNTER 2018-05-04 06:56 | Inpatient (IN) | payer MEDICARE ==
[2018-05-04 06:56] VITALS: BMI 32.4
--- NOTE | 2018-05-04 07:21 | C.PDOC ---
History Of Present Illness 62 yr old male w/ hx of CVA, HTN, CKD, hx of hypoglycemia 2/2 glimiperide p/w AMS + hypoglycemia. Per EMS pt was noted to be lethargic and having shaking movements at home earlier today. Per pt he was not sure whether or not he notes that he was supposed to stop taking his glimipedride and is unsure whether or not he was given it today. He notes that he is pretty sure he was given his glimperide today at 0300 and that he did not eat before. No fever, chills or night sweats. No chest pain or shortness of breath. No neck stiffness of meningeal signs No abdominal pain or diarrhea No dark or bloody stool No leg swelling or worsening TABOR No rashes No other complaints Time Seen by Provider: 05/04/18 07:10 Chief Complaint (Nursing): Altered Mental Status History Per: Patient Past Medical History Vital Signs: Last Vital Signs Temp 97.6 F 05/04/18 07:00 Pulse 102 H 05/04/18 07:00 Resp 16 05/04/18 07:00 BP 159/112 H 05/04/18 07:00 Pulse Ox 96 05/04/18 07:00 - Medical History PMH: CHF, CVA (x3), Diabetes, HTN, Kidney Stones, Chronic Kidney Disease, Seizures Family History: States: Unknown Family Hx - Social History Hx Alcohol Use: Yes Hx Substance Use: No - Immunization History Hx Tetanus Toxoid Vaccination: No Hx Influenza Vaccination: No Hx Pneumococcal Vaccination: No Review Of Systems Constitutional: Negative for: Fever Eyes: Negative for: Pain, Conjunctivae Inflammation ENT: Negative for: Ear Pain Cardiovascular: Negative for: Chest Pain Respiratory: Negative for: Cough Gastrointestinal: Negative for: Nausea, Vomiting Genitourinary: Negative for: Dysuria Musculoskeletal: Negative for: Neck Pain Skin: Negative for: Rash, Lesions Neurological: Negative for: Weakness Psych: Negative for: Anxiety Physical Exam - Physical Exam Appears: Well, No Acute Distress Skin: Normal Color, Warm, Dry Eye(s): bilateral: Normal Inspection, PERRL, EOMI Ear(s): Bilateral: Normal Nose: Normal Oral Mucosa: Moist Tongue: Normal Appearing Lips: Normal Appearing Throat: Normal Neck: Normal, Supple (no meningeal signs), Other Chest: Symmetrical, No Deformity Cardiovascular: Rhythm Regular Respiratory: Normal Breath Sounds, No Decreased Breath Sounds, No Accessory Muscle Use Gastrointestinal/Abdominal: Normal Exam, Soft, No Tenderness Back: Normal Inspection Extremity: Normal ROM, Pedal Edema (1+) Neurological/Psych: Oriented x3, Normal Speech, Normal Cognition, No Cerebellar Signs ED Course And Treatment - Laboratory Results Result Diagrams: 05/04/18 07:20 05/04/18 08:05 O2 Sat by Pulse Oximetry: 96 Medical Decision Making Medical Decision Makin yr old M w/ hx of HTN, CVA w/ R sided deficits and dysarthria, CKD not on HD p/w seizure like activity, momentary AMS and hypoglycemia. ?2/2 glimperide for which he was supposed to d/c. No meningeal signs. Mentation improved w/ D25 by EMS. Given co-morbidities, hx of recent PNA will seek septic w/u and hx of cva will seek CTH. Pending imaging and labs 0951 labs resulted: BNP elevated w/ CR ~6, previously 4. Worsening CKD c/w ALICE. Pt was planned for dialysis in the past but pt signed out AMA CT head unchanged from previous lungs clear w/ good o2 sat, b/l edema 1+. No emergent fluid overload requiring bipap HD seymour. Pt ate well, glucose remains ~100, without AMS. Recurrent glimiperide ingestion w/ resultant Hypoglycemia: likely social issue. Difficulty reaching pts mom at home and pts friends. Pt in NAD. Appreciate consult w/ Dr. Kiya Massey: to admit to his service. Pending XR. Disposition - Disposition Disposition Time: 09:55 Condition: GOOD Forms: [facility] (Faroese) - Clinical Impression Clinical Impression: Hypoglycemia, ALICE (acute kidney injury), CKD (chronic kidney disease), Elevated brain natriuretic peptide (BNP) level
[2018-05-04 07:27] LABS: BASO # 0.1 K/uL (0.0-0.2); BASO % 0.9 % (0.0-2.0); EOS # 0.4 K/uL (0.0-0.7); EOS % 5.7 % (0.0-4.0); HEMOGLOBIN 11.4 g/dL (12.0-18.0); LYMPH # 0.8 K/uL (1.0-4.3); LYMPH % 10.9 % (20.0-40.0); MEAN CELL VOLUME 90.5 fL (80.0-94.0); MEAN CORPUSCULAR HEMOGLOBIN 31.1 pg (27.0-31.0); MEAN CORPUSCULAR HGB CONC 34.4 g/dL (33.0-37.0); MEAN PLATELET VOLUME 7.8 fL (7.2-11.7); MONO # 0.5 K/uL (0.0-0.8); MONO % 6.6 % (0.0-10.0); NEUT # 5.4 K/uL (1.8-7.0); NEUT % 75.9 % (50.0-75.0); RBC 3.67 Mil/uL (4.40-5.90); RED CELL DISTRIBUTION WIDTH 14.2 % (11.5-14.5); WHITE BLOOD COUNT 7.1 K/uL (4.8-10.8)
[2018-05-04 07:37] LABS: VENOUS BLOOD GAS BASE EXCESS -6.8 mmol/L (0.0-2.0); VENOUS BLOOD GAS PCO2 42 mmHg (40-60); VENOUS BLOOD GAS PO2 32 mm/Hg (30-55); VENOUS BLOOD PH 7.28 (7.32-7.43)
[2018-05-04 08:29] LABS: ALB/GLOB RATIO 1.3 (1.0-2.1); ALBUMIN 4.6 g/dL (3.5-5.0); CALCIUM 9.4 mg/dl (8.6-10.4)
[2018-05-04 08:39] LABS: TROPONIN I 0.038 ng/mL (0.00-0.120)
[2018-05-04 09:06] LABS: URINE BACTERIA RARE (<OCC); URINE BILIRUBIN NEGATIVE (NEGATIVE); URINE BLOOD 1+ (NEGATIVE); URINE CLARITY Clear (Clear); URINE COLOR Straw (YELLOW); URINE GLUCOSE (UA) 1+ mg/dL (Normal); URINE LEUKOCYTE ESTERASE NEG Leu/uL (Negative); URINE PROTEIN 2+ mg/dL (NEGATIVE); URINE UROBILINOGEN NORMAL mg/dL (0.2-1.0)
--- NOTE | 2018-05-04 09:35 | CT ---
Date of service: 05/04/2018 PROCEDURE: CT HEAD WITHOUT CONTRAST. HISTORY: History of cva COMPARISON: None comparison made with CT scan brain 04/17/2018. TECHNIQUE: Axial computed tomography images were obtained through the head/brain without intravenous contrast. Radiation dose: Total exam DLP = 971.27 mGy-cm. This CT exam was performed using one or more of the following dose reduction techniques: Automated exposure control, adjustment of the mA and/or kV according to patient size, and/or use of iterative reconstruction technique. FINDINGS: HEMORRHAGE: No acute parenchymal, subarachnoid or extra-axial hemorrhage. BRAIN: Moderate to significant diffuse and confluent chronic white matter ischemic changes again seen extending peripherally into the deep and subcortical white matter both cerebral hemispheres. Appearing more discrete chronic left frontal lobe and right anterior basal ganglia infarcts are again seen.. Note that the possibility of a small hyperacute infarct cannot be completely excluded. No obvious parenchymal nor extra-axial mass or collection seen on this noncontrast study.. Moderate generalized volume loss Vascular calcifications both carotid siphons VENTRICLES: No obstructive hydrocephalus. CALVARIUM: No acute calvarial fractures. Note made of what probably represents scalp scarring left posterior occipito parietal region. PARANASAL SINUSES: Minor mucosal thickening noted within right maxillary antrum as well as several ethmoid air cells MASTOID AIR CELLS: Unremarkable as visualized. No inflammatory changes. OTHER FINDINGS: Old fracture left lamina papyracea unchanged IMPRESSION: No acute intracranial hemorrhage. Moderate to fairly significant chronic white matter ischemic changes with more discrete infarcts left frontal and right anterior basal ganglia.
[2018-05-04] MEDS ORDERED: Dextrose 50% SYRINGE Inj (50 ml) ONE (11:26)
[2018-05-04] MEDS ORDERED: Dextrose 50% SYRINGE Inj (50 ml) IV STA (11:26)
--- NOTE | 2018-05-04 13:15 | CP.PCM.HP ---
Past Patient History - Infectious Disease Hx of Infectious Diseases: None - Past Medical History & Family History Past Medical History?: Yes - Past Social History Smoking Status: Former Smoker - CARDIAC Hx Congestive Heart Failure: Yes Hx Hypertension: Yes - PULMONARY Hx Respiratory Disorders: No - NEUROLOGICAL Hx Seizures: Yes - HEENT Hx HEENT Problems: No - RENAL Hx Chronic Kidney Disease: Yes Hx Kidney Stones: Yes - ENDOCRINE/METABOLIC Hx Endocrine Disorders: Yes Hx Diabetes Mellitus Type 2: Yes - HEMATOLOGICAL/ONCOLOGICAL Hx Blood Disorders: No Hx Blood Transfusions: No - INTEGUMENTARY Hx Dermatological Problems: No - MUSCULOSKELETAL/RHEUMATOLOGICAL Hx Falls: No - GASTROINTESTINAL Hx Gastrointestinal Disorders: No - GENITOURINARY/GYNECOLOGICAL Hx Genitourinary Disorders: No - PSYCHIATRIC Hx Substance Use: No - SURGICAL HISTORY Hx Surgeries: No - ANESTHESIA Hx Anesthesia: No Hx Anesthesia Reactions: No Hx Malignant Hyperthermia: No Meds Allergies/Adverse Reactions: Allergies Allergy/AdvReac Type Severity Reaction Status Date / Time No Known Allergies Allergy Verified 05/04/18 07:09 Results - Vital Signs Recent Vital Signs: Last Vital Signs Temp 98.1 F 05/04/18 12:49 Pulse 86 05/04/18 12:49 Resp 20 05/04/18 12:49 BP 197/96 H 05/04/18 12:49 Pulse Ox 99 05/04/18 12:49 - Labs Result Diagrams: 05/04/18 07:20 05/04/18 08:05 Labs: Laboratory Results - last 24 hr 05/04/18 05/04/18 05/04/18 06:59 07:20 07:33 WBC 7.1 RBC 3.67 L Hgb 11.4 L Hct 33.2 L MCV 90.5 MCH 31.1 H MCHC 34.4 RDW 14.2 Plt Count 242 MPV 7.8 Neut % (Auto) 75.9 H Lymph % (Auto) 10.9 L [place] % (Auto) 6.6 Eos % (Auto) 5.7 H Baso % (Auto) 0.9 Neut # (Auto) 5.4 Lymph # (Auto) 0.8 L [place] # (Auto) 0.5 Eos # (Auto) 0.4 Baso # (Auto) 0.1 pO2 32 VBG pH 7.28 L VBG pCO2 42 VBG HCO3 18.4 VBG Total CO2 21.0 L VBG Base Excess -6.8 L VBG Potassium 5.7 H Sodium 138.0 Chloride 108.0 H Glucose 113 H Lactate 1.2 Potassium Carbon Dioxide Anion Gap BUN Creatinine Est GFR ( Amer) Est GFR (Non-Af Amer) POC Glucose (mg/dL) 106 Random Glucose Calcium Magnesium Total Bilirubin AST ALT Alkaline Phosphatase Total Creatine Kinase Troponin I NT-Pro-B Natriuret Pep Total Protein Albumin Globulin Albumin/Globulin Ratio Lipase TSH 3rd Generation Venous Blood Potassium 5.7 H Urine Color Urine Clarity Urine pH Ur Specific [place] Urine Protein Urine Glucose (UA) Urine Ketones Urine Blood Urine Nitrate Urine Bilirubin Urine Urobilinogen Ur Leukocyte Esterase Urine WBC (Auto) Urine Bacteria 05/04/18 05/04/18 05/04/18 08:05 08:05 08:57 WBC RBC Hgb Hct MCV MCH MCHC RDW Plt Count MPV Neut % (Auto) Lymph % (Auto) [place] % (Auto) Eos % (Auto) Baso % (Auto) Neut # (Auto) Lymph # (Auto) [place] # (Auto) Eos # (Auto) Baso # (Auto) pO2 VBG pH VBG pCO2 VBG HCO3 VBG Total CO2 VBG Base Excess VBG Potassium Sodium 141 Chloride 104 Glucose Lactate Potassium 3.7 Carbon Dioxide 20 L Anion Gap 21 H BUN 66 H Creatinine 5.9 H Est GFR ( Amer) 12 Est GFR (Non-Af Amer) 10 POC Glucose (mg/dL) 95 Random Glucose 84 Calcium 9.4 Magnesium 2.2 Total Bilirubin 0.7 AST 21 ALT 24 Alkaline Phosphatase 99 Total Creatine Kinase 99 Troponin I 0.0380 NT-Pro-B Natriuret Pep 1690 H Total Protein 8.3 Albumin 4.6 Globulin 3.7 Albumin/Globulin Ratio 1.3 Lipase 205 TSH 3rd Generation 1.37 Venous Blood Potassium Urine Color Urine Clarity Urine pH Ur Specific [place] Urine Protein Urine Glucose (UA) Urine Ketones Urine Blood Urine Nitrate Urine Bilirubin Urine Urobilinogen Ur Leukocyte Esterase Urine WBC (Auto) Urine Bacteria 05/04/18 05/04/18 05/04/18 08:59 11:21 11:23 WBC RBC Hgb Hct MCV MCH MCHC RDW Plt Count MPV Neut % (Auto) Lymph % (Auto) [place] % (Auto) Eos % (Auto) Baso % (Auto) Neut # (Auto) Lymph # (Auto) [place] # (Auto) Eos # (Auto) Baso # (Auto) pO2 VBG pH VBG pCO2 VBG HCO3 VBG Total CO2 VBG Base Excess VBG Potassium Sodium Chloride Glucose Lactate Potassium Carbon Dioxide Anion Gap BUN Creatinine Est GFR ( Amer) Est GFR (Non-Af Amer) POC Glucose (mg/dL) 33 L* 37 L* Random Glucose Calcium Magnesium Total Bilirubin AST ALT Alkaline Phosphatase Total Creatine Kinase Troponin I NT-Pro-B Natriuret Pep Total Protein Albumin Globulin Albumin/Globulin Ratio Lipase TSH 3rd Generation Venous Blood Potassium Urine Color Straw Urine Clarity Clear Urine pH 6.0 Ur Specific [place] 1.008 Urine Protein 2+ H Urine Glucose (UA) 1+ H Urine Ketones Negative Urine Blood 1+ H Urine Nitrate Negative Urine Bilirubin Negative Urine Urobilinogen Normal Ur Leukocyte Esterase Neg Urine WBC (Auto) < 1 Urine Bacteria Rare 05/04/18 12:02 WBC RBC Hgb Hct MCV MCH MCHC RDW Plt Count MPV Neut % (Auto) Lymph % (Auto) [place] % (Auto) Eos % (Auto) Baso % (Auto) Neut # (Auto) Lymph # (Auto) [place] # (Auto) Eos # (Auto) Baso # (Auto) pO2 VBG pH VBG pCO2 VBG HCO3 VBG Total CO2 VBG Base Excess VBG Potassium Sodium Chloride Glucose Lactate Potassium Carbon Dioxide Anion Gap BUN Creatinine Est GFR ( Amer) Est GFR (Non-Af Amer) POC Glucose (mg/dL) 110 Random Glucose Calcium Magnesium Total Bilirubin AST ALT Alkaline Phosphatase Total Creatine Kinase Troponin I NT-Pro-B Natriuret Pep Total Protein Albumin Globulin Albumin/Globulin Ratio Lipase TSH 3rd Generation Venous Blood Potassium Urine Color Urine Clarity Urine pH Ur Specific [place] Urine Protein Urine Glucose (UA) Urine Ketones Urine Blood Urine Nitrate Urine Bilirubin Urine Urobilinogen Ur Leukocyte Esterase Urine WBC (Auto) Urine Bacteria
--- NOTE | 2018-05-04 15:33 | CP.PCM.CON ---
History of Present Illness - History of Present Illness History of Present Illness: Nephrology Consultation Note: Assessment: Stable Hypoglycemia with AMS HTN urgency Diabetic chronic Kidney Disease (E11.22) Hypertensive Chronic Kidney Disease (I12.9) Chronic Kidney Disease (N18.5) Stage 5 with 3800 mg proteinuria (R80.9) likely due to DM/HTN Anemia (D64.9), Hyperphosphatemia (E83.39), Secondary Hyperparathyroidism (E21.1), HTN (I12.9), Vit D def Plan likely need for renal replacement therapy in near future d/w patient, he refused for dialysis. pt says that his sister will come to get him and he would go and d ie in [facility]. Hypertension control with meds as ordered. Maintain hemodynamics stable. Avoid hypotension. Patient not on ACEI/ARB due to advanced CKD. added prn hydralazine Monitor Input/Output, daily weights and renal function with basic metabolic panel diuresis with IV lasix added iron, MVI and calcitriol continue with sodium bicarb supplements repeat labs in am avoid phlebotomy or IV line in non-dominant arm. AV access placement if pt agreeable for dialysis psychiatry consult to assess his decisional capacity Dose meds/antibiotics for reduced GFR. Avoid fleets enema/magnesium based laxat jeanine. Avoid nephrotoxins/NSAIDs/ iodinated contrast (unless needed emergently) Glycemic control Further work up/management as per primary team Thanks for allowing me to participate in care of your patient. Will follow patient with you. Please call if any Qs. had d/w team Dr Rashid Morales Office: [phone] Chief Complaint; low sugar Reason for consult: CKD management HPI: Pt is a 62 M with hx of diabetes Mellitus ( years), hypertension (years) alcohol in past, anemia, CKD 4/5 presented with complaints of low blood sugar and AMS with it. now better. Denies OTC/herbal meds or NSAIDs No recent iodinated contrast exposure. No obvious episodes of low BP. renal consult for CKD management pt feels beter. denies SOB/chest pain has hoarsenes of voice, says due to stroke in past ROS: Cardiovascular: No chest pain. Pulmonary: No shortness of breath Gastrointestinal: denies abdominal pain No nausea. No vomiting. Genitourinary: No pain while urinating. Denies blood in urine. All other negative except as mentioned in HPI Physical Examination: General Appearance: Comfortable, in no acute respiratory distress, co-operative . Vitals reviewed and noted as below Head; Atraumatic, normocephalic ENT: no ulcers no thrush. Tongue is midline. Oropharynx: no rash or ulcers. hoarse voice EYES: Pupils are equal, round and reactive to light accommodation. Eye muscles and extraocular movement intact. Sclera is anicteric. Neck; supple no lymphadenopathy, no thyromegaly or bruit Lungs: Normal respiratory rate/effort. Breath sounds bilateral equal and basal crackles+ Heart: Normal rate. s1s2 normal. No rub or gallop. Extremities: 2+ edema. No varicose veins Neurological: Patient is alert, awake and oriented to person, place and time. No focal deficit. Strength bilateral appropriate and equal Skin: Warm and dry. Normal turgor. No rash. Palpitation: Normal elasticity for age Abdomen: Abdomen is soft. Bowel sounds +. There is no abdominal tenderness, no guarding/rigidity no organomegaly Psych: limited insight and flat affect/mood MSK: no joint tenderness or swelling. Digits and nails normal, no deformity : kidney or bladder not palpable Labs/imaging reviewed. Past medical history, past surgical history, family history, social history, allergy reviewed and noted as below Family hx: no hx of CKD. Rest non-contributory renal sono: b/l cysts Vit D <12.8 PTH 1094 Hep B/C/HIV neg UA 2+ protein with 3.8 gram proteinuria and 1.6 gram albuminuria TSAT 22% Ferritin 28 Past Patient History - Infectious Disease Hx of Infectious Diseases: None - Past Medical History & Family History Past Medical History?: Yes - Past Social History Smoking Status: Former Smoker - CARDIAC Hx Congestive Heart Failure: Yes Hx Hypertension: Yes - PULMONARY Hx Respiratory Disorders: No - NEUROLOGICAL Hx Seizures: Yes - HEENT Hx HEENT Problems: No - RENAL Hx Chronic Kidney Disease: Yes Hx Kidney Stones: Yes - ENDOCRINE/METABOLIC Hx Endocrine Disorders: Yes Hx Diabetes Mellitus Type 2: Yes - HEMATOLOGICAL/ONCOLOGICAL Hx Blood Disorders: No Hx Blood Transfusions: No - INTEGUMENTARY Hx Dermatological Problems: No - MUSCULOSKELETAL/RHEUMATOLOGICAL Hx Falls: No - GASTROINTESTINAL Hx Gastrointestinal Disorders: No - GENITOURINARY/GYNECOLOGICAL Hx Genitourinary Disorders: No - PSYCHIATRIC Hx Substance Use: No - SURGICAL HISTORY Hx Surgeries: No - ANESTHESIA Hx Anesthesia: No Hx Anesthesia Reactions: No Hx Malignant Hyperthermia: No Meds Allergies/Adverse Reactions: Allergies Allergy/AdvReac Type Severity Reaction Status Date / Time No Known Allergies Allergy Verified 05/04/18 07:09 - Medications Medications: Current Medications Allopurinol (Zyloprim) 100 mg PO DAILY [facility] Amlodipine Besylate (Norvasc) 10 mg PO DAILY [facility] Aspirin (Aspirin Chewable) 81 mg PO DAILY [facility] Calcitriol (Rocaltrol) 0.25 mcg PO DAILY [facility] Carvedilol (Coreg) 25 mg PO BID [facility] Ferrous Gluconate (Fergon) 324 mg PO TID [facility] Finasteride (Proscar) 5 mg PO DAILY [facility] Furosemide (Lasix) 40 mg IVP BID [facility] Heparin Sodium (Porcine) (Heparin) 5,000 units SC Q12 [facility] Hydralazine HCl (Apresoline) 25 mg PO Q4 PRN PRN Reason: Other Ceftriaxone Sodium 1 gm/ (Sodium Chloride) 100 mls @ 100 mls/hr IVPB Q24H [facility]; Protocol Rosuvastatin Calcium (Crestor) 5 mg PO HS [facility] Sevelamer Carbonate (Renvela) 800 mg PO TIDCC [facility] Sodium Bicarbonate (Sodium Bicarbonate Tab) 1,300 mg PO BID [facility] Tamsulosin HCl (Flomax) 0.4 mg PO DAILY [facility] Vitamin B Complex/Vit C/Folic Acid (Nephro-[place]) 1 tab PO 0800 [facility] Results - Vital Signs Recent Vital Signs: Last Vital Signs Temp 98.1 F 05/04/18 12:49 Pulse 86 05/04/18 12:49 Resp 20 05/04/18 12:49 BP 169/96 H 05/04/18 13:50 Pulse Ox 99 05/04/18 12:49 - Labs Result Diagrams: 05/04/18 07:20 05/04/18 08:05 Labs: Laboratory Results - last 24 hr 05/04/18 05/04/18 05/04/18 06:59 07:20 07:33 WBC 7.1 RBC 3.67 L Hgb 11.4 L Hct 33.2 L MCV 90.5 MCH 31.1 H MCHC 34.4 RDW 14.2 Plt Count 242 MPV 7.8 Neut % (Auto) 75.9 H Lymph % (Auto) 10.9 L [place] % (Auto) 6.6 Eos % (Auto) 5.7 H Baso % (Auto) 0.9 Neut # (Auto) 5.4 Lymph # (Auto) 0.8 L [place] # (Auto) 0.5 Eos # (Auto) 0.4 Baso # (Auto) 0.1 pO2 32 VBG pH 7.28 L VBG pCO2 42 VBG HCO3 18.4 VBG Total CO2 21.0 L VBG Base Excess -6.8 L VBG Potassium 5.7 H Sodium 138.0 Chloride 108.0 H Glucose 113 H Lactate 1.2 Potassium Carbon Dioxide Anion Gap BUN Creatinine Est GFR ( Amer) Est GFR (Non-Af Amer) POC Glucose (mg/dL) 106 Random Glucose Calcium Magnesium Total Bilirubin AST ALT Alkaline Phosphatase Total Creatine Kinase Troponin I NT-Pro-B Natriuret Pep Total Protein Albumin Globulin Albumin/Globulin Ratio Lipase TSH 3rd Generation Venous Blood Potassium 5.7 H Urine Color Urine Clarity Urine pH Ur Specific [place] Urine Protein Urine Glucose (UA) Urine Ketones Urine Blood Urine Nitrate Urine Bilirubin Urine Urobilinogen Ur Leukocyte Esterase Urine WBC (Auto) Urine Bacteria 05/04/18 05/04/18 05/04/18 08:05 08:05 08:57 WBC RBC Hgb Hct MCV MCH MCHC RDW Plt Count MPV Neut % (Auto) Lymph % (Auto) [place] % (Auto) Eos % (Auto) Baso % (Auto) Neut # (Auto) Lymph # (Auto) [place] # (Auto) Eos # (Auto) Baso # (Auto) pO2 VBG pH VBG pCO2 VBG HCO3 VBG Total CO2 VBG Base Excess VBG Potassium Sodium 141 Chloride 104 Glucose Lactate Potassium 3.7 Carbon Dioxide 20 L Anion Gap 21 H BUN 66 H Creatinine 5.9 H Est GFR ( Amer) 12 Est GFR (Non-Af Amer) 10 POC Glucose (mg/dL) 95 Random Glucose 84 Calcium 9.4 Magnesium 2.2 Total Bilirubin 0.7 AST 21 ALT 24 Alkaline Phosphatase 99 Total Creatine Kinase 99 Troponin I 0.0380 NT-Pro-B Natriuret Pep 1690 H Total Protein 8.3 Albumin 4.6 Globulin 3.7 Albumin/Globulin Ratio 1.3 Lipase 205 TSH 3rd Generation 1.37 Venous Blood Potassium Urine Color Urine Clarity Urine pH Ur Specific [place] Urine Protein Urine Glucose (UA) Urine Ketones Urine Blood Urine Nitrate Urine Bilirubin Urine Urobilinogen Ur Leukocyte Esterase Urine WBC (Auto) Urine Bacteria 05/04/18 05/04/18 05/04/18 08:59 11:21 11:23 WBC RBC Hgb Hct MCV MCH MCHC RDW Plt Count MPV Neut % (Auto) Lymph % (Auto) [place] % (Auto) Eos % (Auto) Baso % (Auto) Neut # (Auto) Lymph # (Auto) [place] # (Auto) Eos # (Auto) Baso # (Auto) pO2 VBG pH VBG pCO2 VBG HCO3 VBG Total CO2 VBG Base Excess VBG Potassium Sodium Chloride Glucose Lactate Potassium Carbon Dioxide Anion Gap BUN Creatinine Est GFR ( Amer) Est GFR (Non-Af Amer) POC Glucose (mg/dL) 33 L* 37 L* Random Glucose Calcium Magnesium Total Bilirubin AST ALT Alkaline Phosphatase Total Creatine Kinase Troponin I NT-Pro-B Natriuret Pep Total Protein Albumin Globulin Albumin/Globulin Ratio Lipase TSH 3rd Generation Venous Blood Potassium Urine Color Straw Urine Clarity Clear Urine pH 6.0 Ur Specific [place] 1.008 Urine Protein 2+ H Urine Glucose (UA) 1+ H Urine Ketones Negative Urine Blood 1+ H Urine Nitrate Negative Urine Bilirubin Negative Urine Urobilinogen Normal Ur Leukocyte Esterase Neg Urine WBC (Auto) < 1 Urine Bacteria Rare 05/04/18 12:02 WBC RBC Hgb Hct MCV MCH MCHC RDW Plt Count MPV Neut % (Auto) Lymph % (Auto) [place] % (Auto) Eos % (Auto) Baso % (Auto) Neut # (Auto) Lymph # (Auto) [place] # (Auto) Eos # (Auto) Baso # (Auto) pO2 VBG pH VBG pCO2 VBG HCO3 VBG Total CO2 VBG Base Excess VBG Potassium Sodium Chloride Glucose Lactate Potassium Carbon Dioxide Anion Gap BUN Creatinine Est GFR ( Amer) Est GFR (Non-Af Amer) POC Glucose (mg/dL) 110 Random Glucose Calcium Magnesium Total Bilirubin AST ALT Alkaline Phosphatase Total Creatine Kinase Troponin I NT-Pro-B Natriuret Pep Total Protein Albumin Globulin Albumin/Globulin Ratio Lipase TSH 3rd Generation Venous Blood Potassium Urine Color Urine Clarity Urine pH Ur Specific [place] Urine Protein Urine Glucose (UA) Urine Ketones Urine Blood Urine Nitrate Urine Bilirubin Urine Urobilinogen Ur Leukocyte Esterase Urine WBC (Auto) Urine Bacteria
--- NOTE | 2018-05-04 16:17 | RAD ---
Date of service: 05/04/2018 HISTORY: History of pna COMPARISON: Comparison made with chest radiograph and CT scan CT chest both dated 04/17/2018. TECHNIQUE: Chest PA and lateral FINDINGS: LUNGS: Poor inspiration with low lung volumes, crowded bronchovascular markings and mild minor bibasilar atelectasis. PLEURA: No significant pleural effusion identified. No pneumothorax apparent. CARDIOVASCULAR: Marked cardiomegaly. OSSEOUS STRUCTURES: No significant abnormalities. VISUALIZED UPPER ABDOMEN: Normal. OTHER FINDINGS: None. IMPRESSION: Marked cardiomegaly. Poor inspiration with low lung volumes, crowded bronchovascular markings and mild minor bibasilar atelectasis.
[2018-05-05] MEDS: Multivitamin Vitamin B Complex (Nephro-Vite) Tab PO SCH (08:50)
--- NOTE | 2018-05-05 09:53 | CP.PCM.PN ---
Subjective - Date & Time of Evaluation Date of Evaluation: 05/05/18 Time of Evaluation: 09:52 Objective - Vital Signs/Intake and Output Vital Signs (last 24 hours): Temp Pulse Resp BP Pulse Ox 98.0 F 63 20 170/82 H 98 05/05/18 07:00 05/05/18 07:00 05/05/18 07:00 05/05/18 09:35 05/05/18 07:00 Intake and Output: 05/05/18 05/05/18 06:59 18:59 Intake Total 300 Balance 300 - Medications Medications: Current Medications Allopurinol (Zyloprim) 100 mg PO DAILY [facility] Last Admin: 05/05/18 09:35 Dose: 100 mg Amlodipine Besylate (Norvasc) 10 mg PO DAILY [facility] Last Admin: 05/05/18 09:35 Dose: 10 mg Aspirin (Aspirin Chewable) 81 mg PO DAILY [facility] Last Admin: 05/05/18 09:35 Dose: 81 mg Calcitriol (Rocaltrol) 0.25 mcg PO DAILY [facility] Last Admin: 05/05/18 09:37 Dose: 0.25 mcg Carvedilol (Coreg) 25 mg PO BID [facility] Last Admin: 05/05/18 09:35 Dose: 25 mg Ferrous Gluconate (Fergon) 324 mg PO TID [facility] Last Admin: 05/05/18 09:35 Dose: 324 mg Finasteride (Proscar) 5 mg PO DAILY [facility] Last Admin: 05/05/18 09:34 Dose: 5 mg Furosemide (Lasix) 40 mg IVP Q12 [facility] Last Admin: 05/05/18 09:35 Dose: 40 mg Heparin Sodium (Porcine) (Heparin) 5,000 units SC Q12 [facility] Last Admin: 05/05/18 09:35 Dose: 5,000 units Hydralazine HCl (Apresoline) 25 mg PO Q4 PRN PRN Reason: Other Ceftriaxone Sodium 1 gm/ (Sodium Chloride) 100 mls @ 100 mls/hr IVPB Q24H [facility]; Protocol Last Admin: 05/04/18 18:01 Dose: 100 mls/hr Rosuvastatin Calcium (Crestor) 5 mg PO HS [facility] Last Admin: 05/04/18 22:54 Dose: 5 mg Sevelamer Carbonate (Renvela) 800 mg PO TIDCC [facility] Last Admin: 05/05/18 08:50 Dose: 800 mg Sodium Bicarbonate (Sodium Bicarbonate Tab) 1,300 mg PO BID [facility] Last Admin: 05/05/18 09:34 Dose: 1,300 mg Tamsulosin HCl (Flomax) 0.4 mg PO DAILY [facility] Last Admin: 05/05/18 09:35 Dose: 0.4 mg Vitamin B Complex/Vit C/Folic Acid (Nephro-Socorro) 1 tab PO 0800 [facility] Last Admin: 05/05/18 08:50 Dose: 1 tab - Labs Labs: 05/04/18 07:20 05/04/18 08:05
--- NOTE | 2018-05-05 11:58 | CP.PCM.PN ---
Subjective - Date & Time of Evaluation Date of Evaluation: 05/05/18 Time of Evaluation: 11:58 - Subjective Subjective: Nephrology Consultation Note: Assessment: Stable Hypoglycemia with AMS HTN urgency Diabetic chronic Kidney Disease (E11.22) Hypertensive Chronic Kidney Disease (I12.9) Chronic Kidney Disease (N18.5) Stage 5 with 3800 mg proteinuria (R80.9) likely due to DM/HTN Anemia (D64.9), Hyperphosphatemia (E83.39), Secondary Hyperparathyroidism (E21.1), HTN (I12.9), Vit D def Plan likely need for renal replacement therapy in near future d/w patient, he refused for dialysis. pt says that his sister will come to get him and he would go and d ie in [facility]. Hypertension control with meds as ordered. Maintain hemodynamics stable. Avoid hypotension. Patient not on ACEI/ARB due to advanced CKD. added prn hydralazine along with hydralazine 50 mg bid Monitor Input/Output, daily weights and renal function with basic metabolic panel diuresis with IV lasix added iron, MVI and calcitriol continue with sodium bicarb supplements repeat labs in am avoid phlebotomy or IV line in non-dominant arm. AV access placement if pt agreeable for dialysis psychiatry consult to assess his decisional capacity Dose meds/antibiotics for reduced GFR. Avoid fleets enema/magnesium based laxatives. Avoid nephrotoxins/NSAIDs/ iodinated contrast (unless needed emergently) Glycemic control Further work up/management as per primary team Thanks for allowing me to participate in care of your patient. Will follow patient with you. Please call if any Qs. had d/w team Dr Rashid Morales Office: [phone] Chief Complaint; low sugar Reason for consult: CKD management HPI: Pt is a 62 M with hx of diabetes Mellitus ( years), hypertension (years) alcohol in past, anemia, CKD 4/5 presented with complaints of low blood sugar and AMS with it. now better. Denies OTC/herbal meds or NSAIDs No recent iodinated contrast exposure. No obvious episodes of low BP. renal consult for CKD management pt feels beter. denies SOB/chest pain has hoarsenes of voice, says due to stroke in past ROS: Cardiovascular: No chest pain. Pulmonary: No shortness of breath Gastrointestinal: denies abdominal pain No nausea. No vomiting. Genitourinary: No pain while urinating. Denies blood in urine. All other negative except as mentioned in HPI Physical Examination: General Appearance: Comfortable, in no acute respiratory distress, co-operative . Vitals reviewed and noted as below Head; Atraumatic, normocephalic ENT: no ulcers no thrush. Tongue is midline. Oropharynx: no rash or ulcers. hoarse voice EYES: Pupils are equal, round and reactive to light accommodation. Eye muscles and extraocular movement intact. Sclera is anicteric. Neck; supple no lymphadenopathy, no thyromegaly or bruit Lungs: Normal respiratory rate/effort. Breath sounds bilateral equal and basal crackles+ Heart: Normal rate. s1s2 normal. No rub or gallop. Extremities: 1-2+ edema. No varicose veins Neurological: Patient is alert, awake and oriented to person, place and time. No focal deficit. Strength bilateral appropriate and equal Skin: Warm and dry. Normal turgor. No rash. Palpitation: Normal elasticity for age Abdomen: Abdomen is soft. Bowel sounds +. There is no abdominal tenderness, no guarding/rigidity no organomegaly Psych: limited insight and flat affect/mood MSK: no joint tenderness or swelling. Digits and nails normal, no deformity : kidney or bladder not palpable Labs/imaging reviewed. Past medical history, past surgical history, family history, social history, allergy reviewed and noted as below Family hx: no hx of CKD. Rest non-contributory renal sono: b/l cysts Vit D <12.8 PTH 1094 Hep B/C/HIV neg UA 2+ protein with 3.8 gram proteinuria and 1.6 gram albuminuria TSAT 22% Ferritin 28 Objective - Vital Signs/Intake and Output Vital Signs (last 24 hours): Temp Pulse Resp BP Pulse Ox 98.0 F 63 20 170/82 H 98 05/05/18 07:00 05/05/18 07:00 05/05/18 07:00 05/05/18 09:35 05/05/18 07:00 Intake and Output: 05/05/18 05/05/18 06:59 18:59 Intake Total 300 Balance 300 - Medications Medications: Current Medications Allopurinol (Zyloprim) 100 mg PO DAILY [facility] Last Admin: 05/05/18 09:35 Dose: 100 mg Amlodipine Besylate (Norvasc) 10 mg PO DAILY [facility] Last Admin: 05/05/18 09:35 Dose: 10 mg Aspirin (Aspirin Chewable) 81 mg PO DAILY [facility] Last Admin: 05/05/18 09:35 Dose: 81 mg Calcitriol (Rocaltrol) 0.25 mcg PO DAILY [facility] Last Admin: 05/05/18 09:37 Dose: 0.25 mcg Carvedilol (Coreg) 25 mg PO BID [facility] Last Admin: 05/05/18 09:35 Dose: 25 mg Ferrous Gluconate (Fergon) 324 mg PO TID [facility] Last Admin: 05/05/18 09:35 Dose: 324 mg Finasteride (Proscar) 5 mg PO DAILY [facility] Last Admin: 05/05/18 09:34 Dose: 5 mg Furosemide (Lasix) 40 mg IVP Q12 [facility] Last Admin: 05/05/18 09:35 Dose: 40 mg Heparin Sodium (Porcine) (Heparin) 5,000 units SC Q12 [facility] Last Admin: 05/05/18 09:35 Dose: 5,000 units Hydralazine HCl (Apresoline) 25 mg PO Q4 PRN PRN Reason: Other Hydralazine HCl (Apresoline) 50 mg PO BID [facility] Ceftriaxone Sodium 1 gm/ (Sodium Chloride) 100 mls @ 100 mls/hr IVPB Q24H [facility]; Protocol Last Admin: 05/04/18 18:01 Dose: 100 mls/hr Rosuvastatin Calcium (Crestor) 5 mg PO HS [facility] Last Admin: 05/04/18 22:54 Dose: 5 mg Sevelamer Carbonate (Renvela) 800 mg PO TIDCC [facility] Last Admin: 05/05/18 08:50 Dose: 800 mg Sodium Bicarbonate (Sodium Bicarbonate Tab) 1,300 mg PO BID [facility] Last Admin: 05/05/18 09:34 Dose: 1,300 mg Tamsulosin HCl (Flomax) 0.4 mg PO DAILY [facility] Last Admin: 05/05/18 09:35 Dose: 0.4 mg Vitamin B Complex/Vit C/Folic Acid (Nephro-Socorro) 1 tab PO 0800 [facility] Last Admin: 05/05/18 08:50 Dose: 1 tab - Labs Labs: 05/04/18 07:20 05/04/18 08:05
--- NOTE | 2018-05-05 20:51 | CP.PCM.CON ---
History of Present Illness - History of Present Illness History of Present Illness: 62 yr old male w/ hx of CVA, HTN, CKD, hx of hypoglycemia 2/2 glimiperide p/w AMS + hypoglycemia. Per EMS pt was noted to be lethargic and having shaking movements at home Currently: No CP or SOB sitting up in bed, no distress PMHX: CHF, CVA (x3), Diabetes, HTN, Kidney Stones, Chronic Kidney Disease, Seizures Review of Systems - Review of Systems All systems: reviewed and no additional remarkable complaints except Past Patient History - Infectious Disease Hx of Infectious Diseases: None - Past Medical History & Family History Past Medical History?: Yes - Past Social History Smoking Status: Former Smoker - CARDIAC Hx Congestive Heart Failure: Yes Hx Hypertension: Yes - PULMONARY Hx Respiratory Disorders: No - NEUROLOGICAL Hx Seizures: Yes - HEENT Hx HEENT Problems: No - RENAL Hx Chronic Kidney Disease: Yes Hx Kidney Stones: Yes - ENDOCRINE/METABOLIC Hx Endocrine Disorders: Yes Hx Diabetes Mellitus Type 2: Yes - HEMATOLOGICAL/ONCOLOGICAL Hx Blood Disorders: No Hx Blood Transfusions: No - INTEGUMENTARY Hx Dermatological Problems: No - MUSCULOSKELETAL/RHEUMATOLOGICAL Hx Falls: No - GASTROINTESTINAL Hx Gastrointestinal Disorders: No - GENITOURINARY/GYNECOLOGICAL Hx Genitourinary Disorders: No - PSYCHIATRIC Hx Substance Use: No - SURGICAL HISTORY Hx Surgeries: No - ANESTHESIA Hx Anesthesia: No Hx Anesthesia Reactions: No Hx Malignant Hyperthermia: No Meds Allergies/Adverse Reactions: Allergies Allergy/AdvReac Type Severity Reaction Status Date / Time Unobtainable Allergy Verified 05/06/18 08:51 - Medications Medications: Current Medications Allopurinol (Zyloprim) 100 mg PO DAILY [facility] Last Admin: 05/05/18 09:35 Dose: 100 mg Amlodipine Besylate (Norvasc) 10 mg PO DAILY [facility] Last Admin: 05/05/18 09:35 Dose: 10 mg Aspirin (Aspirin Chewable) 81 mg PO DAILY [facility] Last Admin: 05/05/18 09:35 Dose: 81 mg Calcitriol (Rocaltrol) 0.25 mcg PO DAILY [facility] Last Admin: 05/05/18 09:37 Dose: 0.25 mcg Carvedilol (Coreg) 25 mg PO BID [facility] Last Admin: 05/05/18 19:00 Dose: 25 mg Ferrous Gluconate (Fergon) 324 mg PO TID [facility] Last Admin: 05/05/18 19:00 Dose: 324 mg Finasteride (Proscar) 5 mg PO DAILY [facility] Last Admin: 05/05/18 09:34 Dose: 5 mg Furosemide (Lasix) 40 mg IVP Q12 [facility] Last Admin: 05/05/18 09:35 Dose: 40 mg Heparin Sodium (Porcine) (Heparin) 5,000 units SC Q12 [facility] Last Admin: 05/05/18 13:51 Dose: Not Given Hydralazine HCl (Apresoline) 25 mg PO Q4 PRN PRN Reason: Other Hydralazine HCl (Apresoline) 50 mg PO BID [facility] Last Admin: 05/05/18 19:00 Dose: Not Given Ceftriaxone Sodium 1 gm/ (Sodium Chloride) 100 mls @ 100 mls/hr IVPB Q24H [facility]; Protocol Last Admin: 05/05/18 19:00 Dose: 100 mls/hr Rosuvastatin Calcium (Crestor) 5 mg PO HS [facility] Last Admin: 05/04/18 22:54 Dose: 5 mg Sevelamer Carbonate (Renvela) 800 mg PO TIDCC [facility] Last Admin: 05/05/18 18:00 Dose: 800 mg Sodium Bicarbonate (Sodium Bicarbonate Tab) 1,300 mg PO BID [facility] Last Admin: 05/05/18 19:00 Dose: 1,300 mg Tamsulosin HCl (Flomax) 0.4 mg PO DAILY [facility] Last Admin: 05/05/18 09:35 Dose: 0.4 mg Vitamin B Complex/Vit C/Folic Acid (Nephro-Socorro) 1 tab PO 0800 [facility] Last Admin: 05/05/18 08:50 Dose: 1 tab Physical Exam - Constitutional Appears: Chronically Ill - Head Exam Head Exam: ATRAUMATIC, NORMAL INSPECTION, NORMOCEPHALIC - Eye Exam Eye Exam: EOMI, Normal appearance, PERRL - ENT Exam ENT Exam: Mucous Membranes Moist, Normal Oropharynx - Neck Exam Neck exam: Positive for: Normal Inspection. Negative for: Tenderness, Thyromegaly - Respiratory Exam Respiratory Exam: Clear to Auscultation Bilateral, NORMAL BREATHING PATTERN. absent: Rhonchi, Wheezes - Cardiovascular Exam Cardiovascular Exam: REGULAR RHYTHM, +S1, +S2. absent: Systolic Murmur - GI/Abdominal Exam GI & Abdominal Exam: Normal Bowel Sounds, Soft, Tenderness. absent: Organomegaly - Extremities Exam Extremities exam: Negative for: normal inspection (CEAP 3- venous stasis changes) - Neurological Exam Neurological exam: Alert, Oriented x3 Additional comments: RUE weakness 4/5 RLE weakness 4/5 - Psychiatric Exam Psychiatric exam: Normal Affect Results - Vital Signs Recent Vital Signs: Last Vital Signs Temp 97.4 F L 05/05/18 15:01 Pulse 81 05/05/18 15:01 Resp 20 05/05/18 15:01 BP 162/77 H 05/05/18 19:00 Pulse Ox 98 05/05/18 15:01 - Labs Result Diagrams: 05/04/18 07:20 05/04/18 08:05 Labs: Laboratory Results - last 24 hr 05/04/18 05/05/18 05/05/18 21:05 02:07 06:28 POC Glucose (mg/dL) 106 163 H 121 H 05/05/18 05/05/18 11:30 16:27 POC Glucose (mg/dL) 100 139 H - EKG Data EKG Interpreted by: Myself Assessment & Plan - Assessment and Plan (Free Text) Assessment: Data and diagnostics rev by me: > EKG: AFIB, rate controlled, LVH with strain > CThead: microvascular changes remote small infarcts > CXR: COPD changes, no infiltrate ot effusions SOB > patient with hx of COPD > echo 03/2018 images rev by me: Normal LVEF, LVH, diastolic dysfunction grade 1, mod LAE, > Troponin negative Sx's are likely secondary to obesity, acute on chronic diastolic dysfunction and volume overload Cont HD to mainatain volume status. HTN > Uncontrolled Cont coreg, norvasc; suggest inc hydralazine to 100 TID Low salt diet eval for sleep apnea AFIB > chronic > not a candidate for anticoagulation Cont rate control with coreg Patient currently is hemodynamically stable without ADHF Cont to optimize BP Rx DVT and GI prohylaxis No additional cardiac w/u planned PT, consider rehab Will sign off:
[2018-05-06] MEDS: Multivitamin Vitamin B Complex (Nephro-Vite) Tab PO SCH (08:21)
--- NOTE | 2018-05-06 11:51 | PCM.PSYCH ---
Initial Psychiatric Evaluation - Initial Psychiatric Evaluation Chief Complaint (in patient's own words): "I don't care if I or live!!" History of Present Illness and Precipitating Events: The patient is seen, chart reviewed and case discussed. Consultation was requested for capacity evaluation and he was refusing treatment. The patient is seen with director medical. He is also known to the technical publications writer from a previous consultation recently. He is 62 years old and he states he lives with his who the technical publications writer will call. The patient is disabled and dysarthric due to a stroke, has hemiparalysis and recent need for hemodialysis. The patient reports feeling depressed and wishing he he were . However, he does not have any suicidal ideation or plan or intention. He says he doesn't care if he dies, when he was confronted with the consequences of refusing blood work or hemodialysis. He is also irate, somewhat uncooperative, rigid and very forgetful. His cognitive functions fluctuate and the technical publications writer released is suspected he may be developing dementia because of the extent of his memory loss. He is oriented to place time and person but not fully. He denied manic or psychotic symptoms. Past psych history: Unknown, he wouldn't elaborate. Family psych history: Also unknown for the same reason. Medical history: Stroke and multiple medical problems. Please see chart for details Current Medications: Active Medications Generic Name Dose Route Start Last Admin Trade Name Yanira PRN Reason Stop Dose Admin Allopurinol 100 mg 05/05/18 10:00 05/05/18 09:35 Zyloprim PO 100 mg DAILY [facility] Administration Amlodipine Besylate 10 mg 05/05/18 10:00 05/06/18 09:39 Norvasc PO 10 mg DAILY [facility] Administration Aspirin 81 mg 05/05/18 10:00 05/06/18 09:39 Aspirin Chewable PO 81 mg DAILY [facility] Administration Calcitriol 0.25 mcg 05/04/18 15:30 05/06/18 09:39 Rocaltrol PO 0.25 mcg DAILY [facility] Administration Carvedilol 25 mg 05/04/18 18:00 05/06/18 09:39 Coreg PO 25 mg BID [facility] Administration Ferrous Gluconate 324 mg 05/04/18 18:00 05/06/18 09:44 Fergon PO 324 mg TID [facility] Administration Finasteride 5 mg 05/05/18 10:00 05/05/18 09:34 Proscar PO 5 mg DAILY [facility] Administration Furosemide 40 mg 05/04/18 15:30 05/06/18 09:38 Lasix IVP 40 mg Q12 [facility] Administration Heparin Sodium (Porcine) 5,000 units 05/05/18 10:00 05/05/18 22:54 Heparin SC Not Given Q12 [facility] Hydralazine HCl 25 mg 05/04/18 15:22 Apresoline PO Q4 PRN Other Hydralazine HCl 50 mg 05/05/18 10:30 05/06/18 09:39 Apresoline PO 50 mg BID [facility] Administration Ceftriaxone Sodium 1 gm/ 100 mls @ 100 mls/hr 05/04/18 18:00 05/05/18 19:00 Sodium Chloride IVPB 100 mls/hr Q24H [facility] Administration Protocol Rosuvastatin Calcium 5 mg 05/04/18 22:00 05/05/18 22:54 Crestor PO 5 mg HS [facility] Administration Sevelamer Carbonate 800 mg 05/04/18 17:00 05/06/18 08:21 Renvela PO 800 mg TIDCC [facility] Administration Sodium Bicarbonate 1,300 mg 05/04/18 18:00 05/06/18 09:39 Sodium Bicarbonate Tab PO 1,300 mg BID [facility] Administration Tamsulosin HCl 0.4 mg 05/05/18 10:00 05/06/18 09:39 Flomax PO 0.4 mg DAILY [facility] Administration Vitamin B Complex/Vit C/Folic Acid 1 tab 05/05/18 08:00 05/06/18 08:21 Nephro-Socorro PO 1 tab 0800 [facility] Administration Past Psychiatric History - Past Psychiatric History Previous Treatment History: None Pertinent Medical Hx (Current Medical&Sleep Prob, Allergies): Allergies Allergy/AdvReac Type Severity Reaction Status Date / Time Unobtainable Allergy Verified 05/06/18 08:51 Aspirin [Aspirin Chewable] 81 mg PO DAILY 03/08/18 Atorvastatin [Lipitor] 10 mg PO DAILY 03/08/18 Carvedilol [Coreg] 25 mg PO BID 03/08/18 Allopurinol [Zyloprim] 100 mg PO DAILY #30 tab 03/12/18 Calcitriol [Rocaltrol] 0.5 mcg PO DAILY sgl 03/12/18 Ergocalciferol [Drisdol 50,000 Intl Units Cap] 1 cap PO Q7D cap 03/12/18 Finasteride [Proscar] 5 mg PO DAILY #30 tab 03/12/18 Furosemide [Lasix] 20 mg PO DAILY #30 tab 03/12/18 Sodium Bicarbonate Tab 1,300 mg PO BID #120 tab 03/12/18 Tamsulosin [Flomax] 0.4 mg PO DAILY #30 cap 03/12/18 amLODIPine [Norvasc] 10 mg PO DAILY tab 03/12/18 Aspirin [Ecotrin] 81 mg PO DAILY #30 tabec 04/11/18 Atorvastatin [Lipitor] 10 mg PO HS #30 tab 04/11/18 Carvedilol [Coreg] 25 mg PO Q12 #30 tab 04/11/18 Finasteride [Proscar] 5 mg PO DAILY #30 tab 04/11/18 Furosemide [Lasix] 20 mg PO DAILY #30 tab 04/11/18 Sodium Bicarbonate Tab 1,300 mg PO BID #120 tab 04/11/18 Tamsulosin [Flomax] 0.4 mg PO HS #30 cap 04/11/18 amLODIPine [Norvasc] 10 mg PO DAILY #30 tab 04/11/18 Amoxicillin/Potassium Clav [Augmentin 500 mg-125 mg] 1 tab PO Q12H 5 Days tab 04/22/18 Review of Systems - Psychiatric Psychiatric: Abnormal Sleep Pattern, Anhedonia, Anxiety, Change in Appetite, Confusion, Depression, Difficulty Concentrating, Irritability, Memory Loss, Suicidal Ideation (Passive ideation). absent: Homicidal Ideation, Paranoia Mental Status Examination - Personal Presentation Personal Presentation: Looks older than stated age (Disheveled) - Affect Affect: Constricted - Motor Activity Motor Activity: Psychomotor Retardation - Reliability in Providing Information Reliability in Providing Information: Poor, due to altered mood, Poor, due to cognitve impairment - Speech Speech: Disorganized - Mood Mood: Depressed, Anxious, Other (Irate, at times angry) - Formal Thought Process Formal Thought Process: No Impairment - Cognitive Functions Orientation: Person, Place, Time Sensorium: Drowsy Attention/Concentration: Easily distracted Abstract Thinking: [place] Estimate of Intelligence: Below average Judgement: Imparied, as evidence by: Poor judgement (Refusing treatment) Memory: Recent impaired, as evidence by: Inability to recall events of the day, Remote impaired as evidenced by: Inability to recall sig life events - Risk Risk: Diminished functioning - Limitations Limitations: Other (Poor social support, chronic medical illness) DSM 5 DX - DSM 5 DSM 5 Diagnosis: Major depressive disorder, single, severe, without psychosis Anxiety disorder, unspecified Dementia, unspecified - Recommended/Plan of Treatment Treatment Recommendations and Plan of Treatment: The patient does not have capacity at this time to make medical decisions or sign out AMA. He has cognitive decline as well as depression, both of which cloud his judgment and decision-making capacity. With improvement this may change. Close monitoring Lexapro for depression Isidoro for anxiety Support daily Education daily on his treatment and risks Family contact to gather their support 33 min
--- NOTE | 2018-05-06 15:41 | CP.PCM.PN ---
Subjective - Date & Time of Evaluation Date of Evaluation: 05/06/18 Time of Evaluation: 15:39 - Subjective Subjective: Nephrology Consultation Note: Assessment: Stable Hypoglycemia with AMS HTN urgency Diabetic chronic Kidney Disease (E11.22) Hypertensive Chronic Kidney Disease (I12.9) Chronic Kidney Disease (N18.5) Stage 5 with 3800 mg proteinuria (R80.9) likely due to DM/HTN Anemia (D64.9), Hyperphosphatemia (E83.39), Secondary Hyperparathyroidism (E21.1), HTN (I12.9), Vit D def Plan likely need for renal replacement therapy in near future d/w patient, he refused for dialysis. pt says that his sister will come to get him and [facility] would [facility] psychiatry consult to assess his decisional capacity and suggested pt lack the decisional capacity. Hypertension control with meds as ordered. Maintain hemodynamics stable. Avoid hypotension. Patient not on ACEI/ARB due to advanced CKD. added prn hydralazine along with hydralazine 50 mg bid Monitor Input/Output, daily weights and renal function with basic metabolic panel diuresis with IV lasix added iron, MVI and calcitriol continue with sodium bicarb supplements repeat labs in am avoid phlebotomy or IV line in non-dominant arm. AV access placement if/once pt agreeable for dialysis Dose meds/antibiotics for reduced GFR. Avoid fleets enema/magnesium based laxatives. Avoid nephrotoxins/NSAIDs/ iodinated contrast (unless needed emergently) Glycemic control Further work up/management as per primary team Thanks for allowing me to participate in care of your patient. Will follow patient with you. Please call if any Qs. had d/w team Dr Rashid Morales Office: [phone] Chief Complaint; low sugar Reason for consult: CKD management HPI: Pt is a 62 M with hx of diabetes Mellitus ( years), hypertension (years) alcohol in past, anemia, CKD 4/5 presented with complaints of low blood sugar and AMS with it. now better. Denies OTC/herbal meds or NSAIDs No recent iodinated contrast exposure. No obvious episodes of low BP. renal consult for CKD management pt feels beter. denies SOB/chest pain has hoarsenes of voice, says due to stroke in past ROS: pt not much interested in discussing. denies CP/SOB All other negative except as mentioned in HPI Physical Examination: General Appearance: Comfortable, in no acute respiratory distress, co-operative . Vitals reviewed and noted as below Head; Atraumatic, normocephalic ENT: no ulcers no thrush. Tongue is midline. Oropharynx: no rash or ulcers. hoarse voice EYES: Pupils are equal, round and reactive to light accommodation. Eye muscles and extraocular movement intact. Sclera is anicteric. Neck; supple no lymphadenopathy, no thyromegaly or bruit Lungs: Normal respiratory rate/effort. Breath sounds bilateral equal and basal crackles+ Heart: Normal rate. s1s2 normal. No rub or gallop. Extremities: 1-2+ edema. No varicose veins Neurological: Patient is alert, awake and oriented to person, place and time. No focal deficit. Strength bilateral appropriate and equal Skin: Warm and dry. Normal turgor. No rash. Palpitation: Normal elasticity for age Abdomen: Abdomen is soft. Bowel sounds +. There is no abdominal tenderness, no guarding/rigidity no organomegaly Psych: limited insight and flat affect/mood MSK: no joint tenderness or swelling. Digits and nails normal, no deformity : kidney or bladder not palpable Labs/imaging reviewed. Past medical history, past surgical history, family history, social history, allergy reviewed and noted as below Family hx: no hx of CKD. Rest non-contributory renal sono: b/l cysts Vit D <12.8 PTH 1094 Hep B/C/HIV neg UA 2+ protein with 3.8 gram proteinuria and 1.6 gram albuminuria TSAT 22% Ferritin 28 Objective - Vital Signs/Intake and Output Vital Signs (last 24 hours): Temp Pulse Resp BP Pulse Ox 97.5 F L 68 20 143/78 98 05/06/18 09:30 05/06/18 14:00 05/06/18 09:30 05/06/18 09:39 05/06/18 09:30 Intake and Output: 05/06/18 05/06/18 06:59 18:59 Intake Total 350 550 Output Total 1600 Balance 350 -1050 - Medications Medications: Current Medications Allopurinol (Zyloprim) 100 mg PO DAILY [facility] Last Admin: 05/06/18 14:36 Dose: 100 mg Amlodipine Besylate (Norvasc) 10 mg PO DAILY [facility] Last Admin: 05/06/18 09:39 Dose: 10 mg Aspirin (Aspirin Chewable) 81 mg PO DAILY [facility] Last Admin: 05/06/18 09:39 Dose: 81 mg Calcitriol (Rocaltrol) 0.25 mcg PO DAILY [facility] Last Admin: 05/06/18 09:39 Dose: 0.25 mcg Carvedilol (Coreg) 25 mg PO BID [facility] Last Admin: 05/06/18 09:39 Dose: 25 mg Clonazepam (Klonopin) 0.5 mg PO TID [facility] Last Admin: 05/06/18 14:34 Dose: 0.5 mg Escitalopram Oxalate (Lexapro) 5 mg PO DAILY [facility] Last Admin: 05/06/18 14:28 Dose: 5 mg Ferrous Gluconate (Fergon) 324 mg PO TID [facility] Last Admin: 05/06/18 13:56 Dose: 324 mg Finasteride (Proscar) 5 mg PO DAILY [facility] Last Admin: 05/06/18 14:34 Dose: 5 mg Furosemide (Lasix) 40 mg IVP Q12 [facility] Last Admin: 05/06/18 09:38 Dose: 40 mg Heparin Sodium (Porcine) (Heparin) 5,000 units SC Q12 [facility] Last Admin: 05/06/18 12:21 Dose: Not Given Hydralazine HCl (Apresoline) 25 mg PO Q4 PRN PRN Reason: Other Hydralazine HCl (Apresoline) 50 mg PO BID [facility] Last Admin: 05/06/18 09:39 Dose: 50 mg Ceftriaxone Sodium 1 gm/ (Sodium Chloride) 100 mls @ 100 mls/hr IVPB Q24H [facility]; Protocol Last Admin: 05/05/18 19:00 Dose: 100 mls/hr Rosuvastatin Calcium (Crestor) 5 mg PO HS [facility] Last Admin: 05/05/18 22:54 Dose: 5 mg Sevelamer Carbonate (Renvela) 800 mg PO TIDCC [facility] Last Admin: 05/06/18 12:00 Dose: 800 mg Sodium Bicarbonate (Sodium Bicarbonate Tab) 1,300 mg PO BID [facility] Last Admin: 05/06/18 09:39 Dose: 1,300 mg Tamsulosin HCl (Flomax) 0.4 mg PO DAILY [facility] Last Admin: 05/06/18 09:39 Dose: 0.4 mg Vitamin B Complex/Vit C/Folic Acid (Nephro-Socorro) 1 tab PO 0800 [facility] Last Admin: 05/06/18 08:21 Dose: 1 tab - Labs Labs: 05/04/18 07:20 05/04/18 08:05
--- NOTE | 2018-05-06 19:41 | CP.PCM.PN ---
Subjective - Date & Time of Evaluation Date of Evaluation: 05/06/18 Time of Evaluation: 19:41 Objective - Vital Signs/Intake and Output Vital Signs (last 24 hours): Temp Pulse Resp BP Pulse Ox 98.4 F 74 20 175/77 H 95 05/06/18 15:00 05/06/18 15:50 05/06/18 15:00 05/06/18 15:00 05/06/18 15:00 Intake and Output: 05/06/18 05/07/18 18:59 06:59 Intake Total 550 Output Total 1600 Balance -1050 - Medications Medications: Current Medications Allopurinol (Zyloprim) 100 mg PO DAILY [facility] Last Admin: 05/06/18 14:36 Dose: 100 mg Amlodipine Besylate (Norvasc) 10 mg PO DAILY [facility] Last Admin: 05/06/18 09:39 Dose: 10 mg Aspirin (Aspirin Chewable) 81 mg PO DAILY [facility] Last Admin: 05/06/18 09:39 Dose: 81 mg Calcitriol (Rocaltrol) 0.25 mcg PO DAILY [facility] Last Admin: 05/06/18 09:39 Dose: 0.25 mcg Carvedilol (Coreg) 25 mg PO BID [facility] Last Admin: 05/06/18 09:39 Dose: 25 mg Clonazepam (Klonopin) 0.5 mg PO TID [facility] Last Admin: 05/06/18 14:34 Dose: 0.5 mg Escitalopram Oxalate (Lexapro) 5 mg PO DAILY [facility] Last Admin: 05/06/18 14:28 Dose: 5 mg Ferrous Gluconate (Fergon) 324 mg PO TID [facility] Last Admin: 05/06/18 13:56 Dose: 324 mg Finasteride (Proscar) 5 mg PO DAILY [facility] Last Admin: 05/06/18 14:34 Dose: 5 mg Furosemide (Lasix) 40 mg IVP Q12 [facility] Last Admin: 05/06/18 09:38 Dose: 40 mg Heparin Sodium (Porcine) (Heparin) 5,000 units SC Q12 [facility] Last Admin: 05/06/18 12:21 Dose: Not Given Hydralazine HCl (Apresoline) 25 mg PO Q4 PRN PRN Reason: Other Hydralazine HCl (Apresoline) 50 mg PO BID [facility] Last Admin: 05/06/18 09:39 Dose: 50 mg Ceftriaxone Sodium 1 gm/ (Sodium Chloride) 100 mls @ 100 mls/hr IVPB Q24H [facility]; Protocol Last Admin: 05/06/18 17:04 Dose: 100 mls/hr Rosuvastatin Calcium (Crestor) 5 mg PO HS [facility] Last Admin: 05/05/18 22:54 Dose: 5 mg Sevelamer Carbonate (Renvela) 800 mg PO TIDCC [facility] Last Admin: 05/06/18 12:00 Dose: 800 mg Sodium Bicarbonate (Sodium Bicarbonate Tab) 1,300 mg PO BID [facility] Last Admin: 05/06/18 09:39 Dose: 1,300 mg Tamsulosin HCl (Flomax) 0.4 mg PO DAILY [facility] Last Admin: 05/06/18 09:39 Dose: 0.4 mg Vitamin B Complex/Vit C/Folic Acid (Nephro-Socorro) 1 tab PO 0800 [facility] Last Admin: 05/06/18 08:21 Dose: 1 tab - Labs Labs: 05/04/18 07:20 05/04/18 08:05
--- NOTE | 2018-05-06 22:04 | CARD ---
APPROVED REPORT Date of service: 05/04/2018 EKG Measurement Heart [id number] <Conclusion> Atrial fibrillation Left axis deviation Moderate voltage criteria for LVH, may be normal variant Anteroseptal infarct, age undetermined ST & T wave abnormality, consider lateral ischemia Abnormal ECG
[2018-05-07] MEDS: Multivitamin Vitamin B Complex (Nephro-Vite) Tab PO SCH (12:00)
--- NOTE | 2018-05-07 12:37 | CP.PCM.PN ---
Subjective - Date & Time of Evaluation Date of Evaluation: 05/07/18 Time of Evaluation: 12:32 - Subjective Subjective: Nephrology Consultation Note: Assessment: Stable Hypoglycemia with AMS HTN urgency Diabetic chronic Kidney Disease (E11.22) Hypertensive Chronic Kidney Disease (I12.9) Chronic Kidney Disease (N18.5) Stage 5 with 3800 mg proteinuria (R80.9) likely due to DM/HTN Anemia (D64.9), Hyperphosphatemia (E83.39), Secondary Hyperparathyroidism (E21.1), HTN (I12.9), Vit D def Plan likely need for renal replacement therapy in near future d/w patient, he refused for dialysis. pt says that his sister will come to get him and he would go and rather in [facility]. psychiatry consult to assess his decisional capacity and suggested pt lack the decisional capacity. Hypertension control with meds as ordered. Maintain hemodynamics stable. Avoid hypotension. Patient not on ACEI/ARB due to advanced CKD. added prn hydralazine along with hydralazine 100 mg bid Monitor Input/Output, daily weights and renal function with basic metabolic panel diuresis with IV lasix added iron, MVI and calcitriol continue with sodium bicarb supplements repeat labs ordered, pt refusing. avoid phlebotomy or IV line in non-dominant arm. AV access placement if/once pt agreeable for dialysis d/w sister about pt refusal but lack capacity to do so, she said to have spoken with her brother but says can't do anything if he refuses Dose meds/antibiotics for reduced GFR. Avoid fleets enema/magnesium based laxatives. Avoid nephrotoxins/NSAIDs/ iodinated contrast (unless needed emergently) Glycemic control Further work up/management as per primary team Thanks for allowing me to participate in care of your patient. Will follow patient with you. Please call if any Qs. had d/w team and sister [phone] Rashid Morales Office: [phone] Chief Complaint; low sugar Reason for consult: CKD management HPI: Pt is a 62 M with hx of diabetes Mellitus ( years), hypertension (years) alcohol in past, anemia, CKD 4/5 presented with complaints of low blood sugar and AMS with it. now better. Denies OTC/herbal meds or NSAIDs No recent iodinated contrast exposure. No obvious episodes of low BP. renal consult for CKD management pt feels beter. denies SOB/chest pain has hoarsenes of voice, says due to stroke in past ROS: pt not much interested in discussing. denies CP/SOB All other negative except as mentioned in HPI Physical Examination: General Appearance: Comfortable, in no acute respiratory distress, co-operative . Vitals reviewed and noted as below Head; Atraumatic, normocephalic ENT: no ulcers no thrush. Tongue is midline. Oropharynx: no rash or ulcers. hoarse voice EYES: Pupils are equal, round and reactive to light accommodation. Eye muscles and extraocular movement intact. Sclera is anicteric. Neck; supple no lymphadenopathy, no thyromegaly or bruit Lungs: Normal respiratory rate/effort. Breath sounds bilateral equal and basal crackles+ Heart: Normal rate. s1s2 normal. No rub or gallop. Extremities: 1-2+ edema. No varicose veins Neurological: Patient is alert, awake and oriented to person, place and time. chronic rt side weakness Skin: Warm and dry. Normal turgor. No rash. Palpitation: Normal elasticity for age Abdomen: Abdomen is soft. Bowel sounds +. There is no abdominal tenderness, no guarding/rigidity no organomegaly Psych: lack insight and flat affect/mood MSK: no joint tenderness or swelling. Digits and nails normal, no deformity : kidney or bladder not palpable Labs/imaging reviewed. Past medical history, past surgical history, family history, social history, allergy reviewed and noted as below Family hx: no hx of CKD. Rest non-contributory renal sono: b/l cysts Vit D <12.8 PTH 1094 Hep B/C/HIV neg UA 2+ protein with 3.8 gram proteinuria and 1.6 gram albuminuria TSAT 22% Ferritin 28 Objective - Vital Signs/Intake and Output Vital Signs (last 24 hours): Temp Pulse Resp BP Pulse Ox 97.6 F 70 20 170/86 H 100 05/07/18 08:44 05/07/18 08:44 05/07/18 08:44 05/07/18 12:00 05/07/18 08:44 Intake and Output: 05/07/18 05/07/18 06:59 18:59 Intake Total 400 Output Total 1000 Balance -600 - Medications Medications: Current Medications Allopurinol (Zyloprim) 100 mg PO DAILY [facility] Last Admin: 05/07/18 12:19 Dose: 100 mg Amlodipine Besylate (Norvasc) 10 mg PO DAILY [facility] Last Admin: 05/07/18 12:18 Dose: 10 mg Aspirin (Aspirin Chewable) 81 mg PO DAILY [facility] Last Admin: 05/07/18 11:59 Dose: 81 mg Calcitriol (Rocaltrol) 0.25 mcg PO DAILY [facility] Last Admin: 05/07/18 11:57 Dose: 0.25 mcg Carvedilol (Coreg) 25 mg PO BID [facility] Last Admin: 05/07/18 12:00 Dose: 25 mg Clonazepam (Klonopin) 0.5 mg PO TID [facility] Last Admin: 05/07/18 11:59 Dose: 0.5 mg Escitalopram Oxalate (Lexapro) 5 mg PO DAILY [facility] Last Admin: 05/07/18 12:00 Dose: 5 mg Ferrous Gluconate (Fergon) 324 mg PO TID [facility] Last Admin: 05/07/18 12:00 Dose: 324 mg Finasteride (Proscar) 5 mg PO DAILY [facility] Last Admin: 05/07/18 11:58 Dose: 5 mg Furosemide (Lasix) 40 mg IVP Q12 [facility] Last Admin: 05/07/18 12:00 Dose: 40 mg Heparin Sodium (Porcine) (Heparin) 5,000 units SC Q12 [facility] Last Admin: 05/07/18 11:58 Dose: 5,000 units Hydralazine HCl (Apresoline) 25 mg PO Q4 PRN PRN Reason: Other Hydralazine HCl (Apresoline) 100 mg PO BID [facility] Last Admin: 05/07/18 12:03 Dose: 100 mg Ceftriaxone Sodium 1 gm/ (Sodium Chloride) 100 mls @ 100 mls/hr IVPB Q24H [facility]; Protocol Last Admin: 05/06/18 17:04 Dose: 100 mls/hr Rosuvastatin Calcium (Crestor) 5 mg PO HS [facility] Last Admin: 05/06/18 23:21 Dose: 5 mg Sevelamer Carbonate (Renvela) 800 mg PO TIDCC [facility] Last Admin: 05/07/18 11:57 Dose: 800 mg Sodium Bicarbonate (Sodium Bicarbonate Tab) 1,300 mg PO BID [facility] Last Admin: 05/07/18 11:56 Dose: 1,300 mg Tamsulosin HCl (Flomax) 0.4 mg PO DAILY [facility] Last Admin: 05/07/18 12:00 Dose: 0.4 mg Vitamin B Complex/Vit C/Folic Acid (Nephro-Socorro) 1 tab PO 0800 [facility] Last Admin: 05/07/18 12:00 Dose: 1 tab - Labs Labs: 05/04/18 07:20 05/04/18 08:05
--- NOTE | 2018-05-07 13:20 | PCM.PYCHPN ---
Psychiatric Progress Note - Psychiatric Progress Note Patient seen today, length of contact: 15 min Patient Chief Complaint: "I am tired" Problems Identified/Issues Discussed: The pt is seen, chart reviewed, case discussed with staff. Support and psychoeducation given, No new symptoms reported, improving slowly and needs more time No SEs from medications Still depressed, irtae and more drowsy - Hold klonopin if too sedated Medication Change: Yes (increase lexapro to 10 mg) Medical Record Reviewed: Yes Mental Status Examination - Cognitive Function Orientation: Person, Place, Time Memory: Impaired Attention: Poor Concentration: Poor Association: Loose Fund of Knowledge: Poor - Mood Mood: Depressed, Anxious, Other (Irate, at times angry) - Affect Affect: Constricted - Speech Speech: Slurred - Language Language: Dysarthria - Formal Thought Process Formal Thought Process: Loosening of associations - Suicidal Ideation Suicidal Ideation: No - Homicidal Ideation Homicidal Ideation: No Goal/Treatment Plan - Goal/Treatment Plan Need for Continued Stay: Discharge may exacerbated symptoms, Severe functional impairment Progress Toward Problem(s) and Goals/Treatment Plan: The patient does not have capacity at this time to make medical decisions or sign out AMA. He has cognitive decline as well as depression, both of which cloud his judgment and decision-making capacity. With improvement this may change. Close monitoring Lexapro for depression Klonopin for anxiety Support daily Education daily on his treatment and risks Family contact to gather their support
--- NOTE | 2018-05-07 16:01 | CP.PCM.PN ---
Subjective - Date & Time of Evaluation Date of Evaluation: 05/07/18 Time of Evaluation: 09:30 - Subjective Subjective: clinically same Objective - Vital Signs/Intake and Output Vital Signs (last 24 hours): Temp Pulse Resp BP Pulse Ox 98.1 F 70 18 153/72 H 97 05/07/18 13:00 05/07/18 08:44 05/07/18 13:00 05/07/18 13:00 05/07/18 13:00 Intake and Output: 05/07/18 05/07/18 06:59 18:59 Intake Total 400 Output Total 1000 Balance -600 - Medications Medications: Current Medications Allopurinol (Zyloprim) 100 mg PO DAILY [facility] Last Admin: 05/07/18 12:19 Dose: 100 mg Amlodipine Besylate (Norvasc) 10 mg PO DAILY [facility] Last Admin: 05/07/18 12:18 Dose: 10 mg Aspirin (Aspirin Chewable) 81 mg PO DAILY [facility] Last Admin: 05/07/18 11:59 Dose: 81 mg Calcitriol (Rocaltrol) 0.25 mcg PO DAILY [facility] Last Admin: 05/07/18 11:57 Dose: 0.25 mcg Carvedilol (Coreg) 25 mg PO BID [facility] Last Admin: 05/07/18 12:00 Dose: 25 mg Clonazepam (Klonopin) 0.5 mg PO TID [facility] Last Admin: 05/07/18 14:54 Dose: 0.5 mg Escitalopram Oxalate (Lexapro) 10 mg PO DAILY [facility] Ferrous Gluconate (Fergon) 324 mg PO TID [facility] Last Admin: 05/07/18 14:54 Dose: 324 mg Finasteride (Proscar) 5 mg PO DAILY [facility] Last Admin: 05/07/18 11:58 Dose: 5 mg Furosemide (Lasix) 40 mg IVP Q12 [facility] Last Admin: 05/07/18 12:00 Dose: 40 mg Heparin Sodium (Porcine) (Heparin) 5,000 units SC Q12 [facility] Last Admin: 05/07/18 11:58 Dose: 5,000 units Hydralazine HCl (Apresoline) 25 mg PO Q4 PRN PRN Reason: Other Hydralazine HCl (Apresoline) 100 mg PO BID [facility] Last Admin: 05/07/18 12:03 Dose: 100 mg Ceftriaxone Sodium 1 gm/ (Sodium Chloride) 100 mls @ 100 mls/hr IVPB Q24H [facility]; Protocol Last Admin: 05/06/18 17:04 Dose: 100 mls/hr Rosuvastatin Calcium (Crestor) 5 mg PO HS [facility] Last Admin: 05/06/18 23:21 Dose: 5 mg Sevelamer Carbonate (Renvela) 800 mg PO TIDCC [facility] Last Admin: 05/07/18 11:57 Dose: 800 mg Sodium Bicarbonate (Sodium Bicarbonate Tab) 1,300 mg PO BID [facility] Last Admin: 05/07/18 11:56 Dose: 1,300 mg Tamsulosin HCl (Flomax) 0.4 mg PO DAILY [facility] Last Admin: 05/07/18 12:00 Dose: 0.4 mg Vitamin B Complex/Vit C/Folic Acid (Nephro-Socorro) 1 tab PO 0800 [facility] Last Admin: 05/07/18 12:00 Dose: 1 tab - Labs Labs: 05/04/18 07:20 05/04/18 08:05 - Constitutional Appears: Well - Head Exam Head Exam: ATRAUMATIC, NORMAL INSPECTION, NORMOCEPHALIC - Eye Exam Eye Exam: EOMI, Normal appearance, PERRL Pupil Exam: NORMAL ACCOMODATION, PERRL - ENT Exam ENT Exam: Mucous Membranes Moist, Normal Exam - Neck Exam Neck Exam: Full ROM, Normal Inspection. absent: Lymphadenopathy - Respiratory Exam Respiratory Exam: Decreased Breath Sounds - Cardiovascular Exam Cardiovascular Exam: REGULAR RHYTHM, +S1, +S2 - GI/Abdominal Exam GI & Abdominal Exam: Soft, Diminished Bowel Sounds - Rectal Exam Rectal Exam: Deferred
[2018-05-08] MEDS: Multivitamin Vitamin B Complex (Nephro-Vite) Tab PO SCH (09:44)
--- NOTE | 2018-05-08 13:12 | PCM.PYCHPN ---
Psychiatric Progress Note - Psychiatric Progress Note Patient seen today, length of contact: 15 min Patient Chief Complaint: "I am OK" Problems Identified/Issues Discussed: The pt is seen, chart reviewed, case discussed with staff. Still depressed and slightly confused He now told me he lives with his mother not his but he doesn't know her number and the number in the chart is not active. Support given Psychoed given No SI, HI or del/hawk reported Medication Change: Yes Medical Record Reviewed: Yes Mental Status Examination - Cognitive Function Orientation: Person, Place, Time Memory: Impaired Attention: Poor Concentration: Poor Association: Loose Fund of Knowledge: Poor - Mood Mood: Depressed, Anxious, Other (Irate, at times angry) - Affect Affect: Constricted - Speech Speech: Slurred - Language Language: Dysarthria - Formal Thought Process Formal Thought Process: Loosening of associations - Suicidal Ideation Suicidal Ideation: No - Homicidal Ideation Homicidal Ideation: No Goal/Treatment Plan - Goal/Treatment Plan Need for Continued Stay: Discharge may exacerbated symptoms, Severe functional impairment Progress Toward Problem(s) and Goals/Treatment Plan: The patient does not have capacity at this time to make medical decisions or sign out AMA. He has cognitive decline as well as depression, both of which cloud his judgment and decision-making capacity. With improvement this may change. Close monitoring Alexeiapro for depression Isidoro for anxiety Support daily Education daily on his treatment and risks Family contact to gather their support
--- NOTE | 2018-05-08 15:14 | CP.PCM.PN ---
Subjective - Date & Time of Evaluation Date of Evaluation: 05/08/18 Time of Evaluation: 15:14 - Subjective Subjective: Nephrology Consultation Note: Assessment: Stable Hypoglycemia with AMS HTN urgency Diabetic chronic Kidney Disease (E11.22) Hypertensive Chronic Kidney Disease (I12.9) Chronic Kidney Disease (N18.5) Stage 5 with 3800 mg proteinuria (R80.9) likely due to DM/HTN Anemia (D64.9), Hyperphosphatemia (E83.39), Secondary Hyperparathyroidism (E21.1), HTN (I12.9), Vit D def Plan likely need for renal replacement therapy in near future d/w patient, he refused for dialysis. pt says that his sister will come to get him and [facility] would [facility] psychiatry consult to assess his decisional capacity and suggested pt lack the decisional capacity. Hypertension control with meds as ordered. Maintain hemodynamics stable. Avoid hypotension. Patient not on ACEI/ARB due to advanced CKD. added prn hydralazine along with hydralazine 100 mg bid Monitor Input/Output, daily weights and renal function with basic metabolic panel diuresis with IV lasix added iron, MVI and calcitriol continue with sodium bicarb supplements repeat labs ordered, pt refusing. avoid phlebotomy or IV line in non-dominant arm. AV access placement if/once pt agreeable for dialysis d/w sister about pt refusal but lack capacity to do so, she said to have spoken with her brother but says can't do anything if he refuses Dose meds/antibiotics for reduced GFR. Avoid fleets enema/magnesium based laxatives. Avoid nephrotoxins/NSAIDs/ iodinated contrast (unless needed emergently) Glycemic control Further work up/management as per primary team Thanks for allowing me to participate in care of your patient. Will follow patient with you. Please call if any Qs. had d/w team and sister [phone] Rashid Morales Office: [phone] Chief Complaint; low sugar Reason for consult: CKD management HPI: Pt is a 62 M with hx of diabetes Mellitus ( years), hypertension (years) alcohol in past, anemia, CKD 4/5 presented with complaints of low blood sugar and AMS with it. now better. Denies OTC/herbal meds or NSAIDs No recent iodinated contrast exposure. No obvious episodes of low BP. renal consult for CKD management pt feels beter. denies SOB/chest pain has hoarsenes of voice, says due to stroke in past ROS: pt not much interested in discussing. denies CP/SOB All other negative except as mentioned in HPI Physical Examination: General Appearance: Comfortable, in no acute respiratory distress, co-operative . Vitals reviewed and noted as below Head; Atraumatic, normocephalic ENT: no ulcers no thrush. Tongue is midline. Oropharynx: no rash or ulcers. hoarse voice EYES: Pupils are equal, round and reactive to light accommodation. Eye muscles and extraocular movement intact. Sclera is anicteric. Neck; supple no lymphadenopathy, no thyromegaly or bruit Lungs: Normal respiratory rate/effort. Breath sounds bilateral equal and basal crackles+ Heart: Normal rate. s1s2 normal. No rub or gallop. Extremities: 1+ edema. No varicose veins Neurological: Patient is alert, awake and oriented to person, place and time. chronic rt side weakness Skin: Warm and dry. Normal turgor. No rash. Palpitation: Normal elasticity for age Abdomen: Abdomen is soft. Bowel sounds +. There is no abdominal tenderness, no guarding/rigidity no organomegaly Psych: lack insight and flat affect/mood MSK: no joint tenderness or swelling. Digits and nails normal, no deformity : kidney or bladder not palpable Labs/imaging reviewed. Past medical history, past surgical history, family history, social history, allergy reviewed and noted as below Family hx: no hx of CKD. Rest non-contributory renal sono: b/l cysts Vit D <12.8 PTH 1094 Hep B/C/HIV neg UA 2+ protein with 3.8 gram proteinuria and 1.6 gram albuminuria TSAT 22% Ferritin 28 Objective - Vital Signs/Intake and Output Vital Signs (last 24 hours): Temp Pulse Resp BP Pulse Ox 98.1 F 66 20 166/80 H 98 05/08/18 08:13 05/08/18 08:13 05/08/18 08:13 05/08/18 09:44 05/08/18 08:13 Intake and Output: 05/08/18 05/08/18 06:59 18:59 Intake Total 580 Output Total 1300 Balance -720 - Medications Medications: Current Medications Allopurinol (Zyloprim) 100 mg PO DAILY [facility] Last Admin: 05/08/18 09:44 Dose: 100 mg Amlodipine Besylate (Norvasc) 10 mg PO DAILY [facility] Last Admin: 05/08/18 09:43 Dose: 10 mg Aspirin (Aspirin Chewable) 81 mg PO DAILY [facility] Last Admin: 05/08/18 09:44 Dose: 81 mg Calcitriol (Rocaltrol) 0.25 mcg PO DAILY [facility] Last Admin: 05/08/18 09:43 Dose: 0.25 mcg Carvedilol (Coreg) 25 mg PO BID [facility] Last Admin: 05/08/18 09:44 Dose: 25 mg Clonazepam (Klonopin) 0.5 mg PO TID [facility] Last Admin: 05/08/18 13:31 Dose: 0.5 mg Escitalopram Oxalate (Lexapro) 10 mg PO DAILY [facility] Last Admin: 05/08/18 09:49 Dose: 10 mg Ferrous Gluconate (Fergon) 324 mg PO TID [facility] Last Admin: 05/08/18 13:30 Dose: 324 mg Finasteride (Proscar) 5 mg PO DAILY [facility] Last Admin: 05/08/18 09:49 Dose: 5 mg Furosemide (Lasix) 40 mg PO BID [facility] Hydralazine HCl (Apresoline) 25 mg PO Q4 PRN PRN Reason: Other Hydralazine HCl (Apresoline) 100 mg PO BID [facility] Last Admin: 05/08/18 09:43 Dose: 100 mg Ceftriaxone Sodium 1 gm/ (Sodium Chloride) 100 mls @ 100 mls/hr IVPB Q24H [facility]; Protocol Last Admin: 05/07/18 17:35 Dose: Not Given Rosuvastatin Calcium (Crestor) 5 mg PO HS [facility] Last Admin: 05/07/18 21:34 Dose: 5 mg Sevelamer Carbonate (Renvela) 800 mg PO TIDCC [facility] Last Admin: 05/08/18 13:30 Dose: 800 mg Sodium Bicarbonate (Sodium Bicarbonate Tab) 1,300 mg PO BID [facility] Last Admin: 05/08/18 09:43 Dose: 1,300 mg Tamsulosin HCl (Flomax) 0.4 mg PO DAILY [facility] Last Admin: 05/08/18 09:44 Dose: 0.4 mg Vitamin B Complex/Vit C/Folic Acid (Nephro-Socorro) 1 tab PO 0800 [facility] Last Admin: 05/08/18 09:44 Dose: 1 tab - Labs Labs: 05/04/18 07:20 05/04/18 08:05
--- NOTE | 2018-05-08 21:13 | CP.PCM.PN ---
Subjective - Date & Time of Evaluation Date of Evaluation: 05/08/18 Time of Evaluation: 10:00 - Subjective Subjective: clinically same Objective - Vital Signs/Intake and Output Vital Signs (last 24 hours): Temp Pulse Resp BP Pulse Ox 975 F H 66 20 166/77 H 98 05/08/18 15:00 05/08/18 15:00 05/08/18 15:00 05/08/18 17:30 05/08/18 15:00 Intake and Output: 05/08/18 05/09/18 18:59 06:59 Intake Total 300 Output Total 1200 Balance -900 - Medications Medications: Current Medications Allopurinol (Zyloprim) 100 mg PO [facility]ILY [facility] Last Admin: 05/08/18 09:44 Dose: 100 mg Amlodipine Besylate (Norvasc) 10 mg PO DAILY [facility] Last Admin: 05/08/18 09:43 Dose: 10 mg Aspirin (Aspirin Chewable) 81 mg PO DAILY [facility] Last Admin: 05/08/18 09:44 Dose: 81 mg Calcitriol (Rocaltrol) 0.25 mcg PO DAILY [facility] Last Admin: 05/08/18 09:43 Dose: 0.25 mcg Carvedilol (Coreg) 25 mg PO BID [facility] Last Admin: 05/08/18 17:30 Dose: 25 mg Clonazepam (Klonopin) 0.5 mg PO TID [facility] Last Admin: 05/08/18 17:25 Dose: 0.5 mg Escitalopram Oxalate (Lexapro) 10 mg PO DAILY [facility] Last Admin: 05/08/18 09:49 Dose: 10 mg Ferrous Gluconate (Fergon) 324 mg PO TID [facility] Last Admin: 05/08/18 17:30 Dose: 324 mg Finasteride (Proscar) 5 mg PO DAILY [facility] Last Admin: 05/08/18 09:49 Dose: 5 mg Furosemide (Lasix) 40 mg PO BID [facility] Last Admin: 05/08/18 17:25 Dose: 40 mg Hydralazine HCl (Apresoline) 25 mg PO Q4 PRN PRN Reason: Other Hydralazine HCl (Apresoline) 100 mg PO BID [facility] Last Admin: 05/08/18 17:24 Dose: 100 mg Ceftriaxone Sodium 1 gm/ (Sodium Chloride) 100 mls @ 100 mls/hr IVPB Q24H [facility]; Protocol Last Admin: 05/08/18 17:31 Dose: 100 mls/hr Rosuvastatin Calcium (Crestor) 5 mg PO HS [facility] Last Admin: 05/07/18 21:34 Dose: 5 mg Sevelamer Carbonate (Renvela) 800 mg PO TIDCC [facility] Last Admin: 05/08/18 17:25 Dose: 800 mg Sodium Bicarbonate (Sodium Bicarbonate Tab) 1,300 mg PO BID [facility] Last Admin: 05/08/18 17:30 Dose: 1,300 mg Tamsulosin HCl (Flomax) 0.4 mg PO DAILY [facility] Last Admin: 05/08/18 09:44 Dose: 0.4 mg Vitamin B Complex/Vit C/Folic Acid (Nephro-Socorro) 1 tab PO 0800 [facility] Last Admin: 05/08/18 09:44 Dose: 1 tab - Labs Labs: 05/04/18 07:20 05/04/18 08:05
[2018-05-09 08:34] LABS: BASO # 0.1 K/uL (0.0-0.2); BASO % 0.9 % (0.0-2.0); EOS # 0.2 K/uL (0.0-0.7); EOS % 3.1 % (0.0-4.0); LYMPH % 12.4 % (20.0-40.0); MEAN CELL VOLUME 90.4 fL (80.0-94.0); MEAN CORPUSCULAR HGB CONC 34.3 g/dL (33.0-37.0); MEAN PLATELET VOLUME 7.5 fL (7.2-11.7); MONO # 0.7 K/uL (0.0-0.8); MONO % 9.2 % (0.0-10.0); NEUT % 74.4 % (50.0-75.0); NRBC % 0.1 % (0.0-2.0); RBC 3.04 Mil/uL (4.40-5.90); RED CELL DISTRIBUTION WIDTH 14.2 % (11.5-14.5)
[2018-05-09 08:43] LABS: HEMOGLOBIN 9.4 g/dL (12.0-18.0)
[2018-05-09] MEDS: Multivitamin Vitamin B Complex (Nephro-Vite) Tab PO SCH (10:14)
--- NOTE | 2018-05-09 15:18 | CP.PCM.PN ---
Subjective - Date & Time of Evaluation Date of Evaluation: 05/09/18 Time of Evaluation: 15:15 - Subjective Subjective: Nephrology Consultation Note: Assessment: Stable Hypoglycemia with AMS HTN urgency Diabetic chronic Kidney Disease (E11.22) Hypertensive Chronic Kidney Disease (I12.9) Chronic Kidney Disease (N18.5) Stage 5 with 3800 mg proteinuria (R80.9) likely due to DM/HTN Anemia (D64.9), Hyperphosphatemia (E83.39), Secondary Hyperparathyroidism (E21.1), HTN (I12.9), Vit D def Plan need for dialysis soon d/w patient, he refused for dialysis. psychiatry consult to assess his decisional capacity and suggested pt lack the decisional capacity. however it will be not possible to perform dialysis in this awake alert pt until unless he is agreeable for it. Hypertension control with meds as ordered. Maintain hemodynamics stable. Avoid hypotension. Patient not on ACEI/ARB due to advanced CKD. added prn hydralazine along with hydralazine 100 mg tid Monitor Input/Output, daily weights and renal function with basic metabolic panel diuresis with IV lasix added iron, MVI and calcitriol. epogen as ordered continue with sodium bicarb supplements avoid phlebotomy or IV line in non-dominant arm. AV access placement if/once pt agreeable for dialysis d/w sister about pt refusal but lack capacity to do so, she said to have spoken with her brother but says can't do anything if he refuses Dose meds/antibiotics for reduced GFR. Avoid fleets enema/magnesium based laxatives. Avoid nephrotoxins/NSAIDs/ iodinated contrast (unless needed emergently) Glycemic control Further work up/management as per primary team Thanks for allowing me to participate in care of your patient. Will follow patient with you. Please call if any Qs. had d/w team and sister [phone] Rashid Morales Office: [phone] Chief Complaint; low sugar Reason for consult: CKD management HPI: Pt is a 62 M with hx of diabetes Mellitus ( years), hypertension (years) alcohol in past, anemia, CKD 4/5 presented with complaints of low blood sugar and AMS with it. now better. Denies OTC/herbal meds or NSAIDs No recent iodinated contrast exposure. No obvious episodes of low BP. renal consult for CKD management pt feels beter. denies SOB/chest pain has hoarsenes/slurred speech, says due to stroke in past ROS: pt not much interested in discussing. denies CP/SOB All other negative except as mentioned in HPI Physical Examination: General Appearance: Comfortable, in no acute respiratory distress, co-operative . Vitals reviewed and noted as below Head; Atraumatic, normocephalic ENT: no ulcers no thrush. Tongue is midline. Oropharynx: no rash or ulcers. hoarse voice EYES: Pupils are equal, round and reactive to light accommodation. Eye muscles and extraocular movement intact. Sclera is anicteric. Neck; supple no lymphadenopathy, no thyromegaly or bruit Lungs: Normal respiratory rate/effort. Breath sounds bilateral equal and clearer Heart: Normal rate. s1s2 normal. No rub or gallop. Extremities: no edema. No varicose veins Neurological: Patient is alert, awake and oriented to person, place and time. chronic rt side weakness. slurred speech Skin: Warm and dry. Normal turgor. No rash. Palpitation: Normal elasticity for age Abdomen: Abdomen is soft. Bowel sounds +. There is no abdominal tenderness, no guarding/rigidity no organomegaly Psych: lack insight and flat affect/mood MSK: no joint tenderness or swelling. Digits and nails normal, no deformity : kidney or bladder not palpable Labs/imaging reviewed. Past medical history, past surgical history, family history, social history, allergy reviewed and noted as below Family hx: no hx of CKD. Rest non-contributory renal sono: b/l cysts Vit D <12.8 PTH 1094 Hep B/C/HIV neg UA 2+ protein with 3.8 gram proteinuria and 1.6 gram albuminuria TSAT 22% Ferritin 28 Objective - Vital Signs/Intake and Output Vital Signs (last 24 hours): Temp Pulse Resp BP Pulse Ox 97.3 F L 85 20 156/86 H 97 05/09/18 08:35 05/09/18 08:35 05/09/18 08:35 05/09/18 12:45 05/09/18 08:35 Intake and Output: 05/09/18 05/09/18 06:59 18:59 Intake Total 200 Output Total 1600 Balance -1400 - Medications Medications: Current Medications Allopurinol (Zyloprim) 100 mg PO DAILY [facility] Last Admin: 05/09/18 10:14 Dose: 100 mg Amlodipine Besylate (Norvasc) 10 mg PO DAILY [facility] Last Admin: 05/09/18 10:14 Dose: 10 mg Aspirin (Aspirin Chewable) 81 mg PO DAILY [facility] Last Admin: 05/09/18 10:14 Dose: 81 mg Calcitriol (Rocaltrol) 0.25 mcg PO DAILY [facility] Last Admin: 05/09/18 10:13 Dose: 0.25 mcg Carvedilol (Coreg) 25 mg PO BID [facility] Last Admin: 05/09/18 10:15 Dose: 25 mg Clonazepam (Klonopin) 0.5 mg PO TID [facility] Last Admin: 05/09/18 13:26 Dose: 0.5 mg Escitalopram Oxalate (Lexapro) 10 mg PO DAILY [facility] Last Admin: 05/09/18 10:14 Dose: 10 mg Ferrous Gluconate (Fergon) 324 mg PO TID [facility] Last Admin: 05/09/18 13:26 Dose: 324 mg Finasteride (Proscar) 5 mg PO DAILY [facility] Last Admin: 05/09/18 10:14 Dose: 5 mg Furosemide (Lasix) 40 mg PO BID [facility] Last Admin: 05/09/18 10:14 Dose: 40 mg Hydralazine HCl (Apresoline) 25 mg PO Q4 PRN PRN Reason: Other Last Admin: 05/09/18 05:28 Dose: 25 mg Hydralazine HCl (Apresoline) 100 mg PO TID [facility] Ceftriaxone Sodium 1 gm/ (Sodium Chloride) 100 mls @ 100 mls/hr IVPB Q24H [facility]; Protocol Last Admin: 05/08/18 17:31 Dose: 100 mls/hr Rosuvastatin Calcium (Crestor) 5 mg PO HS [facility] Last Admin: 05/08/18 21:55 Dose: 5 mg Sevelamer Carbonate (Renvela) 800 mg PO TIDCC [facility] Last Admin: 05/09/18 13:26 Dose: 800 mg Sodium Bicarbonate (Sodium Bicarbonate Tab) 1,300 mg PO BID [facility] Last Admin: 05/09/18 10:14 Dose: 1,300 mg Tamsulosin HCl (Flomax) 0.4 mg PO DAILY [facility] Last Admin: 05/09/18 10:14 Dose: 0.4 mg Vitamin B Complex/Vit C/Folic Acid (Nephro-Socorro) 1 tab PO 0800 [facility] Last Admin: 05/09/18 10:14 Dose: 1 tab - Labs Labs: 05/09/18 08:20 05/09/18 08:20
--- NOTE | 2018-05-09 19:50 | CP.PCM.PN ---
Subjective - Date & Time of Evaluation Date of Evaluation: 05/09/18 Time of Evaluation: 09:00 - Subjective Subjective: clinically same Objective - Vital Signs/Intake and Output Vital Signs (last 24 hours): Temp Pulse Resp BP Pulse Ox 97.6 F 69 20 159/76 H 95 05/09/18 15:00 05/09/18 15:00 05/09/18 15:00 05/09/18 18:42 05/09/18 15:00 - Medications Medications: Current Medications Allopurinol (Zyloprim) 100 mg PO DAILY [facility] Last Admin: 05/09/18 10:14 Dose: 100 mg Amlodipine Besylate (Norvasc) 10 mg PO DAILY [facility] Last Admin: 05/09/18 10:14 Dose: 10 mg Aspirin (Aspirin Chewable) 81 mg PO DAILY [facility] Last Admin: 05/09/18 10:14 Dose: 81 mg Calcitriol (Rocaltrol) 0.25 mcg PO DAILY [facility] Last Admin: 05/09/18 10:13 Dose: 0.25 mcg Carvedilol (Coreg) 25 mg PO BID [facility] Last Admin: 05/09/18 18:42 Dose: 25 mg Clonazepam (Klonopin) 0.5 mg PO TID [facility] Last Admin: 05/09/18 13:26 Dose: 0.5 mg Epoetin Nam (Procrit) 4,[address] [facility] Escitalopram Oxalate (Lexapro) 10 mg PO DAILY [facility] Last Admin: 05/09/18 10:14 Dose: 10 mg Ferrous Gluconate (Fergon) 324 mg PO TID [facility] Last Admin: 05/09/18 18:35 Dose: 324 mg Finasteride (Proscar) 5 mg PO DAILY [facility] Last Admin: 05/09/18 10:14 Dose: 5 mg Furosemide (Lasix) 40 mg PO BID [facility] Last Admin: 05/09/18 18:42 Dose: 40 mg Hydralazine HCl (Apresoline) 25 mg PO Q4 PRN PRN Reason: Other Last Admin: 05/09/18 05:28 Dose: 25 mg Hydralazine HCl (Apresoline) 100 mg PO TID [facility] Last Admin: 05/09/18 18:41 Dose: 100 mg Rosuvastatin Calcium (Crestor) 5 mg PO [facility] Last Admin: 05/08/18 21:55 Dose: 5 mg Sevelamer Carbonate (Renvela) 800 mg PO TIDCC [facility] Last Admin: 05/09/18 18:00 Dose: 800 mg Sodium Bicarbonate (Sodium Bicarbonate Tab) 1,300 mg PO BID [facility] Last Admin: 05/09/18 18:35 Dose: 1,300 mg Tamsulosin HCl (Flomax) 0.4 mg PO DAILY [facility] Last Admin: 05/09/18 10:14 Dose: 0.4 mg Vitamin B Complex/Vit C/Folic Acid (Nephro-Socorro) 1 tab PO 0800 [facility] Last Admin: 05/09/18 10:14 Dose: 1 tab - Labs Labs: 05/09/18 08:20 05/09/18 08:20 - Constitutional Appears: Well - Head Exam Head Exam: ATRAUMATIC, NORMAL INSPECTION, NORMOCEPHALIC - Eye Exam Eye Exam: EOMI, Normal appearance, PERRL Pupil Exam: NORMAL ACCOMODATION, PERRL - ENT Exam ENT Exam: Mucous Membranes Moist, Normal Exam - Neck Exam Neck Exam: Full ROM, Normal Inspection. absent: Lymphadenopathy - Respiratory Exam Respiratory Exam: Decreased Breath Sounds - Cardiovascular Exam Cardiovascular Exam: REGULAR RHYTHM, +S1, +S2 - GI/Abdominal Exam GI & Abdominal Exam: Soft, Diminished Bowel Sounds - Rectal Exam Rectal Exam: Deferred
[2018-05-10] MEDS ORDERED: Epoetin Alfa Dialysis 40000 UNIT/ml Inj IV SCH (09:00)
[2018-05-10] MEDS ORDERED: EPOETIN ALFA 4,000 UNIT/ML ML Dialysis SC SCH (09:26)
[2018-05-10] MEDS: Multivitamin Vitamin B Complex (Nephro-Vite) Tab PO SCH (09:48)
--- NOTE | 2018-05-10 10:11 | PCM.PYCHPN ---
Psychiatric Progress Note - Psychiatric Progress Note Patient seen today, length of contact: 16 min Patient Chief Complaint: "I am OK" Problems Identified/Issues Discussed: The pt is seen, chart reviewed, case discussed with staff. No change in status; still depressed, still saying he does not care if he lives or dies. He cannot verbalize why, likely he is tired of his medical issues, many hospitalizations... His sister was contacted by medical staff and she stated she cannot help much as he is insisting on refusing treatment. He is on antidepressant and anxiety medication Seems a little calmer but not much yet Still forgetful and slightly disoriented, which will get worse as he refuses tx (he has kidney failure) Medication Change: No Medical Record Reviewed: Yes Mental Status Examination - Cognitive Function Orientation: Person, Place, Time Memory: Impaired Attention: Poor Concentration: Poor Association: Loose Fund of Knowledge: Poor - Mood Mood: Depressed, Anxious, Other (Irate, at times angry) - Affect Affect: Constricted - Speech Speech: Slurred - Language Language: Dysarthria - Formal Thought Process Formal Thought Process: Loosening of associations - Suicidal Ideation Suicidal Ideation: No - Homicidal Ideation Homicidal Ideation: No Goal/Treatment Plan - Goal/Treatment Plan Need for Continued Stay: Discharge may exacerbated symptoms, Severe functional impairment Progress Toward Problem(s) and Goals/Treatment Plan: The patient does not have capacity at this time to make medical decisions or sign out AMA. He has cognitive decline as well as depression, both of which cloud his judgment and decision-making capacity. With improvement this may change. Close monitoring Lexapro for depression Kyleonopin for anxiety Support daily Education daily on his treatment and risks Family contact to gather their support
--- NOTE | 2018-05-10 14:06 | CP.PCM.PN ---
Subjective - Date & Time of Evaluation Date of Evaluation: 05/10/18 Time of Evaluation: 10:30 - Subjective Subjective: clinically same Objective - Vital Signs/Intake and Output Vital Signs (last 24 hours): Temp Pulse Resp BP Pulse Ox 98.6 F 84 20 164/90 H 97 05/10/18 07:00 05/10/18 07:00 05/10/18 07:00 05/10/18 09:48 05/10/18 07:00 Intake and Output: 05/10/18 05/10/18 06:59 18:59 Intake Total 300 Output Total 1150 Balance -850 - Medications Medications: Current Medications Allopurinol (Zyloprim) 100 mg PO DAILY [facility] Last Admin: 05/10/18 09:48 Dose: 100 mg Amlodipine Besylate (Norvasc) 10 mg PO DAILY [facility] Last Admin: 05/10/18 09:47 Dose: 10 mg Aspirin (Aspirin Chewable) 81 mg PO DAILY [facility] Last Admin: 05/10/18 09:48 Dose: 81 mg Calcitriol (Rocaltrol) 0.25 mcg PO DAILY [facility] Last Admin: 05/10/18 09:48 Dose: 0.25 mcg Carvedilol (Coreg) 25 mg PO BID [facility] Last Admin: 05/10/18 09:48 Dose: 25 mg Clonazepam (Klonopin) 0.5 mg PO TID [facility] Last Admin: 05/10/18 13:41 Dose: 0.5 mg Epoetin Nam (Procrit) 4,000 unit SC F [facility] Escitalopram Oxalate (Lexapro) 10 mg PO DAILY [facility] Last Admin: 05/10/18 09:47 Dose: 10 mg Ferrous Gluconate (Fergon) 324 mg PO TID [facility] Last Admin: 05/10/18 13:43 Dose: 324 mg Finasteride (Proscar) 5 mg PO DAILY [facility] Last Admin: 05/10/18 09:48 Dose: 5 mg Furosemide (Lasix) 40 mg PO BID [facility] Last Admin: 05/10/18 09:47 Dose: 40 mg Hydralazine HCl (Apresoline) 25 mg PO Q4 PRN PRN Reason: Other Last Admin: 05/09/18 05:28 Dose: 25 mg Hydralazine HCl (Apresoline) 100 mg PO TID [facility] Last Admin: 05/10/18 13:41 Dose: 100 mg Minoxidil (Minoxidil) 2.5 mg PO DAILY [facility] Last Admin: 05/10/18 13:41 Dose: 2.5 mg Rosuvastatin Calcium (Crestor) 5 mg PO HS [facility] Last Admin: 05/09/18 22:44 Dose: 5 mg Sevelamer Carbonate (Renvela) 800 mg PO TIDCC [facility] Last Admin: 05/10/18 13:41 Dose: 800 mg Sodium Bicarbonate (Sodium Bicarbonate Tab) 1,300 mg PO BID [facility] Last Admin: 05/10/18 09:49 Dose: 1,300 mg Tamsulosin HCl (Flomax) 0.4 mg PO DAILY [facility] Last Admin: 05/10/18 09:49 Dose: 0.4 mg Vitamin B Complex/Vit C/Folic Acid (Nephro-Socorro) 1 tab PO 0800 [facility] Last Admin: 05/10/18 09:48 Dose: 1 tab - Labs Labs: 05/09/18 08:20 05/09/18 08:20 - Constitutional Appears: Well - Head Exam Head Exam: ATRAUMATIC, NORMAL INSPECTION, NORMOCEPHALIC - Eye Exam Eye Exam: EOMI, Normal appearance, PERRL Pupil Exam: NORMAL ACCOMODATION, PERRL - ENT Exam ENT Exam: Mucous Membranes Moist, Normal Exam - Neck Exam Neck Exam: Full ROM, Normal Inspection. absent: Lymphadenopathy - Respiratory Exam Respiratory Exam: Decreased Breath Sounds - Cardiovascular Exam Cardiovascular Exam: REGULAR RHYTHM, +S1, +S2 - GI/Abdominal Exam GI & Abdominal Exam: Soft, Diminished Bowel Sounds - Rectal Exam Rectal Exam: Deferred
--- NOTE | 2018-05-10 14:50 | CP.PCM.PN ---
Subjective - Date & Time of Evaluation Date of Evaluation: 05/10/18 Time of Evaluation: 14:49 - Subjective Subjective: Nephrology Consultation Note: Assessment: Stable Hypoglycemia with AMS HTN urgency Diabetic chronic Kidney Disease (E11.22) Hypertensive Chronic Kidney Disease (I12.9) Chronic Kidney Disease (N18.5) Stage 5 with 3800 mg proteinuria (R80.9) likely due to DM/HTN Anemia (D64.9), Hyperphosphatemia (E83.39), Secondary Hyperparathyroidism (E21.1), HTN (I12.9), Vit D def Plan need for dialysis soon d/w patient, he refused for dialysis. psychiatry consult to assess his decisional capacity and suggested pt lack the decisional capacity. however it will be not possible to perform dialysis in this awake alert pt until unless he is agreeable for it. Hypertension control with meds as ordered. Maintain hemodynamics stable. Avoid hypotension. Patient not on ACEI/ARB due to advanced CKD. added prn hydralazine along with hydralazine 100 mg tid, minoxidil 2.5 mg/day Monitor Input/Output, daily weights and renal function with basic metabolic panel diuresis with IV lasix added iron, MVI and calcitriol. epogen as ordered continue with sodium bicarb supplements avoid phlebotomy or IV line in non-dominant arm. AV access placement if/once pt agreeable for dialysis d/w sister about pt refusal but lack capacity to do so, she said to have spoken with her brother but says can't do anything if he refuses Dose meds/antibiotics for reduced GFR. Avoid fleets enema/magnesium based laxatives. Avoid nephrotoxins/NSAIDs/ iodinated contrast (unless needed emergently) Glycemic control Further work up/management as per primary team Thanks for allowing me to participate in care of your patient. Will follow patient with you. Please call if any Qs. had d/w team and sister [phone] Rashid Morales Office: [phone] Chief Complaint; low sugar Reason for consult: CKD management HPI: Pt is a 62 M with hx of diabetes Mellitus ( years), hypertension (years) alcohol in past, anemia, CKD 4/5 presented with complaints of low blood sugar and AMS with it. now better. Denies OTC/herbal meds or NSAIDs No recent iodinated contrast exposure. No obvious episodes of low BP. renal consult for CKD management pt feels beter. denies SOB/chest pain has hoarsenes/slurred speech, says due to stroke in past ROS: pt not much interested in discussing. denies CP/SOB All other negative except as mentioned in HPI Physical Examination: General Appearance: Comfortable, in no acute respiratory distress, co-operative . Vitals reviewed and noted as below Head; Atraumatic, normocephalic ENT: no ulcers no thrush. Tongue is midline. Oropharynx: no rash or ulcers. hoarse voice EYES: Pupils are equal, round and reactive to light accommodation. Eye muscles and extraocular movement intact. Sclera is anicteric. Neck; supple no lymphadenopathy, no thyromegaly or bruit Lungs: Normal respiratory rate/effort. Breath sounds bilateral equal and clearer Heart: Normal rate. s1s2 normal. No rub or gallop. Extremities: no edema. No varicose veins Neurological: Patient is sleeping. chronic rt side weakness. slurred speech Skin: Warm and dry. Normal turgor. No rash. Palpitation: Normal elasticity for age Abdomen: Abdomen is soft. Bowel sounds +. There is no abdominal tenderness, no guarding/rigidity no organomegaly Psych: lack insight and flat affect/mood MSK: no joint tenderness or swelling. Digits and nails normal, no deformity : kidney or bladder not palpable Labs/imaging reviewed. Past medical history, past surgical history, family history, social history, allergy reviewed and noted as below Family hx: no hx of CKD. Rest non-contributory renal sono: b/l cysts Vit D <12.8 PTH 1094 Hep B/C/HIV neg UA 2+ protein with 3.8 gram proteinuria and 1.6 gram albuminuria TSAT 22% Ferritin 28 Objective - Vital Signs/Intake and Output Vital Signs (last 24 hours): Temp Pulse Resp BP Pulse Ox 98.6 F 84 20 164/90 H 97 05/10/18 07:00 05/10/18 07:00 05/10/18 07:00 05/10/18 09:48 05/10/18 07:00 Intake and Output: 05/10/18 05/10/18 06:59 18:59 Intake Total 300 300 Output Total 1150 400 Balance -850 -100 - Medications Medications: Current Medications Allopurinol (Zyloprim) 100 mg PO DAILY [facility] Last Admin: 05/10/18 09:48 Dose: 100 mg Amlodipine Besylate (Norvasc) 10 mg PO DAILY [facility] Last Admin: 05/10/18 09:47 Dose: 10 mg Aspirin (Aspirin Chewable) 81 mg PO DAILY [facility] Last Admin: 05/10/18 09:48 Dose: 81 mg Calcitriol (Rocaltrol) 0.25 mcg PO DAILY [facility] Last Admin: 05/10/18 09:48 Dose: 0.25 mcg Carvedilol (Coreg) 25 mg PO BID [facility] Last Admin: 05/10/18 09:48 Dose: 25 mg Clonazepam (Klonopin) 0.5 mg PO TID [facility] Last Admin: 05/10/18 13:41 Dose: 0.5 mg Epoetin Nam (Procrit) 4,000 unit [facility] Escitalopram Oxalate (Lexapro) 10 mg PO DAILY [facility] Last Admin: 05/10/18 09:47 Dose: 10 mg Ferrous Gluconate (Fergon) 324 mg PO TID [facility] Last Admin: 05/10/18 13:43 Dose: 324 mg Finasteride (Proscar) 5 mg PO DAILY [facility] Last Admin: 05/10/18 09:48 Dose: 5 mg Furosemide (Lasix) 40 mg PO BID [facility] Last Admin: 05/10/18 09:47 Dose: 40 mg Hydralazine HCl (Apresoline) 25 mg PO Q4 PRN PRN Reason: Other Last Admin: 05/09/18 05:28 Dose: 25 mg Hydralazine HCl (Apresoline) 100 mg PO TID [facility] Last Admin: 05/10/18 13:41 Dose: 100 mg Minoxidil (Minoxidil) 2.5 mg PO DAILY [facility] Last Admin: 05/10/18 13:41 Dose: 2.5 mg Rosuvastatin Calcium (Crestor) 5 mg PO HS [facility] Last Admin: 05/09/18 22:44 Dose: 5 mg Sevelamer Carbonate (Renvela) 800 mg PO TIDCC [facility] Last Admin: 05/10/18 13:41 Dose: 800 mg Sodium Bicarbonate (Sodium Bicarbonate Tab) 1,300 mg PO BID [facility] Last Admin: 05/10/18 09:49 Dose: 1,300 mg Tamsulosin HCl (Flomax) 0.4 mg PO DAILY [facility] Last Admin: 05/10/18 09:49 Dose: 0.4 mg Vitamin B Complex/Vit C/Folic Acid (Nephro-Socorro) 1 tab PO 0800 [facility] Last Admin: 05/10/18 09:48 Dose: 1 tab - Labs Labs: 05/09/18 08:20 05/09/18 08:20
[2018-05-11] MEDS: Multivitamin Vitamin B Complex (Nephro-Vite) Tab PO SCH (08:31)
--- NOTE | 2018-05-11 10:50 | CP.PCM.PN ---
Subjective - Date & Time of Evaluation Date of Evaluation: 05/11/18 Time of Evaluation: 10:49 - Subjective Subjective: Nephrology Consultation Note: Assessment: Stable Hypoglycemia with AMS HTN urgency Diabetic chronic Kidney Disease (E11.22) Hypertensive Chronic Kidney Disease (I12.9) Chronic Kidney Disease (N18.5) Stage 5 with 3800 mg proteinuria (R80.9) likely due to DM/HTN Anemia (D64.9), Hyperphosphatemia (E83.39), Secondary Hyperparathyroidism (E21.1), HTN (I12.9), Vit D def Plan need for dialysis soon has been discussed w/ pt but h ehas refused, f/u w/ psych - who states he lacks decision making capacity no labs in last couple days to review dereje review when possible continue bp meds Monitor Input/Output, daily weights and renal function with basic metabolic panel on iron, MVI and calcitriol. epogen as ordered continue with sodium bicarb supplements Dose meds/antibiotics for reduced GFR. Avoid fleets enema/magnesium based laxatives. Avoid nephrotoxins/NSAIDs/ iodinated contrast (unless needed emergently) Glycemic control Further work up/management as per primary team :S seen and examined has no complaints Physical Examination: General Appearance: Comfortable, in no acute respiratory distress, co-operative . Vitals reviewed and noted as below Head; Atraumatic, normocephalic ENT: no ulcers no thrush. Tongue is midline. Oropharynx: no rash or ulcers. hoarse voice EYES: Pupils are equal, round and reactive to light accommodation. Eye muscles and extraocular movement intact. Sclera is anicteric. Neck; supple no lymphadenopathy, no thyromegaly or bruit Lungs: Normal respiratory rate/effort. Breath sounds bilateral equal and clearer Heart: Normal rate. s1s2 normal. No rub or gallop. Extremities: no edema. No varicose veins Neurological: Patient is sleeping. chronic rt side weakness. slurred speech Skin: Warm and dry. Normal turgor. No rash. Palpitation: Normal elasticity for age Abdomen: Abdomen is soft. Bowel sounds +. There is no abdominal tenderness, no guarding/rigidity no organomegaly Psych: lack insight and flat affect/mood MSK: no joint tenderness or swelling. Digits and nails normal, no deformity : kidney or bladder not palpable Objective - Vital Signs/Intake and Output Vital Signs (last 24 hours): Temp Pulse Resp BP Pulse Ox 98.7 F 86 96 H 154/86 H 96 05/11/18 08:00 05/11/18 08:00 05/11/18 08:00 05/11/18 10:37 05/11/18 08:00 Intake and Output: 05/11/18 05/11/18 06:59 18:59 Intake Total 180 Balance 180 - Medications Medications: Current Medications Allopurinol (Zyloprim) 100 mg PO DAILY [facility] Last Admin: 05/11/18 10:37 Dose: 100 mg Amlodipine Besylate (Norvasc) 10 mg PO DAILY [facility] Last Admin: 05/11/18 10:37 Dose: 10 mg Aspirin (Aspirin Chewable) 81 mg PO DAILY [facility] Last Admin: 05/11/18 10:37 Dose: 81 mg Calcitriol (Rocaltrol) 0.25 mcg PO DAILY [facility] Last Admin: 05/10/18 09:48 Dose: 0.25 mcg Carvedilol (Coreg) 25 mg PO BID [facility] Last Admin: 05/11/18 10:37 Dose: 25 mg Clonazepam (Klonopin) 0.5 mg PO TID [facility] Last Admin: 05/11/18 10:38 Dose: 0.5 mg Epoetin Nam (Procrit) 4,000 unit [facility] Escitalopram Oxalate (Lexapro) 10 mg PO DAILY [facility] Last Admin: 05/11/18 10:37 Dose: 10 mg Ferrous Gluconate (Fergon) 324 mg PO TID [facility] Last Admin: 05/11/18 10:38 Dose: 324 mg Finasteride (Proscar) 5 mg PO DAILY [facility] Last Admin: 05/10/18 09:48 Dose: 5 mg Furosemide (Lasix) 40 mg PO BID [facility] Last Admin: 05/11/18 10:37 Dose: 40 mg Hydralazine HCl (Apresoline) 25 mg PO Q4 PRN PRN Reason: Other Last Admin: 05/09/18 05:28 Dose: 25 mg Hydralazine HCl (Apresoline) 100 mg PO TID [facility] Last Admin: 05/11/18 10:36 Dose: 100 mg Minoxidil (Minoxidil) 2.5 mg PO DAILY [facility] Last Admin: 05/10/18 13:41 Dose: 2.5 mg Rosuvastatin Calcium (Crestor) 5 mg PO HS [facility] Last Admin: 05/10/18 21:40 Dose: 5 mg Sevelamer Carbonate (Renvela) 800 mg PO TIDCC [facility] Last Admin: 05/11/18 08:31 Dose: 800 mg Sodium Bicarbonate (Sodium Bicarbonate Tab) 1,300 mg PO BID [facility] Last Admin: 05/11/18 10:37 Dose: 1,300 mg Tamsulosin HCl (Flomax) 0.4 mg PO DAILY [facility] Last Admin: 05/11/18 10:37 Dose: 0.4 mg Vitamin B Complex/Vit C/Folic Acid (Nephro-Socorro) 1 tab PO 0800 [facility] Last Admin: 05/11/18 08:31 Dose: 1 tab - Labs Labs: 05/09/18 08:20 05/09/18 08:20
--- NOTE | 2018-05-11 11:15 | CP.PCM.PN ---
Subjective - Date & Time of Evaluation Date of Evaluation: 05/11/18 Time of Evaluation: 11:45 - Subjective Subjective: clinically same Objective - Vital Signs/Intake and Output Vital Signs (last 24 hours): Temp Pulse Resp BP Pulse Ox 98.7 F 86 96 H 154/86 H 96 05/11/18 08:00 05/11/18 08:00 05/11/18 08:00 05/11/18 10:37 05/11/18 08:00 Intake and Output: 05/11/18 05/11/18 06:59 18:59 Intake Total 180 Balance 180 - Medications Medications: Current Medications Allopurinol (Zyloprim) 100 mg PO DAILY [facility] Last Admin: 05/11/18 10:37 Dose: 100 mg Amlodipine Besylate (Norvasc) 10 mg PO DAILY [facility] Last Admin: 05/11/18 10:37 Dose: 10 mg Aspirin (Aspirin Chewable) 81 mg PO DAILY [facility] Last Admin: 05/11/18 10:37 Dose: 81 mg Calcitriol (Rocaltrol) 0.25 mcg PO DAILY [facility] Last Admin: 05/10/18 09:48 Dose: 0.25 mcg Carvedilol (Coreg) 25 mg PO BID [facility] Last Admin: 05/11/18 10:37 Dose: 25 mg Clonazepam (Klonopin) 0.5 mg PO TID [facility] Last Admin: 05/11/18 10:38 Dose: 0.5 mg Epoetin Nam (Procrit) 4,000 unit [place] [facility] Escitalopram Oxalate (Lexapro) 10 mg PO DAILY [facility] Last Admin: 05/11/18 10:37 Dose: 10 mg Ferrous Gluconate (Fergon) 324 mg PO TID [facility] Last Admin: 05/11/18 10:38 Dose: 324 mg Finasteride (Proscar) 5 mg PO DAILY [facility] Last Admin: 05/10/18 09:48 Dose: 5 mg Furosemide (Lasix) 40 mg PO BID [facility] Last Admin: 05/11/18 10:37 Dose: 40 mg Hydralazine HCl (Apresoline) 25 mg PO Q4 PRN PRN Reason: Other Last Admin: 05/09/18 05:28 Dose: 25 mg Hydralazine HCl (Apresoline) 100 mg PO TID [facility] Last Admin: 05/11/18 10:36 Dose: 100 mg Minoxidil (Minoxidil) 2.5 mg PO DAILY [facility] Last Admin: 05/10/18 13:41 Dose: 2.5 mg Rosuvastatin Calcium (Crestor) 5 mg PO HS [facility] Last Admin: 05/10/18 21:40 Dose: 5 mg Sevelamer Carbonate (Renvela) 800 mg PO TIDCC [facility] Last Admin: 05/11/18 08:31 Dose: 800 mg Sodium Bicarbonate (Sodium Bicarbonate Tab) 1,300 mg PO BID [facility] Last Admin: 05/11/18 10:37 Dose: 1,300 mg Tamsulosin HCl (Flomax) 0.4 mg PO DAILY [facility] Last Admin: 05/11/18 10:37 Dose: 0.4 mg Vitamin B Complex/Vit C/Folic Acid (Nephro-Socorro) 1 tab PO 0800 [facility] Last Admin: 05/11/18 08:31 Dose: 1 tab - Labs Labs: 05/09/18 08:20 05/09/18 08:20 - Constitutional Appears: Well - Head Exam Head Exam: ATRAUMATIC, NORMAL INSPECTION, NORMOCEPHALIC - Eye Exam Eye Exam: EOMI, Normal appearance, PERRL Pupil Exam: NORMAL ACCOMODATION, PERRL - ENT Exam ENT Exam: Mucous Membranes Moist, Normal Exam - Neck Exam Neck Exam: Full ROM, Normal Inspection. absent: Lymphadenopathy - Respiratory Exam Respiratory Exam: Decreased Breath Sounds - Cardiovascular Exam Cardiovascular Exam: REGULAR RHYTHM, +S1, +S2 - GI/Abdominal Exam GI & Abdominal Exam: Soft, Diminished Bowel Sounds - Rectal Exam Rectal Exam: Deferred
[2018-05-12] MEDS: Multivitamin Vitamin B Complex (Nephro-Vite) Tab PO SCH (08:59)
--- NOTE | 2018-05-12 10:49 | CP.PCM.PN ---
Subjective - Date & Time of Evaluation Date of Evaluation: 05/12/18 Time of Evaluation: 10:48 - Subjective Subjective: Nephrology Consultation Note: Assessment: Stable Hypoglycemia with AMS HTN urgency Diabetic chronic Kidney Disease (E11.22) Hypertensive Chronic Kidney Disease (I12.9) Chronic Kidney Disease (N18.5) Stage 5 with 3800 mg proteinuria (R80.9) likely due to DM/HTN Anemia (D64.9), Hyperphosphatemia (E83.39), Secondary Hyperparathyroidism (E21.1), HTN (I12.9), Vit D def Plan need for dialysis soon has been discussed w/ pt but he did not want to address , f/u w/ psych - who states he lacks decision making capacity no labs in last couple days to review will review when possible continue bp meds Monitor Input/Output, daily weights and renal function with basic metabolic panel on iron, MVI and calcitriol. epogen as ordered continue with sodium bicarb supplements Dose meds/antibiotics for reduced GFR. Avoid fleets enema/magnesium based laxatives. Avoid nephrotoxins/NSAIDs/ iodinated contrast (unless needed emergently) Glycemic control Further work up/management as per primary team S seen and examined has no complaints Physical Examination: General Appearance: Comfortable, in no acute respiratory distress, co-operative . Vitals reviewed and noted as below Head; Atraumatic, normocephalic ENT: no ulcers no thrush. Tongue is midline. Oropharynx: no rash or ulcers. hoarse voice EYES: Pupils are equal, round and reactive to light accommodation. Eye muscles and extraocular movement intact. Sclera is anicteric. Neck; supple no lymphadenopathy, no thyromegaly or bruit Lungs: Normal respiratory rate/effort. Breath sounds bilateral equal and clearer Heart: Normal rate. s1s2 normal. No rub or gallop. Extremities: no edema. No varicose veins Neurological: Patient is sleeping. chronic rt side weakness. slurred speech Skin: Warm and dry. Normal turgor. No rash. Palpitation: Normal elasticity for age Abdomen: Abdomen is soft. Bowel sounds +. There is no abdominal tenderness, no guarding/rigidity no organomegaly Psych: lack insight and flat affect/mood MSK: no joint tenderness or swelling. Digits and nails normal, no deformity : kidney or bladder not palpable Objective - Vital Signs/Intake and Output Vital Signs (last 24 hours): Temp Pulse Resp BP Pulse Ox 98.6 F 95 H 20 138/75 95 05/12/18 08:06 05/12/18 08:06 05/12/18 08:06 05/12/18 10:22 05/12/18 08:06 Intake and Output: 05/12/18 05/12/18 06:59 18:59 Intake Total 320 Output Total 300 Balance 20 - Medications Medications: Current Medications Allopurinol (Zyloprim) 100 mg PO DAILY [facility] Last Admin: 05/12/18 10:20 Dose: 100 mg Amlodipine Besylate (Norvasc) 10 mg PO DAILY [facility] Last Admin: 05/12/18 10:21 Dose: 10 mg Aspirin (Aspirin Chewable) 81 mg PO DAILY [facility] Last Admin: 05/11/18 10:37 Dose: 81 mg Calcitriol (Rocaltrol) 0.25 mcg PO DAILY [facility] Last Admin: 05/12/18 10:20 Dose: 0.25 mcg Carvedilol (Coreg) 25 mg PO BID [facility] Last Admin: 05/12/18 10:22 Dose: 25 mg Clonazepam (Klonopin) 0.5 mg PO TID [facility] Last Admin: 05/12/18 10:22 Dose: 0.5 mg Epoetin Nam (Procrit) 4,000 unit [place] [facility] [place] Escitalopram Oxalate (Lexapro) 10 mg PO DAILY [facility] Last Admin: 05/12/18 10:21 Dose: 10 mg Ferrous Gluconate (Fergon) 324 mg PO TID [facility] Last Admin: 05/12/18 10:20 Dose: 324 mg Finasteride (Proscar) 5 mg PO DAILY [facility] Last Admin: 05/12/18 10:20 Dose: 5 mg Furosemide (Lasix) 40 mg PO BID [facility] Last Admin: 05/12/18 10:21 Dose: 40 mg Hydralazine HCl (Apresoline) 25 mg PO Q4 PRN PRN Reason: Other Last Admin: 05/09/18 05:28 Dose: 25 mg Hydralazine HCl (Apresoline) 100 mg PO TID [facility] Last Admin: 05/12/18 10:21 Dose: 100 mg Minoxidil (Minoxidil) 2.5 mg PO DAILY [facility] Last Admin: 05/11/18 11:34 Dose: 2.5 mg Rosuvastatin Calcium (Crestor) 5 mg PO HS [facility] Last Admin: 05/11/18 22:06 Dose: 5 mg Sevelamer Carbonate (Renvela) 800 mg PO TIDCC [facility] Last Admin: 05/12/18 08:59 Dose: 800 mg Sodium Bicarbonate (Sodium Bicarbonate Tab) 1,300 mg PO BID [facility] Last Admin: 05/12/18 10:21 Dose: 1,300 mg Tamsulosin HCl (Flomax) 0.4 mg PO DAILY [facility] Last Admin: 05/12/18 10:21 Dose: 0.4 mg Vitamin B Complex/Vit C/Folic Acid (Nephro-Socorro) 1 tab PO 0800 [facility] Last Admin: 05/12/18 08:59 Dose: 1 tab - Labs Labs: 05/09/18 08:20 05/09/18 08:20
[2018-05-12 11:55] LABS: BASO # 0.1 K/uL (0.0-0.2); BASO % 0.6 % (0.0-2.0); EOS # 0.1 K/uL (0.0-0.7); EOS % 1.7 % (0.0-4.0); HEMOGLOBIN 8.5 g/dL (12.0-18.0); LYMPH # 0.8 K/uL (1.0-4.3); LYMPH % 9.1 % (20.0-40.0); MEAN CELL VOLUME 90.5 fL (80.0-94.0); MEAN CORPUSCULAR HEMOGLOBIN 31.3 pg (27.0-31.0); MEAN CORPUSCULAR HGB CONC 34.6 g/dL (33.0-37.0); MEAN PLATELET VOLUME 7.7 fL (7.2-11.7); MONO # 0.8 K/uL (0.0-0.8); MONO % 8.9 % (0.0-10.0); NEUT % 79.7 % (50.0-75.0); PLATELET COUNT 195 K/uL (130-400); RBC 2.71 Mil/uL (4.40-5.90); RED CELL DISTRIBUTION WIDTH 13.7 % (11.5-14.5); WHITE BLOOD COUNT 8.8 K/uL (4.8-10.8)
[2018-05-12 12:15] LABS: EOSINOPHIL 2 % (0-4); LYMPHOCYTE 8 % (20-40); MONOCYTE 6 % (0-10); NEUTROPHIL 84 % (50-75); PLATELET ESTIMATE NORMAL (NORMAL); TOTAL CELLS COUNTED 100
[2018-05-12 12:16] LABS: ANISOCYTOSIS SLIGHT; HYPOCHROMIC SLIGHT; POLYCHROMIC SLIGHT
[2018-05-12 12:19] LABS: ALB/GLOB RATIO 1.2 (1.0-2.1); ALBUMIN 3.7 g/dL (3.5-5.0)
--- NOTE | 2018-05-12 14:24 | CP.PCM.PN ---
Subjective - Date & Time of Evaluation Date of Evaluation: 05/12/18 Time of Evaluation: 07:15 - Subjective Subjective: clinically same Objective - Vital Signs/Intake and Output Vital Signs (last 24 hours): Temp Pulse Resp BP Pulse Ox 98.6 F 95 H 20 138/75 95 05/12/18 08:06 05/12/18 08:06 05/12/18 08:06 05/12/18 10:22 05/12/18 08:06 Intake and Output: 05/12/18 05/12/18 06:59 18:59 Intake Total 320 Output Total 300 Balance 20 - Medications Medications: Current Medications Allopurinol (Zyloprim) 100 mg PO DAILY [facility] Last Admin: 05/12/18 10:20 Dose: 100 mg Amlodipine Besylate (Norvasc) 10 mg PO DAILY [facility] Last Admin: 05/12/18 10:21 Dose: 10 mg Aspirin (Aspirin Chewable) 81 mg PO DAILY [facility] Last Admin: 05/12/18 12:11 Dose: 81 mg Calcitriol (Rocaltrol) 0.25 mcg PO DAILY [facility] Last Admin: 05/12/18 10:20 Dose: 0.25 mcg Carvedilol (Coreg) 25 mg PO BID [facility] Last Admin: 05/12/18 10:22 Dose: 25 mg Clonazepam (Klonopin) 0.5 mg PO TID [facility] Last Admin: 05/12/18 14:01 Dose: 0.5 mg Epoetin Nam (Procrit) 4,000 unit [facility] Escitalopram Oxalate (Lexapro) 10 mg PO DAILY [facility] Last Admin: 05/12/18 10:21 Dose: 10 mg Ferrous Gluconate (Fergon) 324 mg PO TID [facility] Last Admin: 05/12/18 14:01 Dose: 324 mg Finasteride (Proscar) 5 mg PO DAILY [facility] Last Admin: 05/12/18 10:20 Dose: 5 mg Furosemide (Lasix) 40 mg PO BID [facility] Last Admin: 05/12/18 10:21 Dose: 40 mg Hydralazine HCl (Apresoline) 25 mg PO Q4 PRN PRN Reason: Other Last Admin: 05/09/18 05:28 Dose: 25 mg Hydralazine HCl (Apresoline) 100 mg PO TID [facility] Last Admin: 05/12/18 14:01 Dose: 100 mg Lactulose (Enulose) 30 gm PO BID [facility] Minoxidil (Minoxidil) 2.5 mg PO DAILY [facility] Last Admin: 05/12/18 12:28 Dose: 2.5 mg Rosuvastatin Calcium (Crestor) 5 mg PO HS [facility] Last Admin: 05/11/18 22:06 Dose: 5 mg Sevelamer Carbonate (Renvela) 800 mg PO TIDCC [facility] Last Admin: 05/12/18 12:11 Dose: 800 mg Sodium Bicarbonate (Sodium Bicarbonate Tab) 1,300 mg PO BID [facility] Last Admin: 05/12/18 10:21 Dose: 1,300 mg Tamsulosin HCl (Flomax) 0.4 mg PO DAILY [facility] Last Admin: 05/12/18 10:21 Dose: 0.4 mg Vitamin B Complex/Vit C/Folic Acid (Nephro-Socorro) 1 tab PO 0800 [facility] Last Admin: 05/12/18 08:59 Dose: 1 tab - Labs Labs: 05/12/18 11:45 05/12/18 11:45 - Constitutional Appears: Well - Head Exam Head Exam: ATRAUMATIC, NORMAL INSPECTION, NORMOCEPHALIC - Eye Exam Eye Exam: EOMI, Normal appearance, PERRL Pupil Exam: NORMAL ACCOMODATION, PERRL - ENT Exam ENT Exam: Mucous Membranes Moist, Normal Exam - Neck Exam Neck Exam: Full ROM, Normal Inspection. absent: Lymphadenopathy - Respiratory Exam Respiratory Exam: Decreased Breath Sounds - Cardiovascular Exam Cardiovascular Exam: REGULAR RHYTHM, +S1, +S2 - GI/Abdominal Exam GI & Abdominal Exam: Soft, Diminished Bowel Sounds - Rectal Exam Rectal Exam: Deferred
[2018-05-13] MEDS: Multivitamin Vitamin B Complex (Nephro-Vite) Tab PO SCH (08:26)
[2018-05-13] MEDS ORDERED: EPOETIN ALFA 4,000 UNIT/ML ML Dialysis SC SCH (11:45)
[2018-05-13] MEDS ORDERED: EPOETIN ALFA 4,000 UNIT/ML ML Dialysis SC ONE (12:36)
--- NOTE | 2018-05-13 13:09 | CP.PCM.PN ---
Subjective - Date & Time of Evaluation Date of Evaluation: 05/13/18 Time of Evaluation: 13:05 - Subjective Subjective: Nephrology Consultation Note: Assessment: Stable Hypoglycemia with AMS HTN urgency Diabetic chronic Kidney Disease (E11.22) Hypertensive Chronic Kidney Disease (I12.9) Chronic Kidney Disease (N18.5) Stage 5 with 3800 mg proteinuria (R80.9) likely due to DM/HTN Anemia (D64.9), Hyperphosphatemia (E83.39), Secondary Hyperparathyroidism (E21.1), HTN (I12.9), Vit D def Plan need for dialysis d/w patient and mother/sister, he refused for dialysis. psychiatry suggested pt lack the decisional capacity. pt and his family refuses for any consideration of fialysis. just want to get d/c from hospital. Hypertension control with meds as ordered. Maintain hemodynamics stable. Avoid hypotension. Patient not on ACEI/ARB due to advanced CKD. added prn hydralazine along with hydralazine 100 mg tid, minoxidil 2.5 mg/day Monitor Input/Output, daily weights and renal function with basic metabolic panel diuresis with PO lasix added iron, MVI and calcitriol. epogen as ordered continue with sodium bicarb supplements 650 mg bid Dose meds/antibiotics for reduced GFR. Avoid fleets enema/magnesium based laxatives. Avoid nephrotoxins/NSAIDs/ iodinated contrast (unless needed emergently) Glycemic control Further work up/management as per primary team pt stable for d/c from renal perspective when planned with outpt renal follow up 1 week. Thanks for allowing me to participate in care of your patient. Will follow patient with you. Please call if any Qs. had d/w team and mother and sister [phone] Rashid Morales Office: [phone] Chief Complaint; low sugar Reason for consult: CKD management HPI: Pt is a 62 M with hx of diabetes Mellitus ( years), hypertension (years) alcohol in past, anemia, CKD 4/5 presented with complaints of low blood sugar and AMS with it. now better. Denies OTC/herbal meds or NSAIDs No recent iodinated contrast exposure. No obvious episodes of low BP. renal consult for CKD management pt feels beter. denies SOB/chest pain has hoarsenes/slurred speech, says due to stroke in past ROS: pt not much interested in discussing. denies CP/SOB All other negative except as mentioned in HPI mother bedside, used [employer] for french interpretation. pt and mother just want to get d/c from hospital. pt keep refusing dialysis and mother fully supported his decisional despite explanation that pt lacks decisional capacity he gets angry at mention of dialysis and wants me to just go away. Physical Examination: General Appearance: Comfortable, in no acute respiratory distress, unco- operative . Vitals reviewed and noted as below Head; Atraumatic, normocephalic ENT: no ulcers no thrush. Tongue is midline. Oropharynx: no rash or ulcers. hoarse voice EYES: Pupils are equal, round and reactive to light accommodation. Eye muscles and extraocular movement intact. Sclera is anicteric. Neck; supple no lymphadenopathy, no thyromegaly or bruit Lungs: Normal respiratory rate/effort. Breath sounds bilateral equal and clearer Heart: Normal rate. s1s2 normal. No rub or gallop. Extremities: no edema. No varicose veins Neurological: Patient is sleeping. chronic rt side weakness. slurred speech Skin: Warm and dry. Normal turgor. No rash. Palpitation: Normal elasticity for age Abdomen: Abdomen is soft. Bowel sounds +. There is no abdominal tenderness, no guarding/rigidity no organomegaly Psych: lack insight and flat affect/mood MSK: no joint tenderness or swelling. Digits and nails normal, no deformity : kidney or bladder not palpable Labs/imaging reviewed. Past medical history, past surgical history, family history, social history, allergy reviewed and noted as below Family hx: no hx of CKD. Rest non-contributory renal sono: b/l cysts Vit D <12.8 PTH 1094 Hep B/C/HIV neg UA 2+ protein with 3.8 gram proteinuria and 1.6 gram albuminuria TSAT 22% Ferritin 28 Objective - Vital Signs/Intake and Output Vital Signs (last 24 hours): Temp Pulse Resp BP Pulse Ox 97.9 F 61 96 H 147/79 97 05/13/18 08:53 05/13/18 08:53 05/13/18 08:53 05/13/18 09:58 05/13/18 00:00 Intake and Output: 05/13/18 05/13/18 06:59 18:59 Intake Total 300 Output Total 650 Balance -350 - Medications Medications: Current Medications Allopurinol (Zyloprim) 100 mg PO DAILY [facility] Last Admin: 05/13/18 09:58 Dose: 100 mg Amlodipine Besylate (Norvasc) 10 mg PO DAILY [facility] Last Admin: 05/13/18 09:58 Dose: 10 mg Aspirin (Aspirin Chewable) 81 mg PO DAILY [facility] Last Admin: 05/13/18 09:58 Dose: 81 mg Calcitriol (Rocaltrol) 0.25 mcg PO DAILY [facility] Last Admin: 05/13/18 09:59 Dose: 0.25 mcg Carvedilol (Coreg) 25 mg PO BID [facility] Last Admin: 05/13/18 09:58 Dose: 25 mg Clonazepam (Klonopin) 0.5 mg PO TID [facility] Last Admin: 05/13/18 09:59 Dose: 0.5 mg Epoetin Nam (Procrit) 8,000 unit [facility] Escitalopram Oxalate (Lexapro) 10 mg PO DAILY [facility] Last Admin: 05/13/18 09:59 Dose: 10 mg Ferrous Gluconate (Fergon) 324 mg PO TID [facility] Last Admin: 05/13/18 10:00 Dose: 324 mg Finasteride (Proscar) 5 mg PO DAILY [facility] Last Admin: 05/13/18 09:59 Dose: 5 mg Furosemide (Lasix) 40 mg PO BID [facility] Last Admin: 05/13/18 09:58 Dose: 40 mg Hydralazine HCl (Apresoline) 25 mg PO Q4 PRN PRN Reason: Other Last Admin: 05/09/18 05:28 Dose: 25 mg Hydralazine HCl (Apresoline) 100 mg PO TID [facility] Last Admin: 05/13/18 09:58 Dose: 100 mg Lactulose (Enulose) 30 gm PO BID [facility] Last Admin: 05/13/18 10:00 Dose: 30 gm Minoxidil (Minoxidil) 2.5 mg PO DAILY [facility] Last Admin: 05/13/18 09:59 Dose: 2.5 mg Rosuvastatin Calcium (Crestor) 5 mg PO HS [facility] Last Admin: 05/12/18 21:49 Dose: 5 mg Sevelamer Carbonate (Renvela) 800 mg PO TIDCC [facility] Last Admin: 05/13/18 12:42 Dose: 800 mg Sodium Bicarbonate (Sodium Bicarbonate Tab) 650 mg PO BID [facility] Tamsulosin HCl (Flomax) 0.4 mg PO DAILY [facility] Last Admin: 05/13/18 09:58 Dose: 0.4 mg Vitamin B Complex/Vit C/Folic Acid (Nephro-Socorro) 1 tab PO 0800 [facility] Last Admin: 05/13/18 08:26 Dose: 1 tab - Labs Labs: 05/12/18 11:45 05/12/18 11:45
[2018-05-13 17:31] VITALS: RESP 20
--- NOTE | 2018-05-13 18:18 | CP.PCM.PN ---
Subjective - Date & Time of Evaluation Date of Evaluation: 05/13/18 Time of Evaluation: 07:30 - Subjective Subjective: clinically same Objective - Vital Signs/Intake and Output Vital Signs (last 24 hours): Temp Pulse Resp BP Pulse Ox 98.6 F 91 H 20 134/69 92 L 05/13/18 17:30 05/13/18 17:30 05/13/18 17:30 05/13/18 17:30 05/13/18 17:30 Intake and Output: 05/13/18 05/13/18 06:59 18:59 Intake Total 300 480 Output Total 650 Balance -350 480 - Medications Medications: Current Medications Allopurinol (Zyloprim) 100 mg PO DAILY [facility] Last Admin: 05/13/18 09:58 Dose: 100 mg Amlodipine Besylate (Norvasc) 10 mg PO DAILY [facility] Last Admin: 05/13/18 09:58 Dose: 10 mg Aspirin (Aspirin Chewable) 81 mg PO DAILY [facility] Last Admin: 05/13/18 09:58 Dose: 81 mg Calcitriol (Rocaltrol) 0.25 mcg PO DAILY [facility] Last Admin: 05/13/18 09:59 Dose: 0.25 mcg Carvedilol (Coreg) 25 mg PO BID [facility] Last Admin: 05/13/18 17:25 Dose: 25 mg Clonazepam (Klonopin) 0.5 mg PO TID [facility] Last Admin: 05/13/18 17:26 Dose: 0.5 mg Epoetin Nam (Procrit) 8,000 unit [facility] Escitalopram Oxalate (Lexapro) 10 mg PO DAILY [facility] Last Admin: 05/13/18 09:59 Dose: 10 mg Ferrous Gluconate (Fergon) 324 mg PO TID [facility] Last Admin: 05/13/18 17:25 Dose: 324 mg Finasteride (Proscar) 5 mg PO DAILY [facility] Last Admin: 05/13/18 09:59 Dose: 5 mg Furosemide (Lasix) 40 mg PO BID [facility] Last Admin: 05/13/18 17:29 Dose: 40 mg Hydralazine HCl (Apresoline) 25 mg PO Q4 PRN PRN Reason: Other Last Admin: 05/09/18 05:28 Dose: 25 mg Hydralazine HCl (Apresoline) 100 mg PO TID [facility] Last Admin: 05/13/18 17:25 Dose: 100 mg Lactulose (Enulose) 30 gm PO BID [facility] Last Admin: 05/13/18 17:37 Dose: 30 gm Minoxidil (Minoxidil) 2.5 mg PO DAILY [facility] Last Admin: 05/13/18 09:59 Dose: 2.5 mg Rosuvastatin Calcium (Crestor) 5 mg PO HS [facility] Last Admin: 05/12/18 21:49 Dose: 5 mg Sevelamer Carbonate (Renvela) 800 mg PO TIDCC [facility] Last Admin: 05/13/18 17:26 Dose: 800 mg Sodium Bicarbonate (Sodium Bicarbonate Tab) 650 mg PO BID [facility] Last Admin: 05/13/18 17:27 Dose: 650 mg Tamsulosin HCl (Flomax) 0.4 mg PO DAILY [facility] Last Admin: 05/13/18 09:58 Dose: 0.4 mg Vitamin B Complex/Vit C/Folic Acid (Nephro-Socorro) 1 tab PO 0800 [facility] Last Admin: 05/13/18 08:26 Dose: 1 tab - Labs Labs: 05/12/18 11:45 05/12/18 11:45
[2018-05-14] MEDS: Multivitamin Vitamin B Complex (Nephro-Vite) Tab PO SCH (08:41)
--- NOTE | 2018-05-14 10:38 | CP.PCM.CON ---
History of Present Illness - History of Present Illness History of Present Illness: Palliative consult requested by Tang BAUTISTA for goals of care discussion Patient is a 62 yo male admitted from home where was found by EMS to be lethargic with sjaking movements. Patient has Hx of hypoglycemia and was not sure weather or not he took his Glimepiride nor did he ate after it. Glucose on admission was 106 in am than dropped to 33 in few hours. Blood glucose level was stabilized during the day. Urine analysis revealed proteinuria and albuminuria. Doctor Andrew was called on consult and HD was advised what patient refused. Psych consult was called and patient found not to have decision making capacity. Patient's sister Yeni Richmond [phone] is involved in care. She was not able to convince patient to HD and stat es patient wishes to return to [facility] and there. Patient is managed conservatively in meantime with Bi carbs, Renwella, Calcitrol anf BP control meds. PMH: CVA X 3,last was in 2008 when patient's speech was affected, Right sided weakness, uses WC at home, unstaedy gait, HTN, CKD, Hypoglycemia Soc. Hx: single, lives at home, unemployed Fam. Hx: Unknown Review of Systems - Review of Systems All systems: reviewed and no additional remarkable complaints except Review of Systems: ROS unobtainable from patient due to lethargy. Per nursing patient has been lethargyc and sleeping most of the time. Urine output around 1000 cc a day with Lasix BID Past Patient History - Infectious Disease Hx of Infectious Diseases: None - Past Medical History & Family History Past Medical History?: Yes - Past Social History Smoking Status: Former Smoker - CARDIAC Hx Congestive Heart Failure: Yes Hx Hypertension: Yes - PULMONARY Hx Respiratory Disorders: No - NEUROLOGICAL Hx Seizures: Yes - HEENT Hx HEENT Problems: No - RENAL Hx Chronic Kidney Disease: Yes Hx Kidney Stones: Yes - ENDOCRINE/METABOLIC Hx Endocrine Disorders: Yes Hx Diabetes Mellitus Type 2: Yes - HEMATOLOGICAL/ONCOLOGICAL Hx Blood Disorders: No Hx Blood Transfusions: No - INTEGUMENTARY Hx Dermatological Problems: No - MUSCULOSKELETAL/RHEUMATOLOGICAL Hx Falls: No - GASTROINTESTINAL Hx Gastrointestinal Disorders: No - GENITOURINARY/GYNECOLOGICAL Hx Genitourinary Disorders: No - PSYCHIATRIC Hx Substance Use: No - SURGICAL HISTORY Hx Surgeries: No - ANESTHESIA Hx Anesthesia: No Hx Anesthesia Reactions: No Hx Malignant Hyperthermia: No Meds Allergies/Adverse Reactions: Allergies Allergy/AdvReac Type Severity Reaction Status Date / Time Unobtainable Allergy Verified 05/06/18 08:51 - Medications Medications: Current Medications Allopurinol (Zyloprim) 100 mg PO DAILY [facility] Last Admin: 05/13/18 09:58 Dose: 100 mg Amlodipine Besylate (Norvasc) 10 mg PO DAILY [facility] Last Admin: 05/13/18 09:58 Dose: 10 mg Aspirin (Aspirin Chewable) 81 mg PO DAILY [facility] Last Admin: 05/13/18 09:58 Dose: 81 mg Calcitriol (Rocaltrol) 0.25 mcg PO DAILY [facility] Last Admin: 05/13/18 09:59 Dose: 0.25 mcg Carvedilol (Coreg) 25 mg PO BID [facility] Last Admin: 05/13/18 17:25 Dose: 25 mg Clonazepam (Klonopin) 0.5 mg PO TID [facility] Last Admin: 05/13/18 17:26 Dose: 0.5 mg Epoetin Nam (Procrit) 8,000 unit [facility] Escitalopram Oxalate (Lexapro) 10 mg PO DAILY [facility] Last Admin: 05/13/18 09:59 Dose: 10 mg Ferrous Gluconate (Fergon) 324 mg PO TID [facility] Last Admin: 05/13/18 17:25 Dose: 324 mg Finasteride (Proscar) 5 mg PO DAILY [facility] Last Admin: 05/13/18 09:59 Dose: 5 mg Furosemide (Lasix) 40 mg PO BID [facility] Last Admin: 05/13/18 17:29 Dose: 40 mg Hydralazine HCl (Apresoline) 25 mg PO Q4 PRN PRN Reason: Other Last Admin: 05/09/18 05:28 Dose: 25 mg Hydralazine HCl (Apresoline) 100 mg PO TID [facility] Last Admin: 05/13/18 17:25 Dose: 100 mg Lactulose (Enulose) 30 gm PO BID [facility] Last Admin: 05/13/18 17:37 Dose: 30 gm Minoxidil (Minoxidil) 2.5 mg PO DAILY [facility] Last Admin: 05/13/18 09:59 Dose: 2.5 mg Rosuvastatin Calcium (Crestor) 5 mg PO [facility] Last Admin: 05/13/18 21:54 Dose: 5 mg Sevelamer Carbonate (Renvela) 800 mg PO TIDCC [facility] Last Admin: 05/14/18 08:41 Dose: 800 mg Sodium Bicarbonate (Sodium Bicarbonate Tab) 650 mg PO BID [facility] Last Admin: 05/13/18 17:27 Dose: 650 mg Tamsulosin HCl (Flomax) 0.4 mg PO DAILY [facility] Last Admin: 05/13/18 09:58 Dose: 0.4 mg Vitamin B Complex/Vit C/Folic Acid (Nephro-Socorro) 1 tab PO 0800 [facility] Last Admin: 05/14/18 08:41 Dose: 1 tab Physical Exam - Constitutional Appears: Chronically Ill - Head Exam Head Exam: ATRAUMATIC, NORMAL INSPECTION, NORMOCEPHALIC - Eye Exam Eye Exam: EOMI, Normal appearance, PERRL Pupil Exam: NORMAL ACCOMODATION, PERRL - ENT Exam ENT Exam: Mucous Membranes Moist, Normal Exam - Neck Exam Neck exam: Positive for: Normal Inspection - Respiratory Exam Respiratory Exam: Decreased Breath Sounds, Rhonchi, NORMAL BREATHING PATTERN - Cardiovascular Exam Cardiovascular Exam: Tachycardia, REGULAR RHYTHM, +S1, +S2 - GI/Abdominal Exam GI & Abdominal Exam: Distended, Normal Bowel Sounds, Soft - Rectal Exam Rectal Exam: Deferred - Exam Exam: NORMAL INSPECTION - Extremities Exam Extremities exam: Positive for: normal inspection - Back Exam Back exam: NORMAL INSPECTION - Neurological Exam Neurological exam: Alert, Altered - Psychiatric Exam Psychiatric exam: Flat Affect - Skin Skin Exam: Dry, Intact, Pallor, Warm Results - Vital Signs Recent Vital Signs: Last Vital Signs Temp 97.6 F 05/14/18 08:00 Pulse 88 05/14/18 08:00 Resp 20 05/14/18 08:00 BP 147/69 05/14/18 08:00 Pulse Ox 98 05/14/18 08:00 - Labs Result Diagrams: 05/12/18 11:45 05/12/18 11:45 Labs: Laboratory Results - last 24 hr 05/13/18 05/13/18 05/13/18 11:17 16:18 21:04 POC Glucose (mg/dL) 157 H 137 H 209 H 05/14/18 07:21 POC Glucose (mg/dL) 124 H Assessment & Plan - Assessment and Plan (Free Text) Assessment: Palliative consult Full Code, there is no Advance Directive on chart, PPS 20% I reviewed Medical records, all diagnostic studies, examined patient in the bed. Patient examined in bed in deep sleep snoring. When aroused, patient unable to fallow verbal commends, appears lethargic, reacts to tactile stimuli. Speech is mumbled due to last CVA in 2008. Patient is a very obese with large , softly distended abdomen. His breathing is diminished, breath sounds congested, O2 Sat 98 % RA. Right sided weakness. urinates using urinal. BP 147/69, HR 88, afebrile WBC 8.8, Hb 8.5 Meds : Renwela, Calcitrol, Allopurinol, Coreg, Noebasc, HCTZ, Lasix, lactulose Family meeting attended by patient's mother and sister Kellie ). This was a very long and difficult meeting due to mother's unrealistic expectations of care . At first I reviewed patient's clinical presentation and offered my concerns regarding patient's refusal of suggested HD. I elicited family's understanding of patient's condition. They both admitted being aware of patient's refusal of HD and readiness to fallow his wishes. I offered more information about the importance of HD in this case . I also suggested that refusal of such could result in . Mother asked if her son could travel back to [facility] as it was his wish. I discussed this with Niharika BAUTISTA who said that per Doctor Morales patient could be discharged home on current meds and travel back to [facility]. This was shared with mother and sister. I called Doctor Morales's office to clarify this but did not get call back while on the floor. Code status discussed. POLST introduced. Mother did not feel comfortable signing DNR/DNI despite previously stated understanding that lack of HD could cause . Hospice at home discussed as possibility. Family undecided, focussed on traveling to [facility]. Impression * CKD worsening , in need for HD * Per staff and family patient had refused HD * Patient is lethargic and unable to participate in care planing * [facility] * Patient could go home on current meds as per Doctor Morales * Mother did not feel comfortable signing DNR/DNI Suggestion * Continue renal management as per Doctor Morales * Promote safety * Discharge home with current meds * Full Code Palliative care will be available to assit in further goals of care planing in case patient's condition worsens and discharge home is not an option any more. Advance care planing 50 min
--- NOTE | 2018-05-14 14:43 | PCM.PYCHPN ---
Psychiatric Progress Note - Psychiatric Progress Note Patient seen today, length of contact: 16 min Patient Chief Complaint: "Leave me alone!!" Problems Identified/Issues Discussed: Seen, case discussed with [employer], chart reviewed Still refusing treatment, angry, isolated, worsening slowly Risk of discussed and he again said he didn't care Palliative is involved Family is now involved but they don't want to make decisions on his behalf and they want him to go to [facility] to see his family one more time. Medication Change: No Medical Record Reviewed: Yes Mental Status Examination - Cognitive Function Orientation: Person Memory: Impaired Attention: Poor Concentration: Poor Association: Loose Fund of Knowledge: Poor - Mood Mood: Depressed, Anxious, Other (irate) - Affect Affect: Blunted - Speech Speech: Slurred - Language Language: Dysarthria - Formal Thought Process Formal Thought Process: Loosening of associations - Suicidal Ideation Suicidal Ideation: No - Homicidal Ideation Homicidal Ideation: No Goal/Treatment Plan - Goal/Treatment Plan Need for Continued Stay: Discharge may exacerbated symptoms, Severe functional impairment Progress Toward Problem(s) and Goals/Treatment Plan: The patient does not have capacity at this time to make medical decisions or sign out AMA. He still has cognitive decline as well as depression, both of which cloud his judgment and decision-making capacity. With improvement this may change. Close monitoring José for depression Isidoro for anxiety Support daily Education daily on his treatment and risks Family contact to gather their support
--- NOTE | 2018-05-14 15:08 | CP.PCM.PN ---
Subjective - Date & Time of Evaluation Date of Evaluation: 05/14/18 Time of Evaluation: 07:30 - Subjective Subjective: clinically same Objective - Vital Signs/Intake and Output Vital Signs (last 24 hours): Temp Pulse Resp BP Pulse Ox 97.6 F 88 20 147/69 98 05/14/18 08:00 05/14/18 08:00 05/14/18 08:00 05/14/18 11:00 05/14/18 08:00 Intake and Output: 05/14/18 05/14/18 06:59 18:59 Intake Total 120 360 Balance 120 360 - Medications Medications: Current Medications Allopurinol (Zyloprim) 100 mg PO DAILY [facility] Last Admin: 05/14/18 11:00 Dose: 100 mg Amlodipine Besylate (Norvasc) 10 mg PO DAILY [facility] Last Admin: 05/14/18 11:00 Dose: 10 mg Aspirin (Aspirin Chewable) 81 mg PO DAILY [facility] Last Admin: 05/14/18 11:00 Dose: 81 mg Calcitriol (Rocaltrol) 0.25 mcg PO DAILY [facility] Last Admin: 05/14/18 11:00 Dose: 0.25 mcg Carvedilol (Coreg) 25 mg PO BID [facility] Last Admin: 05/14/18 11:00 Dose: 25 mg Epoetin Nam (Procrit) 8,000 unit SC [facility] Escitalopram Oxalate (Lexapro) 10 mg PO DAILY [facility] Last Admin: 05/14/18 11:00 Dose: 10 mg Ferrous Gluconate (Fergon) 324 mg PO TID [facility] Last Admin: 05/14/18 14:40 Dose: 324 mg Finasteride (Proscar) 5 mg PO DAILY [facility] Last Admin: 05/14/18 11:00 Dose: 5 mg Furosemide (Lasix) 40 mg PO BID [facility] Last Admin: 05/14/18 11:00 Dose: 40 mg Hydralazine HCl (Apresoline) 25 mg PO Q4 PRN PRN Reason: Other Last Admin: 05/09/18 05:28 Dose: 25 mg Hydralazine HCl (Apresoline) 100 mg PO TID [facility] Last Admin: 05/14/18 14:40 Dose: 100 mg Lactulose (Enulose) 30 gm PO BID [facility] Last Admin: 05/14/18 10:59 Dose: 30 gm Minoxidil (Minoxidil) 2.5 mg PO DAILY [facility] Last Admin: 05/14/18 11:00 Dose: 2.5 mg Rosuvastatin Calcium (Crestor) 5 mg PO HS [facility] Last Admin: 05/13/18 21:54 Dose: 5 mg Sevelamer Carbonate (Renvela) 800 mg PO TIDCC [facility] Last Admin: 05/14/18 12:00 Dose: 800 mg Sodium Bicarbonate (Sodium Bicarbonate Tab) 650 mg PO BID [facility] Last Admin: 05/14/18 11:00 Dose: 650 mg Tamsulosin HCl (Flomax) 0.4 mg PO DAILY [facility] Last Admin: 05/14/18 11:00 Dose: 0.4 mg Vitamin B Complex/Vit C/Folic Acid (Nephro-Socorro) 1 tab PO 0800 [facility] Last Admin: 05/14/18 08:41 Dose: 1 tab - Labs Labs: 05/12/18 11:45 05/12/18 11:45 - Constitutional Appears: Well - Head Exam Head Exam: ATRAUMATIC, NORMAL INSPECTION, NORMOCEPHALIC - Eye Exam Eye Exam: EOMI, Normal appearance, PERRL Pupil Exam: NORMAL ACCOMODATION, PERRL - ENT Exam ENT Exam: Mucous Membranes Moist, Normal Exam - Neck Exam Neck Exam: Full ROM, Normal Inspection. absent: Lymphadenopathy - Respiratory Exam Respiratory Exam: Decreased Breath Sounds - Cardiovascular Exam Cardiovascular Exam: REGULAR RHYTHM, +S1, +S2 - GI/Abdominal Exam GI & Abdominal Exam: Soft, Diminished Bowel Sounds - Rectal Exam Rectal Exam: Deferred
--- NOTE | 2018-05-14 16:04 | CP.PCM.PN ---
Subjective - Date & Time of Evaluation Date of Evaluation: 05/14/18 Time of Evaluation: 16:03 - Subjective Subjective: Nephrology Consultation Note: Assessment: Stable Hypoglycemia with AMS HTN urgency Diabetic chronic Kidney Disease (E11.22) Hypertensive Chronic Kidney Disease (I12.9) Chronic Kidney Disease (N18.5) Stage 5 with 3800 mg proteinuria (R80.9) likely due to DM/HTN Anemia (D64.9), Hyperphosphatemia (E83.39), Secondary Hyperparathyroidism (E21.1), HTN (I12.9), Vit D def Plan need for dialysis d/w patient and mother/sister, he refused for dialysis. psychiatry suggested pt lack the decisional capacity. pt and his family refuses for any consideration of fialysis. just want to get d/c from hospital. Hypertension control with meds as ordered. Maintain hemodynamics stable. Avoid hypotension. Patient not on ACEI/ARB due to advanced CKD. added prn hydralazine along with hydralazine 100 mg tid, minoxidil 2.5 mg/day Monitor Input/Output, daily weights and renal function with basic metabolic panel diuresis with PO lasix added iron, MVI and calcitriol. epogen as ordered continue with sodium bicarb supplements 650 mg bid Dose meds/antibiotics for reduced GFR. Avoid fleets enema/magnesium based laxatives. Avoid nephrotoxins/NSAIDs/ iodinated contrast (unless needed emergently) Glycemic control Further work up/management as per primary team pt stable for d/c from renal perspective when planned with outpt renal follow up 1 week. Thanks for allowing me to participate in care of your patient. Will follow patient with you. Please call if any Qs. had d/w team and mother and sister [phone] Rashid Morales Office: [phone] Chief Complaint; low sugar Reason for consult: CKD management HPI: Pt is a 62 M with hx of diabetes Mellitus ( years), hypertension (years) alcohol in past, anemia, CKD 4/5 presented with complaints of low blood sugar and AMS with it. now better. Denies OTC/herbal meds or NSAIDs No recent iodinated contrast exposure. No obvious episodes of low BP. renal consult for CKD management pt feels beter. denies SOB/chest pain has hoarsenes/slurred speech, says due to stroke in past ROS: pt refused to see me, says go away 05/13/18 mother bedside, used [employer] for [place] interpretation. pt and mother just want to get d/c from hospital. pt keep refusing dialysis and mother fully supported his decisional despite explanation that pt lacks decisional capacity Physical Examination: General Appearance: Comfortable, in no acute respiratory distress, unco- operative . Vitals reviewed and noted as below Head; Atraumatic, normocephalic pt refused examination Labs/imaging reviewed. Past medical history, past surgical history, family history, social history, allergy reviewed and noted as below Family hx: no hx of CKD. Rest non-contributory renal sono: b/l cysts Vit D <12.8 PTH 1094 Hep B/C/HIV neg UA 2+ protein with 3.8 gram proteinuria and 1.6 gram albuminuria TSAT 22% Ferritin 28 Objective - Vital Signs/Intake and Output Vital Signs (last 24 hours): Temp Pulse Resp BP Pulse Ox 97.6 F 88 20 147/69 98 05/14/18 08:00 05/14/18 08:00 05/14/18 08:00 05/14/18 11:00 05/14/18 08:00 Intake and Output: 05/14/18 05/14/18 06:59 18:59 Intake Total 120 360 Balance 120 360 - Medications Medications: Current Medications Allopurinol (Zyloprim) 100 mg PO DAILY [facility] Last Admin: 05/14/18 11:00 Dose: 100 mg Amlodipine Besylate (Norvasc) 10 mg PO DAILY [facility] Last Admin: 05/14/18 11:00 Dose: 10 mg Aspirin (Aspirin Chewable) 81 mg PO DAILY [facility] Last Admin: 05/14/18 11:00 Dose: 81 mg Calcitriol (Rocaltrol) 0.25 mcg PO DAILY [facility] Last Admin: 05/14/18 11:00 Dose: 0.25 mcg Carvedilol (Coreg) 25 mg PO BID [facility] Last Admin: 05/14/18 11:00 Dose: 25 mg Epoetin Nam (Procrit) 8,000 unit SC MWF [facility] Escitalopram Oxalate (Lexapro) 10 mg PO DAILY [facility] Last Admin: 05/14/18 11:00 Dose: 10 mg Ferrous Gluconate (Fergon) 324 mg PO TID [facility] Last Admin: 05/14/18 14:40 Dose: 324 mg Finasteride (Proscar) 5 mg PO DAILY [facility] Last Admin: 05/14/18 11:00 Dose: 5 mg Furosemide (Lasix) 40 mg PO BID [facility] Last Admin: 05/14/18 11:00 Dose: 40 mg Hydralazine HCl (Apresoline) 25 mg PO Q4 PRN PRN Reason: Other Last Admin: 05/09/18 05:28 Dose: 25 mg Hydralazine HCl (Apresoline) 100 mg PO TID [facility] Last Admin: 05/14/18 14:40 Dose: 100 mg Lactulose (Enulose) 30 gm PO BID [facility] Last Admin: 05/14/18 10:59 Dose: 30 gm Minoxidil (Minoxidil) 2.5 mg PO DAILY [facility] Last Admin: 05/14/18 11:00 Dose: 2.5 mg Rosuvastatin Calcium (Crestor) 5 mg PO HS [facility] Last Admin: 05/13/18 21:54 Dose: 5 mg Sevelamer Carbonate (Renvela) 800 mg PO TIDCC [facility] Last Admin: 05/14/18 12:00 Dose: 800 mg Sodium Bicarbonate (Sodium Bicarbonate Tab) 650 mg PO BID [facility] Last Admin: 05/14/18 11:00 Dose: 650 mg Tamsulosin HCl (Flomax) 0.4 mg PO DAILY [facility] Last Admin: 05/14/18 11:00 Dose: 0.4 mg Vitamin B Complex/Vit C/Folic Acid (Nephro-Socorro) 1 tab PO 0800 [facility] Last Admin: 05/14/18 08:41 Dose: 1 tab - Labs Labs: 05/12/18 11:45 05/12/18 11:45
[2018-05-15] MEDS: Multivitamin Vitamin B Complex (Nephro-Vite) Tab PO SCH (08:02)
[2018-05-15] MEDS: Epoetin Alfa 4000 UNIT/ML Inj SC SCH ×2 (12:45→14:05)
--- NOTE | 2018-05-15 15:11 | CP.PCM.PN ---
Subjective - Date & Time of Evaluation Date of Evaluation: 05/15/18 Time of Evaluation: 15:10 - Subjective Subjective: Nephrology Consultation Note: Assessment: Stable Hypoglycemia with AMS HTN urgency Diabetic chronic Kidney Disease (E11.22) Hypertensive Chronic Kidney Disease (I12.9) Chronic Kidney Disease (N18.5) Stage 5 with 3800 mg proteinuria (R80.9) likely due to DM/HTN Anemia (D64.9), Hyperphosphatemia (E83.39), Secondary Hyperparathyroidism (E21.1), HTN (I12.9), Vit D def Plan need for dialysis d/w patient and mother/sister, he refused for dialysis. psychiatry suggested pt lack the decisional capacity. pt and his family refuses for any consideration of fialysis. just want to get d/c from hospital. Hypertension control with meds as ordered. Maintain hemodynamics stable. Avoid hypotension. Patient not on ACEI/ARB due to advanced CKD. added prn hydralazine along with hydralazine 100 mg lowered to bid, minoxidil 2.5 mg/day Monitor Input/Output, daily weights and renal function with basic metabolic panel diuresis with PO lasix added iron, MVI and calcitriol. epogen as ordered continue with sodium bicarb supplements 650 mg bid Dose meds/antibiotics for reduced GFR. Avoid fleets enema/magnesium based laxatives. Avoid nephrotoxins/NSAIDs/ iodinated contrast (unless needed emergently) Glycemic control Further work up/management as per primary team pt stable for d/c from renal perspective when planned with outpt renal follow up 1 week. Thanks for allowing me to participate in care of your patient. Will follow patient with you. Please call if any Qs. had d/w team and mother and sister [phone] Rashid Morales Office: [phone] Chief Complaint; low sugar Reason for consult: CKD management HPI: Pt is a 62 M with hx of diabetes Mellitus ( years), hypertension (years) alcohol in past, anemia, CKD 4/5 presented with complaints of low blood sugar and AMS with it. now better. Denies OTC/herbal meds or NSAIDs No recent iodinated contrast exposure. No obvious episodes of low BP. renal consult for CKD management pt feels beter. denies SOB/chest pain has hoarsenes/slurred speech, says due to stroke in past ROS: pt refused to see me, says go away 05/13/18 mother bedside, used [employer] for [place] interpretation. pt and mother just want to get d/c from hospital. pt keep refusing dialysis and mother fully supported his decisional despite explanation that pt lacks decisional capacity Physical Examination: General Appearance: Comfortable, in no acute respiratory distress, unco- operative . Vitals reviewed and noted as below Head; Atraumatic, normocephalic pt refused examination Labs/imaging reviewed. Past medical history, past surgical history, family history, social history, allergy reviewed and noted as below Family hx: no hx of CKD. Rest non-contributory renal sono: b/l cysts Vit D <12.8 PTH 1094 Hep B/C/HIV neg UA 2+ protein with 3.8 gram proteinuria and 1.6 gram albuminuria TSAT 22% Ferritin 28 Objective - Vital Signs/Intake and Output Vital Signs (last 24 hours): Temp Pulse Resp BP Pulse Ox 98.1 F 76 20 144/69 95 05/15/18 08:00 05/15/18 08:00 05/15/18 08:00 05/15/18 10:15 05/15/18 08:00 Intake and Output: 05/15/18 05/15/18 06:59 18:59 Intake Total 120 360 Output Total 400 Balance -280 360 - Medications Medications: Current Medications Allopurinol (Zyloprim) 100 mg PO DAILY [facility] Last Admin: 05/15/18 10:15 Dose: 100 mg Amlodipine Besylate (Norvasc) 10 mg PO DAILY [facility] Last Admin: 05/15/18 10:15 Dose: 10 mg Aspirin (Aspirin Chewable) 81 mg PO DAILY [facility] Last Admin: 05/15/18 10:15 Dose: 81 mg Calcitriol (Rocaltrol) 0.25 mcg PO DAILY [facility] Last Admin: 05/15/18 10:14 Dose: 0.25 mcg Carvedilol (Coreg) 25 mg PO BID [facility] Last Admin: 05/15/18 10:15 Dose: 25 mg Epoetin Nam (Procrit) 8,000 unit SC MWF [facility] Last Admin: 05/15/18 12:45 Dose: Not Given Escitalopram Oxalate (Lexapro) 10 mg PO DAILY [facility] Last Admin: 05/15/18 10:15 Dose: 10 mg Ferrous Gluconate (Fergon) 324 mg PO TID [facility] Last Admin: 05/15/18 14:06 Dose: 324 mg Finasteride (Proscar) 5 mg PO DAILY [facility] Last Admin: 05/15/18 10:14 Dose: 5 mg Furosemide (Lasix) 40 mg PO BID [facility] Last Admin: 05/15/18 10:15 Dose: 40 mg Hydralazine HCl (Apresoline) 25 mg PO Q4 PRN PRN Reason: Other Last Admin: 05/15/18 10:15 Dose: 25 mg Hydralazine HCl (Apresoline) 100 mg PO BID [facility] Lactulose (Enulose) 30 gm PO BID [facility] Last Admin: 05/15/18 10:14 Dose: 30 gm Minoxidil (Minoxidil) 2.5 mg PO DAILY [facility] Last Admin: 05/15/18 10:14 Dose: 2.5 mg Rosuvastatin Calcium (Crestor) 5 mg PO HS [facility] Last Admin: 05/14/18 21:51 Dose: Not Given Sevelamer Carbonate (Renvela) 800 mg PO TIDCC [facility] Last Admin: 05/15/18 12:33 Dose: 800 mg Sodium Bicarbonate (Sodium Bicarbonate Tab) 650 mg PO BID [facility] Last Admin: 05/15/18 10:15 Dose: 650 mg Tamsulosin HCl (Flomax) 0.4 mg PO DAILY [facility] Last Admin: 05/15/18 10:14 Dose: 0.4 mg Vitamin B Complex/Vit C/Folic Acid (Nephro-Socorro) 1 tab PO 0800 [facility] Last Admin: 05/15/18 08:02 Dose: 1 tab - Labs Labs: 05/12/18 11:45 05/12/18 11:45
--- NOTE | 2018-05-15 18:10 | CP.PCM.PN ---
Subjective - Date & Time of Evaluation Date of Evaluation: 05/15/18 Time of Evaluation: 07:45 - Subjective Subjective: clinically same Objective - Vital Signs/Intake and Output Vital Signs (last 24 hours): Temp Pulse Resp BP Pulse Ox 98.2 F 75 20 131/62 97 05/15/18 16:00 05/15/18 16:00 05/15/18 16:00 05/15/18 17:58 05/15/18 16:00 Intake and Output: 05/15/18 05/15/18 06:59 18:59 Intake Total 120 360 Output Total 400 Balance -280 360 - Medications Medications: Current Medications Allopurinol (Zyloprim) 100 mg PO DAILY [facility] Last Admin: 05/15/18 10:15 Dose: 100 mg Amlodipine Besylate (Norvasc) 10 mg PO DAILY [facility] Last Admin: 05/15/18 10:15 Dose: 10 mg Aspirin (Aspirin Chewable) 81 mg PO DAILY [facility] Last Admin: 05/15/18 10:15 Dose: 81 mg Calcitriol (Rocaltrol) 0.25 mcg PO DAILY [facility] Last Admin: 05/15/18 10:14 Dose: 0.25 mcg Carvedilol (Coreg) 25 mg PO BID [facility] Last Admin: 05/15/18 17:58 Dose: 25 mg Epoetin Nam (Procrit) 8,000 unit SC MWF [facility] Last Admin: 05/15/18 12:45 Dose: Not Given Escitalopram Oxalate (Lexapro) 10 mg PO DAILY [facility] Last Admin: 05/15/18 10:15 Dose: 10 mg Ferrous Gluconate (Fergon) 324 mg PO TID [facility] Last Admin: 05/15/18 17:58 Dose: 324 mg Finasteride (Proscar) 5 mg PO DAILY [facility] Last Admin: 05/15/18 10:14 Dose: 5 mg Furosemide (Lasix) 40 mg PO BID [facility] Last Admin: 05/15/18 17:58 Dose: 40 mg Hydralazine HCl (Apresoline) 25 mg PO Q4 PRN PRN Reason: Other Last Admin: 05/15/18 10:15 Dose: 25 mg Hydralazine HCl (Apresoline) 100 mg PO BID [facility] Last Admin: 05/15/18 17:57 Dose: 100 mg Lactulose (Enulose) 30 gm PO BID [facility] Last Admin: 05/15/18 18:01 Dose: 30 gm Minoxidil (Minoxidil) 2.5 mg PO DAILY [facility] Last Admin: 05/15/18 10:14 Dose: 2.5 mg Rosuvastatin Calcium (Crestor) 5 mg PO HS [facility] Last Admin: 05/14/18 21:51 Dose: Not Given Sevelamer Carbonate (Renvela) 800 mg PO TIDCC [facility] Last Admin: 05/15/18 17:58 Dose: 800 mg Sodium Bicarbonate (Sodium Bicarbonate Tab) 650 mg PO BID [facility] Last Admin: 05/15/18 17:58 Dose: 650 mg Tamsulosin HCl (Flomax) 0.4 mg PO DAILY [facility] Last Admin: 05/15/18 10:14 Dose: 0.4 mg Vitamin B Complex/Vit C/Folic Acid (Nephro-Socorro) 1 tab PO 0800 [facility] Last Admin: 05/15/18 08:02 Dose: 1 tab - Labs Labs: 05/12/18 11:45 05/12/18 11:45 - Constitutional Appears: Well - Head Exam Head Exam: ATRAUMATIC, NORMAL INSPECTION, NORMOCEPHALIC - Eye Exam Eye Exam: EOMI, Normal appearance, PERRL Pupil Exam: NORMAL ACCOMODATION, PERRL - ENT Exam ENT Exam: Mucous Membranes Moist, Normal Exam - Neck Exam Neck Exam: Full ROM, Normal Inspection. absent: Lymphadenopathy - Respiratory Exam Respiratory Exam: Decreased Breath Sounds - Cardiovascular Exam Cardiovascular Exam: REGULAR RHYTHM, +S1, +S2 - GI/Abdominal Exam GI & Abdominal Exam: Soft, Diminished Bowel Sounds - Rectal Exam Rectal Exam: Deferred
[2018-05-16] MEDS: Multivitamin Vitamin B Complex (Nephro-Vite) Tab PO SCH (08:47)
--- NOTE | 2018-05-16 13:34 | CP.PCM.PN ---
Subjective - Date & Time of Evaluation Date of Evaluation: 05/16/18 Time of Evaluation: 13:34 - Subjective Subjective: Nephrology Consultation Note: Assessment: Stable Hypoglycemia with AMS HTN urgency Diabetic chronic Kidney Disease (E11.22) Hypertensive Chronic Kidney Disease (I12.9) Chronic Kidney Disease (N18.5) Stage 5 with 3800 mg proteinuria (R80.9) likely due to DM/HTN Anemia (D64.9), Hyperphosphatemia (E83.39), Secondary Hyperparathyroidism (E21.1), HTN (I12.9), Vit D def Plan need for dialysis d/w patient and mother/sister, he refused for dialysis. psychiatry suggested pt lack the decisional capacity. pt and his family refuses for any consideration of fialysis. just want to get d/c from hospital. Hypertension control with meds as ordered. Maintain hemodynamics stable. Avoid hypotension. Patient not on ACEI/ARB due to advanced CKD. added prn hydralazine along with hydralazine 100 mg lowered to bid, minoxidil 2.5 mg/day Monitor Input/Output, daily weights and renal function with basic metabolic panel diuresis with PO lasix added iron, MVI and calcitriol. epogen as ordered continue with sodium bicarb supplements 650 mg bid Dose meds/antibiotics for reduced GFR. Avoid fleets enema/magnesium based laxatives. Avoid nephrotoxins/NSAIDs/ iodinated contrast (unless needed emergently) Glycemic control Further work up/management as per primary team pt stable for d/c from renal perspective when planned with outpt renal follow up 1 week. Thanks for allowing me to participate in care of your patient. Will follow patient with you. Please call if any Qs. had d/w team and mother and sister [phone] Rashid Morales Office: [phone] Chief Complaint; low sugar Reason for consult: CKD management HPI: Pt is a 62 M with hx of diabetes Mellitus ( years), hypertension (years) alcohol in past, anemia, CKD 4/5 presented with complaints of low blood sugar and AMS with it. now better. Denies OTC/herbal meds or NSAIDs No recent iodinated contrast exposure. No obvious episodes of low BP. renal consult for CKD management pt feels beter. denies SOB/chest pain has hoarsenes/slurred speech, says due to stroke in past ROS: pt refused to see me, says go away 05/13/18 mother bedside, used [employer] for [place] interpretation. pt and mother just want to get d/c from hospital. pt keep refusing dialysis and mother fully supported his decisional despite explanation that pt lacks decisional capacity Physical Examination: General Appearance: Comfortable, in no acute respiratory distress, unco- operative . Vitals reviewed and noted as below Head; Atraumatic, normocephalic pt refused examination Labs/imaging reviewed. Past medical history, past surgical history, family history, social history, allergy reviewed and noted as below Family hx: no hx of CKD. Rest non-contributory renal sono: b/l cysts Vit D <12.8 PTH 1094 Hep B/C/HIV neg UA 2+ protein with 3.8 gram proteinuria and 1.6 gram albuminuria TSAT 22% Ferritin 28 Objective - Vital Signs/Intake and Output Vital Signs (last 24 hours): Temp Pulse Resp BP Pulse Ox 98.7 F 82 20 119/62 98 05/16/18 08:00 05/16/18 08:00 05/16/18 08:00 05/16/18 09:17 05/16/18 08:00 Intake and Output: 05/16/18 05/16/18 06:59 18:59 Intake Total 100 Output Total 300 Balance -200 - Medications Medications: Current Medications Allopurinol (Zyloprim) 100 mg PO DAILY [facility] Last Admin: 05/16/18 09:17 Dose: 100 mg Amlodipine Besylate (Norvasc) 10 mg PO DAILY [facility] Last Admin: 05/16/18 09:17 Dose: 10 mg Aspirin (Aspirin Chewable) 81 mg PO DAILY [facility] Last Admin: 05/16/18 09:17 Dose: 81 mg Calcitriol (Rocaltrol) 0.25 mcg PO DAILY [facility] Last Admin: 05/16/18 09:16 Dose: 0.25 mcg Carvedilol (Coreg) 25 mg PO BID [facility] Last Admin: 05/16/18 09:17 Dose: 25 mg Epoetin Nam (Procrit) 8,000 unit SC MWF [facility] Last Admin: 05/15/18 12:45 Dose: Not Given Escitalopram Oxalate (Lexapro) 10 mg PO DAILY [facility] Last Admin: 05/16/18 09:16 Dose: 10 mg Ferrous Gluconate (Fergon) 324 mg PO TID [facility] Last Admin: 05/16/18 09:16 Dose: 324 mg Finasteride (Proscar) 5 mg PO DAILY [facility] Last Admin: 05/16/18 09:16 Dose: 5 mg Furosemide (Lasix) 40 mg PO BID [facility] Last Admin: 05/16/18 09:16 Dose: 40 mg Hydralazine HCl (Apresoline) 25 mg PO Q4 PRN PRN Reason: Other Last Admin: 05/15/18 10:15 Dose: 25 mg Hydralazine HCl (Apresoline) 100 mg PO BID [facility] Last Admin: 05/16/18 09:18 Dose: 100 mg Lactulose (Enulose) 30 gm PO BID [facility] Last Admin: 05/16/18 09:18 Dose: 30 gm Minoxidil (Minoxidil) 2.5 mg PO DAILY [facility] Last Admin: 05/16/18 09:17 Dose: 2.5 mg Rosuvastatin Calcium (Crestor) 5 mg PO HS [facility] Last Admin: 05/15/18 21:16 Dose: 5 mg Sevelamer Carbonate (Renvela) 800 mg PO TIDCC [facility] Last Admin: 05/16/18 12:12 Dose: 800 mg Sodium Bicarbonate (Sodium Bicarbonate Tab) 650 mg PO BID [facility] Last Admin: 05/16/18 09:17 Dose: 650 mg Tamsulosin HCl (Flomax) 0.4 mg PO DAILY [facility] Last Admin: 05/16/18 09:17 Dose: 0.4 mg Vitamin B Complex/Vit C/Folic Acid (Nephro-Socorro) 1 tab PO 0800 [facility] Last Admin: 05/16/18 08:47 Dose: 1 tab - Labs Labs: 05/12/18 11:45 05/12/18 11:45
[2018-05-16 16:21] VITALS: PULSE 65; TEMP 98.2; O2SAT 94
[2018-05-16 17:49] VITALS: BP 124/65
== END 2018-05-16 20:15 | DRG 637 ==
LOC: C.ER 06:56 → MERGE 09:58 → C.9E 09:58 → C.6T 11:43 → C.3T 05-11 00:26
PROVIDERS: ADMIT Internal Medicine Nephrology; ATTEND Internal Medicine Nephrology
DX: E11.649 Type 2 diabetes mellitus with hypoglycemia without coma (principal); J18.9 Pneumonia, unspecified organism; I13.2 Hypertensive heart and chronic kidney disease with heart failure and with stage 5 chronic kidney disease, or end stage renal disease; I69.351 Hemiplegia and hemiparesis following cerebral infarction affecting right dominant side; F32.2 Major depressive disorder, single episode, severe without psychotic features; N17.9 Acute kidney failure, unspecified; I16.0 Hypertensive urgency; N18.5 Chronic kidney disease, stage 5; N25.81 Secondary hyperparathyroidism of renal origin; T38.3X5A Adverse effect of insulin and oral hypoglycemic [antidiabetic] drugs, initial encounter; I50.9 Heart failure, unspecified; E11.22 Type 2 diabetes mellitus with diabetic chronic kidney disease; D64.9 Anemia, unspecified; E83.39 Other disorders of phosphorus metabolism; I48.91 Unspecified atrial fibrillation; J44.9 Chronic obstructive pulmonary disease, unspecified; E66.9 Obesity, unspecified; F41.9 Anxiety disorder, unspecified; F03.90 Unspecified dementia, unspecified severity, without behavioral disturbance, psychotic disturbance, mood disturbance, and anxiety; E55.9 Vitamin D deficiency, unspecified; R26.81 Unsteadiness on feet; Z53.29 Procedure and treatment not carried out because of patient's decision for other reasons; Z86.73 Personal history of transient ischemic attack (TIA), and cerebral infarction without residual deficits; Z91.19 Patient's noncompliance with other medical treatment and regimen; Z87.891 Personal history of nicotine dependence; Z87.442 Personal history of urinary calculi; I69.322 Dysarthria following cerebral infarction; Z87.01 Personal history of pneumonia (recurrent)